=== PATIENT | female | born 1960 | race Caucasian/White ===

== ENCOUNTER → 2018-01-21 | Outpatient (CLI) | payer BC ==
--- NOTE | 2018-01-24 13:13 | MM ---
Reason for exam: screening (asymptomatic). Last mammogram was performed 2 years and 4 months ago. History: Family history of breast cancer in aunt. Benign stereotactic core biopsy, 2002. Physical Findings: A clinical breast exam by your physician is recommended on an annual basis and results should be correlated with mammographic findings. MG 3D Screening Mammo W/Cad Bilateral CC and MLO view(s) were taken. Prior study comparison: September 29, 2015, bilateral MG screening mammo w CAD. October 27, 2013, left breast MG diagnostic mammo LT w CAD. There are scattered fibroglandular densities. Previous mammotome biopsy in the left breast. No significant changes when compared with prior studies. ASSESSMENT: Benign, BI-RAD 2 RECOMMENDATION: Routine screening mammogram of both breasts in 1 year.
== END | disposition home or self-care (01) ==
LOC: RADMAMWWP 09:57
PROVIDERS: ATTEND Obstetrics & Gynecology
DX: Z12.31 Encounter for screening mammogram for malignant neoplasm of breast (principal)
CPT/HCPCS: 77063; 77067

== ENCOUNTER → 2019-09-12 | Outpatient (CLI) | payer BC ==
[2019-09-12 07:47] LABS: Basophils # (A) 0.1 k/uL (0-0.2); Basophils % (A) 1 %; Eosinophils # (A) 0.3 k/uL (0-0.7); Eosinophils % (A) 4 %; HCT 43.1 % (34.0-46.0); HGB 13.7 gm/dL (11.4-16.0); Lymphocytes # (A) 3.2 k/uL (1.0-4.8); Lymphocytes % (A) 39 %; MCH 30.9 pg (25.0-35.0); MCHC 31.7 g/dL (31.0-37.0); MCV 97.6 fL (80.0-100.0); Mean Platelet Volume 7.5; Monocytes # (A) 0.4 k/uL (0-1.0); Monocytes % (A) 5 %; Neutrophils % (A) 48 %; Platelet Count 311 k/uL (150-450); RBC 4.42 m/uL (3.80-5.40); RDW 12.2 % (11.5-15.5); WBC 8.3 k/uL (3.8-10.6)
[2019-09-12 11:54] LABS: T4, Free (Free Thyroxine) 0.9 ng/dL (0.80-1.80)
[2019-09-12 12:02] LABS: African American GFR (CKD) 57.7 (60.0-200.0); Albumin 3.9 g/dL (3.80-4.90); Albumin/Globulin Ratio 1.77 (1.60-3.17); Anion Gap 5.1 mmol/L (4.00-12.00); BUN/Creat Ratio 11.67 Ratio (12.00-20.00); Calcium 9.8 mg/dL (8.7-10.3); Carbon Dioxide 28.9 mmol/L (21.6-31.8); Chol/HDL Ratio 3.87; Globulin 2.2 g/dL (1.6-3.3); LDL Cholesterol,Calculated 88.4 mg/dL (0.0-131.0); Non-African American GFR(CKD) 49.8 (60.0-200.0); Potassium 4.5 mmol/L (3.5-5.5); Total Bilirubin 0.2 mg/dL (0.2-1.2); Total Protein 6.1 g/dL (6.2-8.2); VLDL Calculation 43.6 mg/dL (5.00-40.00)
[2019-09-12 13:13] LABS: Hemoglobin A1C 6.3 % (4.0-6.0)
== END | disposition home or self-care (01) ==
LOC: LABWHC1 07:05
PROVIDERS: ATTEND Internal Medicine Critical Care Medicine
DX: I25.10 Atherosclerotic heart disease of native coronary artery without angina pectoris (principal); E78.5 Hyperlipidemia, unspecified; I73.00 Raynaud's syndrome without gangrene; M35.00 Sjogren syndrome, unspecified
CPT/HCPCS: 36415; 80053; 80061; 82306; 83036; 84439; 84443; 85025

== ENCOUNTER → 2019-12-03 | Outpatient (CLI) | payer BC ==
--- NOTE | 2019-12-03 22:23 | BD ---
EXAMINATION TYPE: Axial Bone Density DATE OF EXAM: 12/03/2019 COMPARISON: 09/29/2015 CLINICAL HISTORY: Disorder of bone. Postmenopausal female. Height: 60.5 IN Weight: 118 LBS FRAX RISK QUESTIONS: Rheumatoid Arthritis: YES Current Tobacco Use: YES RISK FACTORS HISTORY OF: Active: YES Postmenopausal woman: PARTIAL HYST AGE 47 MEDICATIONS: Additional Medications: CALCIUM, ASPIRIN, BENADRYL, CARAFATE, EFFEXOR,JOEY, LASIX, LOVASTATIN, TOPA MAX, LOPAMAX, TRAZODONE, JARDIANCE, MAGNESIUM, FISH OIL, EXAM MEASUREMENTS: Bone mineral densitometry was performed using the Snagsta System. Bone mineral density as measured about the Lumbar spine is: ----- L1-L4(G/cm2): 0.857 T Score Values are as follows: ----- L2: -2.7 ----- L3: -2.4 ----- L4: -3.0 ----- L1-L4: -2.7 Bone mineral density has: Decreased -7.5% since study of: 09/29/2015 Bone mineral density about the R hip (g/cm2): 0.674 Bone mineral density about the L hip (g/cm2): 0.726 T Score values are as follows: -----R Neck: -2.6 -----L Neck: -2.2 -----R Total: -2.2 -----L Total: -2.0 Bone mineral density has: Decreased -9.7% since study of: 09/29/2015 IMPRESSION: Osteoporosis (T Score less than -2.5) is now present. Interval demineralization progression noted. There is increased fracture risk and therapy is usually indicated based on age. Re-Screen 1-2 years. NOTE: T-SCORE=SD OF THE YOUNG ADULT MEAN.
== END | disposition home or self-care (01) ==
LOC: RADBDWWP 10:44
PROVIDERS: ATTEND Obstetrics & Gynecology
DX: M81.0 Age-related osteoporosis without current pathological fracture (principal)
CPT/HCPCS: 77080

== ENCOUNTER → 2020-01-19 | Outpatient (CLI) | payer BC ==
--- NOTE | 2020-01-20 14:29 | MM ---
Reason for exam: screening (asymptomatic). Last mammogram was performed 2 years ago. History: Family history of breast cancer in aunt. Benign stereotactic core biopsy, 2002. Physical Findings: A clinical breast exam by your physician is recommended on an annual basis and results should be correlated with mammographic findings. MG 3D Screening Mammo W/Cad Bilateral CC and MLO view(s) were taken. Prior study comparison: January 21, 2018, bilateral MG 3d screening mammo w/cad. September 29, 2015, bilateral MG screening mammo w CAD. The breast tissue is heterogeneously dense. This may lower the sensitivity of mammography. Previous mammotome biopsy in the left breast. No significant changes when compared with prior studies. ASSESSMENT: Benign, BI-RAD 2 RECOMMENDATION: Routine screening mammogram of both breasts in 1 year.
== END | disposition home or self-care (01) ==
LOC: RADMAMWWP 14:48
PROVIDERS: ATTEND Obstetrics & Gynecology
DX: Z12.31 Encounter for screening mammogram for malignant neoplasm of breast (principal)
CPT/HCPCS: 77063; 77067

== ENCOUNTER 2020-09-30 10:21 | Day surgery (SDC) | payer BC ==
[2020-09-27 16:00] VITALS: BMI 22.4
[~2020-09-30 10:21] MED LIST: ALPRAZolam 0.25 MG TAB PO PRN; ALPRAZolam 0.5 MG TAB PO PRN; ASPIRIN 325 MG TAB PO PRN; HEPARIN SODIUM,PORCINE 10,000 UNIT in SODIUM CHLORIDE 0.9% 1,000 ML IRRIGATION PRN; HEPARIN SODIUM,PORCINE 2,500 UNIT in SODIUM CHLORIDE 0.9% 250 ML IRRIGATION PRN; SODIUM CHLORIDE 0.9% 1,000 ML in EMPTY BAG 1 BAG IV ONE; ZOLPIDEM 5 MG TAB PO PRN
[2020-09-30 10:55] VITALS: RESP 16; TEMP 98.9
[2020-09-30 12:03] LABS: Basophils % (A) 0 %; Eosinophils % (A) 0 %; HCT 40.9 % (34.0-46.0); HGB 13.6 gm/dL (11.4-16.0); Lymphocytes # (A) 0.7 k/uL (1.0-4.8); Lymphocytes % (A) 11 %; MCH 32.7 pg (25.0-35.0); MCHC 33.3 g/dL (31.0-37.0); MCV 98.3 fL (80.0-100.0); Mean Platelet Volume 8.3; Monocytes # (A) 0.1 k/uL (0-1.0); Monocytes % (A) 2 %; Neutrophils # (A) 5.6 k/uL (1.3-7.7); Neutrophils % (A) 87 %; Platelet Count 316 k/uL (150-450); RBC 4.16 m/uL (3.80-5.40); RDW 13.2 % (11.5-15.5); WBC 6.5 k/uL (3.8-10.6)
[2020-09-30 12:13] LABS: Calcium 9.6 mg/dL (8.4-10.2)
[2020-09-30] MEDS ORDERED: MIDAZOLAM 2 MG/2 ML VIAL IV ONE (12:33)
[2020-09-30] MEDS ORDERED: LIDOCAINE 1% INJ 10MG/ML (20 ML MDV) SQ ONE (12:36)
[2020-09-30] MEDS ORDERED: IOPAMIDOL-250 100ML BTL INTRAARTER ONE (12:46)
[2020-09-30] MEDS ORDERED: SODIUM CHLORIDE 0.9% 1,000 ML IV SCH (13:00)
--- NOTE | 2020-09-30 13:22 | IR ---
EXAMINATION TYPE: IR angio abdominal w runoff DATE OF EXAM: 09/30/2020 COMPARISON: NONE HISTORY: Fluoroscopy time. Fluoroscopy was provided to the referring clinician.
--- NOTE | 2020-09-30 14:32 | LTR ---
Re: Sophia Manzanares (62) Dear , Ms. Sophia Manzanares was seen in the office recently for cardiac followup and at that point she was experiencing right foot discomfort with exertion, but for the last few days it was even at rest. I did not feel any good pedal pulse on her on the right side and because of that, I scheduled the patient to undergo a duplex study and that revealed occluded right SFA, which was confirmed by angiogram today. The patient is going to undergo a FUNERAL ARRANGEMENT DIRECTOR of the right SFA to be performed in the next few days. I want to thank you for allowing me to participate in this patient's care. Please do not hesitate to call with any questions or concerns. Sincerely, Flip Martinez M.D. JANEY / PRITI: [id number] /
--- NOTE | 2020-09-30 14:44 | AN ---
ANGIOGRAPHY REPORT DATE OF SERVICE: 09/30/2020 PERFORMING PHYSICIAN: Flip Martinez M.D. PROCEDURE PERFORMED: 1. Abdominal aortogram. 2. Bilateral lower extremity runoff. INDICATION: Right foot resting pain without tissue loss consistent with critical limb ischemia. She underwent an arterial duplex study which revealed severe femoral-popliteal disease on the right side. APPROACH: Right common femoral artery. COMPLICATIONS: None. LEVEL OF SEDATION: Moderate, with sedation length of 10 minutes. PROCEDURE DESCRIPTION: After obtaining informed consent, the patient was brought to the cardiac label pinker. The right common femoral artery was cannulated using micropuncture technique. The micropuncture wire passed easily. Then I placed a 5-Georgian sheath at the right common femoral artery. Please note that access to the right common femoral artery was performed using ultrasound guidance. After that I did an abdominal aortogram and bilateral lower extremity runoff using a 5- Georgian pigtail catheter which was initially placed at the level of the renal arteries, then it was pulled into above the bifurcation of the aorta to right and left common iliac arteries. The procedure was completed without any complication. SELECTIVE PERIPHERAL ANGIOGRAM: 1. The aorta appeared to be angiographically normal. It bifurcates into right and left common iliac arteries. 2. Common iliac arteries. The right and left common iliac arteries appeared to be angiographically normal. 3. Internal iliac arteries. Both are patent. 4. External iliac arteries. The right external iliac artery appeared to be angiographically normal and the left external iliac artery appeared to have mild disease only. 5. Common femoral arteries. The right common femoral artery appeared to have mild to moderate disease and the left common femoral artery appeared to be angiographically normal. 6. Profundae. Both profundae are patent. 7. SFA. The right SFA is occluded in the mid portion and the left SFA has mild to moderate diffuse disease. 8. Popliteals. Both popliteals appeared to be angiographically normal. 9. Below the knee. There is 3-vessel runoff below the knee bilaterally with sluggish flow to the right. CONCLUSION: Occluded right SFA in the mid portion. POST-PROCEDURE MANAGEMENT: 1. MERCANTILE AGENT of the right SFA. 2. Follow up with the patient. MMODL / IJN: [id number] /
[2020-09-30 16:44] VITALS: BP 138/63; PULSE 64
== END 2020-09-30 17:52 | disposition home or self-care (01) ==
LOC: CATHCVL 10:21
PROVIDERS: ATTEND Internal Medicine Interventional Cardiology
DX: I70.92 Chronic total occlusion of artery of the extremities (principal)
CPT/HCPCS: 36200; 75625; 75716; 76937; 80048; 85025; C1769 ×4; C1894; J2250; J2001; Q9966

== ENCOUNTER 2020-10-13 11:01 | Day surgery (SDC) | payer BC ==
[~2020-10-13 11:01] MED LIST changes: -ALPRAZolam 0.5 MG TAB PO PRN; -HEPARIN SODIUM,PORCINE 10,000 UNIT in SODIUM CHLORIDE 0.9% 1,000 ML IRRIGATION PRN; -HEPARIN SODIUM,PORCINE 2,500 UNIT in SODIUM CHLORIDE 0.9% 250 ML IRRIGATION PRN; +SODIUM CHLORIDE 0.9% 500 ML 500 ML with niCARdipine 6.25 MG, NITROGLYCERIN-D5W PMX 0.05... IV ONE; -ZOLPIDEM 5 MG TAB PO PRN
[2020-10-13] MEDS ORDERED: SODIUM CHLORIDE 0.9% 1,000 ML IV ONE (11:14)
[2020-10-13 11:42] LABS: Basophils % (A) 0 %; Eosinophils % (A) 0 %; HCT 45.2 % (34.0-46.0); HGB 15.3 gm/dL (11.4-16.0); Lymphocytes # (A) 0.8 k/uL (1.0-4.8); Lymphocytes % (A) 10 %; MCH 32.9 pg (25.0-35.0); MCHC 33.8 g/dL (31.0-37.0); MCV 97.3 fL (80.0-100.0); Mean Platelet Volume 7.5; Monocytes # (A) 0.1 k/uL (0-1.0); Monocytes % (A) 1 %; Neutrophils # (A) 7.2 k/uL (1.3-7.7); Neutrophils % (A) 88 %; Platelet Count 391 k/uL (150-450); RBC 4.65 m/uL (3.80-5.40); RDW 12.6 % (11.5-15.5); WBC 8.1 k/uL (3.8-10.6)
[2020-10-13 11:51] LABS: Calcium 10.3 mg/dL (8.4-10.2); Potassium 3.9 mmol/L (3.5-5.1)
[2020-10-13] MEDS ORDERED: LIDOCAINE 1% INJ 10MG/ML (20 ML MDV) ONE (13:19)
[2020-10-13] MEDS ORDERED: MIDAZOLAM 2 MG/2 ML VIAL IV ONE (13:30)
[2020-10-13] MEDS ORDERED: LIDOCAINE 1% INJ 10MG/ML (20 ML MDV) SQ ONE (13:33)
[2020-10-13] MEDS ORDERED: HEPARIN SODIUM 1,000 UN/ML (10ML VL) IV ONE (13:40)
[2020-10-13] MEDS ORDERED: fentaNYL (PF) 50 MCG/ML 2 ML AMP ONE (13:42)
[2020-10-13] MEDS: fentaNYL (PF) 50 MCG/ML 2 ML AMP IV ONE ×2 (13:45→14:30)
[2020-10-13] MEDS: NITROGLYCERIN 1000MCG/10ML SYRINGE INTRAARTER ONE ×2 (14:35→14:40)
[2020-10-13] MEDS: niCARdipine Syringe (1,000 mcg/10 mL) INTRAARTER ONE ×3 (14:36→14:40)
[2020-10-13] MEDS ORDERED: IOPAMIDOL-370 100ML BTL INJ ONE (14:37)
[2020-10-13] MEDS ORDERED: CLOPIDOGREL 75 MG TAB PO ONE (14:47)
[2020-10-13] MEDS ORDERED: SODIUM CHLORIDE 0.9% 1,000 ML in EMPTY BAG 1 BAG IV SCH (15:00)
--- NOTE | 2020-10-13 15:55 | IR ---
Fluoroscopy HISTORY: Pain in right leg 14.9 minutes fluoroscopy time supplied to the referring clinician. 368 intraoperative C-arm images d ocument the procedure. See dictated report from cardiology.
[2020-10-13 16:46] VITALS: RESP 18
[2020-10-13] MEDS ORDERED: ATROPINE SULFATE 0.1 MG/ML 10ML SYRINGE ONE (17:54)
[2020-10-13] MEDS: VENLAFAXINE HCL 75 MG TAB PO SCH (20:36)
[2020-10-13] MEDS: TOPIRAMATE 25 MG TAB PO SCH (20:36)
[2020-10-13] MEDS: SUCRALFATE 1 GM TAB PO SCH (20:36)
[2020-10-13] MEDS ORDERED: diphenhydrAMINE 25 MG CAP PO SCH (21:00)
[2020-10-13] MEDS ORDERED: traZODone HCL 100 MG TAB PO SCH (21:00)
[2020-10-13] MEDS ORDERED: EZETIMIBE 10 MG TAB PO SCH (21:00)
[2020-10-13] MEDS ORDERED: ASPIRIN 325 MG TAB PO SCH (21:00)
[2020-10-13] MEDS ORDERED: MORPHINE SULFATE ER 15 MG TABLET PO SCH (21:00)
[2020-10-13] MEDS ORDERED: NON FORMULARY DRUG (Lovastatin 40 MG Tab) PO SCH (21:00)
--- NOTE | 2020-10-13 21:35 | LTR ---
October 13, 2020 To: Dr. Juanpablo Inman Re: Sophia FryeAwais (1960) Dear Dr. Inman, Ms. Sophia Manzanares underwent successful angioplasty of the right femoral artery with an excellent angiographic result and reduction of stenosis from 100% to 0%. I want to thank you for allowing me to participate in this patient's care. Please do not hesitate to call with any questions or concerns. Sincerely, Flip Martinez M.D. JANEY / PRITI: [id number] /
[2020-10-14 05:29] VITALS: TEMP 98.1
[2020-10-14] MEDS ORDERED: LEVOTHYROXINE 25 MCG TAB PO SCH (06:30)
[2020-10-14 07:58] LABS: Potassium 3.5 mmol/L (3.5-5.1)
[2020-10-14 08:09] LABS: Basophils % (A) 0 %; Eosinophils # (A) 0.1 k/uL (0-0.7); Eosinophils % (A) 1 %; HCT 34.9 % (34.0-46.0); Lymphocytes # (A) 2.6 k/uL (1.0-4.8); Lymphocytes % (A) 25 %; MCH 33.1 pg (25.0-35.0); MCV 97.5 fL (80.0-100.0); Mean Platelet Volume 7.7; Monocytes # (A) 0.4 k/uL (0-1.0); Monocytes % (A) 4 %; Neutrophils % (A) 68 %; Platelet Count 276 k/uL (150-450); RBC 3.58 m/uL (3.80-5.40); RDW 12.7 % (11.5-15.5); WBC 10.4 k/uL (3.8-10.6)
--- NOTE | 2020-10-14 08:18 | AN ---
ANGIOGRAPHY REPORT DATE OF SERVICE: October 13, 2020. PERFORMING PHYSICIAN: Flip Martinez MD. PROCEDURE PERFORMED: 1. Atherectomy of the right SFA using the HawkOne device with extraction of plaque. 2. Intravascular ultrasound (IVUS) of the right SFA. 3. Successful balloon angioplasty of the mid and distal right SFA. 4. Successful stenting of the proximal right SFA. 5. Right lower extremity angiogram. 6. Left common femoral artery angiogram. 7. Ultrasound-guided access of the left common femoral artery. INDICATION: Critical limb ischemia in this 60-year-old female patient with coronary artery disease as well as hypertension and dyslipidemia and borderline diabetes. APPROACH: Left common femoral artery. COMPLICATION: None. LEVEL OF SEDATION: Moderate with sedation length of 78 minutes. PROCEDURE DESCRIPTION: After obtaining informed consent, the patient was brought to the cardiac catholic priest. The left common femoral artery was cannulated using micropuncture technique and a micropuncture wire passed easily. Then I placed a 6-Mozambican sheath 70 cm at the left common femoral artery. At that point, anticoagulation was initiated using heparin. Continuous ACT monitoring was performed throughout the procedure. After that, I did select the right common femoral artery using 0.035 stiff Glidewire with the backup support of 5-Mozambican RIM catheter. After that I did advance the sheath over the wire and the catheter to the right common femoral artery. Right lower extremity angiogram was performed and revealed 3 vessel runoff below the knee on the right side with a sluggish flow as well as occluded right SFA in the mid to distal portion and severe diffuse disease involving the right SFA as well as intermediate lesion involving the right common femoral artery. After that I did cross the LUNCHEONETTE MANAGER of the right SFA using a 014 wire. I did intravascular ultrasound which showed that I was in the true lumen with a diameter of 5 mm. It did also revealed the plaque in the right common femoral artery appeared to be in the range of 50% to 60%. Only. After that I did atherectomy of the right SFA using the HawkOne device and then I did balloon angioplasty. There was dissection in the proximal right SFA which I stented using 6 x 60 mm Zilver drug-eluting stent which was dilated using 5 mm balloon. After that, for the mid and distal right SFA, I ballooned using 5 mm x 200 Impact drug coated balloon which was inflated under its nominal pressure for 3 minutes. The final angiogram showed great results and the procedure was completed without any complication. POSTPROCEDURE MANAGEMENT: 1. Dual anti-platelet therapy. 2. Aggressive cholesterol control. 3. Risk factor modifications. 4. Monitor the lesion at the right common femoral artery. MMODL / IJN: [id number] /
[2020-10-14 08:20] LABS: HGB 11.9 gm/dL (11.4-16.0)
[2020-10-14] MEDS ORDERED: NON FORMULARY DRUG (Biotin [Biotin] 5 MG Capsule) PO SCH (09:00)
[2020-10-14] MEDS ORDERED: MULTIVITAMINS, THERA 1 EACH TAB PO SCH (09:00)
[2020-10-14] MEDS ORDERED: CLOPIDOGREL 75 MG TAB PO SCH (09:00)
[2020-10-14] MEDS ORDERED: FUROSEMIDE 40 MG TAB PO SCH (09:00)
[2020-10-14] MEDS ORDERED: LORATADINE 10 MG TAB PO SCH (09:00)
[2020-10-14] MEDS ORDERED: MORPHINE SULFATE ER 30 MG TABLET PO SCH ×2 (09:00→21:00)
[2020-10-14] MEDS ORDERED: MAGNESIUM OXIDE 400 MG TAB PO SCH (09:00)
[2020-10-14] MEDS: TOPIRAMATE 25 MG TAB PO SCH (10:15)
[2020-10-14] MEDS: VENLAFAXINE HCL 75 MG TAB PO SCH (10:15)
[2020-10-14] MEDS: SUCRALFATE 1 GM TAB PO SCH (10:15)
[2020-10-14 10:26] VITALS: BP 125/68; PULSE 61
--- NOTE | 2020-10-14 10:56 | DS ---
DISCHARGE SUMMARY ADMISSION DATE: October 13, 2020. DISCHARGE DATE: October 14, 2020. BRIEF HISTORY: This is a 60-year-old female patient with coronary artery disease as well as hypertension and dyslipidemia who was experiencing symptoms consistent with resting pain related to critical limb ischemia. She underwent an arterial duplex study which revealed occluded right SFA. She underwent an angiogram which confirmed the above findings. She was admitted to the hospital yesterday and she underwent successful recanalizing, chronically occluded right SFA along with atherectomy and balloon angioplasty and stenting only on the proximal portion of the right SFA. The patient was seen this morning. The left groin which is the access site is soft and nontender and without any bruises. On examination, she does have a faint pulse in her dorsalis pedis as well as posterior tibial artery. Please note that the patient was found to have also intermediate nonobstructive lesion involving the right common femoral artery and the lesion appeared to be in the range of 60%. I did not feel it is tight enough to be revascularized at this point. The patient is going to be discharged home on dual anti-platelet therapy. Because she is intolerant to statin, she is currently on ezetimibe. I will follow up with the patient in a week in the office. MMODL / IJN: [id number] /
[2020-10-15] MEDS ORDERED: MORPHINE SULFATE ER 15 MG TABLET PO SCH (09:00)
== END 2020-10-14 10:41 | disposition home or self-care (01) ==
LOC: CATHCVL 11:01 → 3SCARD 14:45 → CATHCVL 10-14 10:41
PROVIDERS: ATTEND Internal Medicine Interventional Cardiology
DX: I70.221 Atherosclerosis of native arteries of extremities with rest pain, right leg (principal); I25.10 Atherosclerotic heart disease of native coronary artery without angina pectoris; I10 Essential (primary) hypertension; E78.5 Hyperlipidemia, unspecified; I70.92 Chronic total occlusion of artery of the extremities; R73.03 Prediabetes
CPT/HCPCS: 37227; 37252; 80048; 85025; J2250; J2001; J3010; J1644; Q9967

== ENCOUNTER → 2020-10-27 | Outpatient (CLI) | payer BC ==
--- NOTE | 2020-10-28 07:28 | CT ---
EXAMINATION TYPE: CT abdomen pelvis w con DATE OF EXAM: 10/27/2020 HISTORY: c/o bladder pressure and pelvic pain CT DLP: 406.5mGycm Automated Exposure Control for Dose Reduction was Utilized. CONTRAST: CT scan of the abdomen and pelvis is performed with oral and with IV Contrast, patient injected with 100 mL of Isovue 300. COMPARISON: CT December 13, 2009 FINDINGS: LUNG BASES: Overlying sternal wires and mediastinal clips are partially imaged. There is new tiny lef t pleural effusion. LIVER/GB: Gallbladder nodules surgically absent. Bile ducts measure upper limits of normal after chol ecystectomy. PANCREAS: No significant abnormality is seen. SPLEEN: No significant abnormality is seen. ADRENALS: No significant abnormality is seen. KIDNEYS: Symmetric cortical medullary uptake and excretion from both kidneys without hydronephrosis s een bilaterally. Suboptimal evaluation of bladder due to poor distention. BOWEL: Oral contrast reaches level of the proximal transverse colon. No suspicious small or large bow el dilatation. Lap band device redemonstrated, stable and satisfactory in position. Mild to moderate wall thickening in the sigmoid colon in the pelvis without surrounding fat stranding. UTERUS/ADNEXA: Uterus surgically absent or markedly atrophic. LYMPH NODES: No greater than 1cm abdominal or pelvic lymph nodes are appreciated. OSSEOUS STRUCTURES: Slight scoliotic curvature redemonstrated. OTHER: Mild to moderate calcified plaque of the aorta extends into branch vessels. Metallic stent rig ht superficial femoral artery is noted focal significant stenosis greater than 50% just proximal to t he coronal image 32 is noted. IMPRESSION: 1. [id number] sigmoid colonic wall thickening uncomplicated could reflect product of a uncompli cated mild colitis versus product of poor distention. Correlate clinically. 2. Significant stenosis greater than 50% proximal right superficial femoral artery just before metall ic stent. Correlate for right lower extremity radiculopathy type symptoms
== END | disposition home or self-care (01) ==
LOC: RADCTMAIN 16:12
PROVIDERS: ATTEND Internal Medicine Critical Care Medicine
DX: K63.89 Other specified diseases of intestine (principal)
CPT/HCPCS: 74177; Q9967

== ENCOUNTER → 2021-01-24 | Outpatient (CLI) | payer BC ==
--- NOTE | 2021-01-26 12:09 | MM ---
Reason for exam: screening (asymptomatic). Last mammogram was performed 1 year ago. History: Patient is postmenopausal. Family history of breast cancer in maternal aunt at age 50. Benign stereotactic core biopsy, 2002. Physical Findings: A clinical breast exam by your physician is recommended on an annual basis and results should be correlated with mammographic findings. MG 3D Screening Mammo W/Cad Bilateral CC and MLO view(s) were taken. Prior study comparison: January 19, 2020, bilateral MG 3d screening mammo w/cad. January 21, 2018, bilateral MG 3d screening mammo w/cad. There are scattered fibroglandular densities. Previous mammotome biopsy in the left breast. No significant changes when compared with prior studies. ASSESSMENT: Negative, BI-RAD 1 RECOMMENDATION: Routine screening mammogram of both breasts in 1 year.
== END | disposition home or self-care (01) ==
LOC: RADMAMWWP 10:56
PROVIDERS: ATTEND Obstetrics & Gynecology
DX: Z12.31 Encounter for screening mammogram for malignant neoplasm of breast (principal); Z80.3 Family history of malignant neoplasm of breast; Z78.0 Asymptomatic menopausal state
CPT/HCPCS: 77063; 77067

== ENCOUNTER → 2021-01-24 | Outpatient (CLI) | payer BC ==
[2021-01-24 11:56] LABS: Appearance,Urine Cloudy (Clear); Bacteria,Urine Moderate /hpf; Bilirubin,Urine Negative (Negative); Blood,Urine Trace (Negative); Color,Urine Yellow; Glucose,Urine (UA) 4+ (Negative); Hyaline Casts,Urine 4 /lpf (0-2); Ketones,Urine Negative (Negative); Leukocyte Esterase,Urine Large (Negative); Mucus,Urine Rare /hpf; Nitrite,Urine Negative (Negative); Protein,Urine 1+ (Negative); RBC,Urine 6 /hpf (0-5); Specific Gravity,Urine 1.022 (1.001-1.035); Squamous Epithelial Cell,Urine 3 /hpf (0-4); Urobilinogen,Urine <2.0 mg/dL (<2.0); WBC,Urine >182 /hpf (0-5)
== END | disposition home or self-care (01) ==
LOC: LABWHC1 11:10
PROVIDERS: ATTEND Internal Medicine Critical Care Medicine
DX: N39.0 Urinary tract infection, site not specified (principal)
CPT/HCPCS: 81001; 87086

== ENCOUNTER → 2021-07-21 | Outpatient (CLI) | payer BC | END | disposition home or self-care (01) | LOC: LABWHC1 15:53 | PROVIDERS: ATTEND Internal Medicine Critical Care Medicine | DX: Z53.9 Procedure and treatment not carried out, unspecified reason (principal) ==

== ENCOUNTER → 2022-06-07 | Outpatient (CLI) | payer BC ==
[2022-06-07 15:24] LABS: Basophils # (A) 0.11 X 10*3/uL (0.00-0.10); Basophils % (A) 1.2 %; Eosinophils # (A) 0.31 X 10*3/uL (0.04-0.35); Eosinophils % (A) 3.3 %; HCT 44.9 % (37.2-46.3); Immature Grans, Automated 0.5 %; Lymphocytes # (A) 2.67 X 10*3/uL (0.90-5.00); Lymphocytes % (A) 28.2 %; MCH 31.1 pg (27.0-32.0); MCHC 31.2 g/dL (32.0-37.0); MCV 99.8 fL (80.0-97.0); Mean Platelet Volume 10.7 fL (9.5-12.2); Monocytes # (A) 0.53 X 10*3/uL (0.20-1.00); Monocytes % (A) 5.6 %; NRBC Per 100 WBC 0 /100 WBCS (0.0-0.0); Neutrophils % (A) 61.2 %; Platelet Count 345 X 10*3/uL (140-440); RDW 12.4 % (11.5-14.5); WBC 9.47 X 10*3/uL (4.50-10.00)
[2022-06-07 16:37] LABS: Chol/HDL Ratio 3.37 Ratio; LDL Cholesterol,Calculated 93.6 mg/dL (0.0-131.0)
[2022-06-07 16:38] LABS: ALT 32 U/L (8-44); AST 44 U/L (13-35); African American GFR (CKD) 54.8 (60.0-200.0); Albumin 4.5 g/dL (3.8-4.9); Albumin/Globulin Ratio 1.84 (1.60-3.17); Alkaline Phosphatase 167 U/L (41-126); BUN/Creat Ratio 9.59 Ratio (12.00-20.00); Blood Urea Nitrogen 11.8 mg/dL (9.0-27.0); Calcium 10.4 mg/dL (8.7-10.3); Carbon Dioxide 27.7 mmol/L (20.0-27.5); Chloride 103 mmol/L (96-109); Globulin 2.4 g/dL (1.6-3.3); Glucose 133 mg/dL (70-110); Non-African American GFR(CKD) 47.3 (60.0-200.0); Potassium 4.5 mmol/L (3.5-5.5); Sodium 144 mmol/L (135-145); Total Bilirubin <0.15 mg/dL (0.30-1.20); Total Protein 6.9 g/dL (6.2-8.2)
== END | disposition home or self-care (01) ==
LOC: LABPAT 08:17
PROVIDERS: ATTEND Internal Medicine Interventional Cardiology
DX: Z01.812 Encounter for preprocedural laboratory examination (principal); I70.212 Atherosclerosis of native arteries of extremities with intermittent claudication, left leg
CPT/HCPCS: 80053; 80061; 82306; 83036; 84439; 84443; 85025

== ENCOUNTER → 2022-06-07 | Outpatient (CLI) | payer BC | END | disposition home or self-care (01) | LOC: LABWHC1 08:19 | PROVIDERS: ATTEND Internal Medicine Critical Care Medicine | DX: I25.10 Atherosclerotic heart disease of native coronary artery without angina pectoris (principal); E03.9 Hypothyroidism, unspecified; E78.5 Hyperlipidemia, unspecified; M79.7 Fibromyalgia; M35.00 Sjogren syndrome, unspecified ==

== ENCOUNTER 2022-09-14 07:18 | Inpatient (IN) | payer BC ==
--- NOTE | 2022-09-14 07:38 | ED ---
General Adult HPI - General Stated complaint: MUNIR Time Seen by Provider: 09/14/22 07:31 Source: patient, family () Limitations: no limitations - History of Present Illness Initial comments: Patient presents to the emergency room with complaints of being sick since Sunday with shortness of breath, congestion, body aches, hourly diarrhea, productive cough and also vomiting mucous. Did at home Covid test and negative. Patient seen PCP, Dr Inman on Sunday and started on steroids and abx. -: days(s) (5) Consistency: constant Improves with: none Associated Symptoms: cough, shortness of breath, other (diarrhea, body aches) Treatments Prior to Arrival: other (medrol dose pack, doxycycline) - Related Data Home Medications Medication Instructions Recorded Confirmed Aspirin 325 mg PO HS 07/01/13 09/14/22 Lovastatin [Mevacor] 40 mg PO HS 07/01/13 09/14/22 Sucralfate [Carafate] 1 tab PO BID 07/01/13 09/14/22 Topiramate [Topamax] 50 mg PO BID 07/01/13 09/14/22 traZODone HCL [Desyrel] 100 mg PO HS 07/01/13 09/14/22 Biotin 5 mg PO DAILY 09/27/20 09/14/22 Ezetimibe [Zetia] 10 mg PO HS 09/27/20 09/14/22 Furosemide [Lasix] 20 mg PO QAM 09/27/20 09/14/22 Magnesium 200 mg PO DAILY 09/27/20 09/14/22 Multivitamins, Thera [Multivitamin 1 tab PO DAILY 09/27/20 09/14/22 (formulary)] diphenhydrAMINE [Benadryl] 25 mg PO HS 09/27/20 09/14/22 Gabapentin [Neurontin] 200 mg PO TID 06/09/22 09/14/22 traMADol HCl [Ultram] 50 mg PO TID PRN 06/09/22 09/14/22 Cetirizine HCl [Zyrtec] 10 mg PO DAILY 09/14/22 09/14/22 Cholecalciferol [Vitamin D3 (25 50 mcg PO DAILY 09/14/22 09/14/22 Mcg = 1000 Iu)] Levothyroxine Sodium [Synthroid] 75 mcg PO DAILY 09/14/22 09/14/22 Venlafaxine HCl ER [Effexor Xr] 75 mg PO BID 09/14/22 09/14/22 Previous Rx's Medication Instructions Recorded Clopidogrel [Plavix] 75 mg PO DAILY #90 tab 10/14/20 Allergies Allergy/AdvReac Type Severity Reaction Status Date / Time iodine AdvReac very hot Verified 09/14/22 08:50 feeling with IV contrast Syrcyit-MFS-ZkH Reductase AdvReac muscle Verified 09/14/22 08:50 Inhibitor pain, [Qorodpr-Lvo-Nsz Reductase fatigue Inhibitor] Review of Systems ROS Statement: Those systems with pertinent positive or pertinent negative responses have been documented in the HPI. ROS Other: All systems not noted in ROS Statement are negative. Past Medical History Past Medical History: Chest Pain / Angina, Fibromyalgia, Hyperlipidemia, Hypertension, Myocardial Infarction ([place]), Rheumatoid Arthritis ([place]), Seizure Disorder, Thyroid Disorder Additional Past Medical History / Comment(s): Migraines, 1 seizure in 2012, sarcoidosis, raynauds, LLE edema Last Myocardial Infarction Date:: 04/2012 History of Any Multi-Drug Resistant Organisms: None Reported Past Surgical History: Appendectomy, Bariatric Surgery, Cholecystectomy, Coronary Bypass/CABG, Heart Catheterization With Stent, Hysterectomy Additional Past Surgical History / Comment(s): 09/30/20 BILATERAL ARTERIOGRAM AND RUNOFF, partial hysterectomy, right leg angioplasty with stenting October 2021, carpal tunnel surgery bilateral wrists, CABG 2012 1 vessel Past Anesthesia/Blood Transfusion Reactions: No Reported Reaction Additional Past Anesthesia/Blood Transfusion Reaction / Comment(s): woke up dur ing heart cath Date of Last Stent Placement:: 04/2011 Past Psychological History: Anxiety Smoking Status: Current some day smoker Past Alcohol Use History: None Reported, Rare Additional Past Alcohol Use History / Comment(s): Pt smokes about 1 PPD, has started and stopped smoking multiple times in her life. Past Drug Use History: Marijuana Additional Drug Use History / Comment(s): Marijuana use once a week - Past Family History Mother Family Medical History: Deep Vein Thrombosis (DVT) Additional Family Medical History / Comment(s): Lupus Father Family Medical History: Myocardial Infarction ([place]) Additional Family Medical History / Comment(s): from [place] General Exam Limitations: no limitations General appearance: alert, in no apparent distress, anxious Head exam: Present: atraumatic Eye exam: Present: normal appearance. Absent: scleral icterus, conjunctival i njection, periorbital swelling ENT exam: Present: mucous membranes moist Neck exam: Present: full ROM. Absent: tenderness, meningismus Respiratory exam: Present: wheezes. Absent: respiratory distress, rales, rhonchi, stridor, chest wall tenderness Cardiovascular Exam: Present: regular rate GI/Abdominal exam: Present: soft. Absent: distended, tenderness, guarding, rebound, rigid Extremities exam: Present: normal capillary refill. Absent: pedal edema Neurological exam: Present: alert, oriented X3, normal gait Psychiatric exam: Present: anxious Skin exam: Present: warm, dry, normal color. Absent: cyanosis, diaphoretic, petechiae, pallor Course Vital Signs 09/14/22 09/14/22 09/14/22 07:32 07:48 08:48 Temperature 97.9 F 97.9 F Pulse Rate 91 102 H Respiratory 20 20 22 Rate Blood Pressure 199/112 196/113 O2 Sat by Pulse 95 96 Oximetry Fraction of Inspired Oxygen (FIO2) 09/14/22 09/14/22 09/14/22 11:00 11:08 11:19 Temperature Pulse Rate 120 H 128 H 142 H Respiratory 28 H Rate Blood Pressure 154/110 O2 Sat by Pulse 100 Oximetry Fraction of Inspired Oxygen (FIO2) 09/14/22 09/14/22 09/14/22 11:51 12:00 12:03 Temperature 96.8 F L Pulse Rate 134 H 122 H 124 H Respiratory 20 28 H 28 H Rate Blood Pressure 204/116 157/104 157/104 O2 Sat by Pulse 99 99 99 Oximetry Fraction of Inspired Oxygen (FIO2) 09/14/22 09/14/22 09/14/22 12:11 12:12 12:24 Temperature Pulse Rate 129 H 133 H Respiratory 34 H Rate Blood Pressure O2 Sat by Pulse Oximetry Fraction of Inspired Oxygen (FIO2) 09/14/22 09/14/22 09/14/22 13:00 13:35 13:39 Temperature Pulse Rate 131 H 114 H Respiratory 34 H 26 H Rate Blood Pressure 188/133 141/85 O2 Sat by Pulse 99 100 Oximetry Fraction of 40 Inspired Oxygen (FIO2) 09/14/22 15:06 Temperature Pulse Rate 111 H Respiratory 20 Rate Blood Pressure 119/90 O2 Sat by Pulse 99 Oximetry Fraction of Inspired Oxygen (FIO2) [facility] Re[facility]uation #1: 09/14/22 09:15 Patient continues to have shortness of breath speaking in 2-3 word sentences. Repeat albuterol treatment was ordered along with Solu-Medrol. D-dimer is positive CT ordered. States ALLERGY to iodine is "inside" with pressure in her head. Denies any difficulty in breathing, rashes or nausea vomiting with iodine. Has been pretreated for CT's with Benadryl in the past Time: 09:15 Reevaluation #2: 09/14/22 09:40 Patient with history of anxiety, becoming very anxious after told elevated D- dimer and need for CT. Anxiety worsening since nurses having difficulty obtaining IV. Ativan was given. Time: 09:40 EKG Findings - EKG Results: EKG: interpreted by MIKE, sinus rhythm (EKG interpreted by me shows sinus rhythm with a ventricular rate of 82, AK interval 0.125, QRS 0.114, QTC 0.389, normal axis) Medical Decision Making - Medical Decision Making Was pt. sent in by a medical professional or institution (, PA, SOLDERER, urgent care, hospital, or jail...) When possible be specific @ -[No] Did you speak to anyone other than the patient for history (EMS, parent, family, police, friend...)? What history was obtained from this source @ - gave history of presenting illness and medication along with the dosing. States did not take her medications today. Denies any drug use. Did you review nursing and triage notes (agree or disagree)? Why? @ -[I reviewed and agree with nursing and triage notes] Were old charts reviewed (outside hosp., previous admission, EMS record, old EKG, old radiological studies, urgent care reports/EKG's, jail records)? Report findings @ -[No old charts were reviewed] Differential Diagnosis (chest pain, altered mental status, abdominal pain women, abdominal pain men, vaginal bleeding, weakness, fever, dyspnea, syncope, headache, dizziness, GI bleed, back pain, seizure, CVA, palpatations, mental health, musculoskeletal)? @ -Differential Dyspnea: Coronary syndrome, arrhythmia, tamponade, asthma, COPD, pulmonary embolism, pneumonia, pneumothorax, pulmonary effusion, anaphylaxis, diabetic ketoacidosis, flailed chest, pulmonary contusion, diaphragmatic rupture, anemia, neuromuscular , this is not meant to be an all-inclusive list. EKG interpreted by me (3pts min.). @ -yes EKG interpreted by me shows sinus rhythm with a ventricular rate of 82, AK interval 0.125, QRS 0.114, QTC 0.389, normal axis X-rays interpreted by me (1pt min.). @ -yes Chest x-ray interpreted by me shows trachea midline. Sternal wires intact. Cardiac silhouette within normal size. CT interpreted by me (1pt min.). @ -no U/S interpreted by me (1pt. min.). @ -no What testing was considered but not performed or refused? (CT, X-rays, U/S, labs)? Why? @ -none What meds were considered but not given or refused? Why? @ -[None] Did you discuss the management of the patient with other professionals (professionals i.e. , PA, SOLDERER, lab, RT, psych nurse, social sciences chair, cdc associate, teacher, environmental officer, pillowcase cleaner)? Give summary @ -Dr Bryant ANDRADE, recommended additional IVF, bipap and ICU admission Was smoking cessation discussed for >3mins.? @ -[No] Was critical care preformed (if so, how long)? @ -34 minutes Were there social determinants of health that impacted care today? How? (Homelessness, low income, unemployed, alcoholism, drug addiction, transportation, low edu. Level, literacy, decrease access to med. care, care home, rehab)? @ -[No] Was there de-escalation of care discussed even if they declined (Discuss DNR or withdrawal of care, Hospice)? DNR status @ -[No] What co-morbidities impacted this encounter? (DM, HTN, Smoking, COPD, CAD, Cancer, CVA, ARF, Chemo, Hep., AIDS, mental health diagnosis, sleep apnea, morbid obesity)? @ -Patient has history of angina, fibromyalgia, hyperlipidemia, hypertension, [place], rheumatoid arthritis, seizure disorder, thyroid disorder, migraines, sarcoidosis. Surgical history of appendectomy, bariatric surgery, cholecystectomy, coronary artery bypass graft, hysterectomy Was patient admitted / discharged? Hospital course, mention meds given and route, prescriptions, significant lab abnormalities, going to OR and other pertinent info. @ -Admitted. Patient presents to the emergency room with complaints of being sick since Sunday with shortness of breath, congestion, body aches, hourly diarrhea, productive cough and also vomiting mucous. Did at home Covid test and negative. Patient seen her PCP, Dr Inman on Sunday and started on steroids and abx. Patient is currently on prednisone and doxycycline prescribed by Dr. Inman. States she did not take any of her medications this morning. Chest x-ray interpreted by me shows trachea midline. Sternal wires intact. Cardiac silhouette within normal size. Radiologist interpretation jovanny bronchial cuffing suggesting bronchitis or asthma. Some patchy right basilar atelectasis versus developing infiltrate pneumonia. EKG interpreted by me shows sinus rhythm with a ventricular rate of 82, AK interval 0.125, QRS 0.114, QTC 0.389, normal axis Patient continues to have inspiratory expiratory wheezing after albuterol inhaler. Pulse ox 98%. Coronavirus swabs negative. She was given a dose of Solu-Medrol and a DuoNeb treatment. Labs show D-dimer elevated at 0.66. Lactic acid at 2.5. No evidence of leukocytosis. Hemoglobin and hematocrit are stable. Troponin 0.015. Patient became very anxious after notified of elevated d-dimer and need for CT scan. States in the past she developed a headache with iodine but denies any anaphylactic, rashes or respiratory reaction to iodine. at bedside states she does have anxiety therefore Ativan IM was given related to no IV access at that time. CT negative for pulmonary embolism. Radiologist impression no evidence of pulmonary embolism, no evidence of acute process. Hepatic steatosis. Patient was given a liter of IV fluids. Patient remains tachycardic and dyspneic. Hypertensive despite IV hydralazine x2. Dr Olivo at bedside to evaluate for worsening dyspnea. 1gm of Magnesium IVPB given. She will be admitted for dyspnea, lactic acidosis. Spoke with Dr. Hurtado agreeable to admission to ICU with pulmonary on consult. Requested to give 1 more liter of IV fluids, and will monitor respiratory status and consider intubation. Patient was started on BiPAP in the emergency room. Dr Olivo again at bedside to evaluate for possible intubation if no improvement on Bipap. Case discussed with Dr. Olivo Undiagnosed new problem with uncertain prognosis? @ -[No] Drug Therapy requiring intensive monitoring for toxicity (Heparin, Nitro, Insulin, Cardizem)? @ -[No] Were any procedures done? @ -[No] Diagnosis/symptom? @ -Dyspnea, hypertensive emergency, lactic acidosis, elevated d-dimer Acute, or Chronic, or Acute on Chronic? @ -Acute Uncomplicated (without systemic symptoms) or Complicated (systemic symptoms)? @ -Complicated Side effects of treatment? @ -[No] Exacerbation, Progression, or Severe Exacerbation? @ -[No] Poses a threat to life or bodily function? How? (Chest pain, [place], [place], pneumonia, PE, COPD, DKA, ARF, appy, cholecystitis, CVA, Diverticulitis, Homicidal, Suicidal, threat to staff... and all critical care pts) @ -Yes dyspnea could result in respiratory arrest and - Lab Data Result diagrams: 09/14/22 08:13 09/14/22 08:13 Lab Results 09/14/22 09/14/22 09/14/22 Range/Units 07:45 08:13 08:13 WBC 8.2 (3.8-10.6) k/uL RBC 5.09 (3.80-5.40) m/uL Hgb 15.8 (11.4-16.0) gm/dL Hct 47.7 H (34.0-46.0) % MCV 93.8 (80.0-100.0) fL MCH 31.0 (25.0-35.0) pg MCHC 33.1 (31.0-37.0) g/dL RDW 12.6 (11.5-15.5) % Plt Count 282 (150-450) k/uL MPV 8.6 Neutrophils % 82 % Lymphocytes % 10 % Monocytes % 4 % Eosinophils % 1 % Basophils % 0 % Neutrophils # 6.8 (1.3-7.7) k/uL Lymphocytes # 0.8 L (1.0-4.8) k/uL Monocytes # 0.3 (0-1.0) k/uL Eosinophils # 0.0 (0-0.7) k/uL Basophils # 0.0 (0-0.2) k/uL PT 9.9 (9.0-12.0) sec INR 0.9 (<1.2) APTT 24.3 (22.0-30.0) sec D-Dimer 0.66 H (<0.60) mg/L FEU VBG pH (7.31-7.41) VBG pCO2 (37-51) mmHg VBG HCO3 (24-28) mmol/L Sodium (137-145) mmol/L Potassium (3.5-5.1) mmol/L Chloride (98-107) mmol/L Carbon Dioxide (22-30) mmol/L Anion Gap mmol/L BUN (7-17) mg/dL Creatinine (0.52-1.04) mg/dL Est GFR (CKD-EPI)AfAm (>60 ml/min/1.73 sqM) Est GFR (CKD-EPI)NonAf (>60 ml/min/1.73 sqM) Glucose (74-99) mg/dL Lactic Ac Sepsis Rflx Plasma Lactic Acid Jose E (0.7-2.0) mmol/L Calcium (8.4-10.2) mg/dL Magnesium (1.6-2.3) mg/dL Total Bilirubin (0.2-1.3) mg/dL AST (14-36) U/L ALT (4-34) U/L Alkaline Phosphatase (38-126) U/L Troponin I (0.000-0.034) ng/mL Total Protein (6.3-8.2) g/dL Albumin (3.5-5.0) g/dL Influenza Type A (PCR) Not Detected (Not Detectd) Influenza Type B (PCR) Not Detected (Not Detectd) RSV (PCR) Not Detected (Not Detectd) SARS-CoV-2 (PCR) Not Detected (Not Detectd) 09/14/22 09/14/22 09/14/22 Range/Units 08:13 08:13 08:13 WBC (3.8-10.6) k/uL RBC (3.80-5.40) m/uL Hgb (11.4-16.0) gm/dL Hct (34.0-46.0) % MCV (80.0-100.0) fL MCH (25.0-35.0) pg MCHC (31.0-37.0) g/dL RDW (11.5-15.5) % Plt Count (150-450) k/uL MPV Neutrophils % % Lymphocytes % % Monocytes % % Eosinophils % % Basophils % % Neutrophils # (1.3-7.7) k/uL Lymphocytes # (1.0-4.8) k/uL Monocytes # (0-1.0) k/uL Eosinophils # (0-0.7) k/uL Basophils # (0-0.2) k/uL PT (9.0-12.0) sec INR (<1.2) APTT (22.0-30.0) sec D-Dimer (<0.60) mg/L FEU VBG pH (7.31-7.41) VBG pCO2 (37-51) mmHg VBG HCO3 (24-28) mmol/L Sodium 138 (137-145) mmol/L Potassium 3.5 (3.5-5.1) mmol/L Chloride 102 (98-107) mmol/L Carbon Dioxide 23 (22-30) mmol/L Anion Gap 13 mmol/L BUN 13 (7-17) mg/dL Creatinine 0.89 (0.52-1.04) mg/dL Est GFR (CKD-EPI)AfAm 81 (>60 ml/min/1.73 sqM) Est GFR (CKD-EPI)NonAf 70 (>60 ml/min/1.73 sqM) Glucose 250 H (74-99) mg/dL Lactic Ac Sepsis Rflx Plasma Lactic Acid Jose E 2.5 H* (0.7-2.0) mmol/L Calcium 9.4 (8.4-10.2) mg/dL Magnesium 1.7 (1.6-2.3) mg/dL Total Bilirubin 0.5 (0.2-1.3) mg/dL AST 85 H (14-36) U/L ALT 53 H (4-34) U/L Alkaline Phosphatase 202 H (38-126) U/L Troponin I 0.015 (0.000-0.034) ng/mL Total Protein 7.6 (6.3-8.2) g/dL Albumin 4.3 (3.5-5.0) g/dL Influenza Type A (PCR) (Not Detectd) Influenza Type B (PCR) (Not Detectd) RSV (PCR) (Not Detectd) SARS-CoV-2 (PCR) (Not Detectd) 09/14/22 09/14/22 09/14/22 Range/Units 09:11 12:30 12:30 WBC (3.8-10.6) k/uL RBC (3.80-5.40) m/uL Hgb (11.4-16.0) gm/dL Hct (34.0-46.0) % MCV (80.0-100.0) fL MCH (25.0-35.0) pg MCHC (31.0-37.0) g/dL RDW (11.5-15.5) % Plt Count (150-450) k/uL MPV Neutrophils % % Lymphocytes % % Monocytes % % Eosinophils % % Basophils % % Neutrophils # (1.3-7.7) k/uL Lymphocytes # (1.0-4.8) k/uL Monocytes # (0-1.0) k/uL Eosinophils # (0-0.7) k/uL Basophils # (0-0.2) k/uL PT (9.0-12.0) sec INR (<1.2) APTT (22.0-30.0) sec D-Dimer (<0.60) mg/L FEU VBG pH 7.22 L (7.31-7.41) VBG pCO2 49 (37-51) mmHg VBG HCO3 19 L (24-28) mmol/L Sodium (137-145) mmol/L Potassium (3.5-5.1) mmol/L Chloride (98-107) mmol/L Carbon Dioxide (22-30) mmol/L Anion Gap mmol/L BUN (7-17) mg/dL Creatinine (0.52-1.04) mg/dL Est GFR (CKD-EPI)AfAm (>60 ml/min/1.73 sqM) Est GFR (CKD-EPI)NonAf (>60 ml/min/1.73 sqM) Glucose (74-99) mg/dL Lactic Ac Sepsis Rflx Y Plasma Lactic Acid Jose E 3.4 H* (0.7-2.0) mmol/L Calcium (8.4-10.2) mg/dL Magnesium (1.6-2.3) mg/dL Total Bilirubin (0.2-1.3) mg/dL AST (14-36) U/L ALT (4-34) U/L Alkaline Phosphatase (38-126) U/L Troponin I (0.000-0.034) ng/mL Total Protein (6.3-8.2) g/dL Albumin (3.5-5.0) g/dL Influenza Type A (PCR) (Not Detectd) Influenza Type B (PCR) (Not Detectd) RSV (PCR) (Not Detectd) SARS-CoV-2 (PCR) (Not Detectd) 09/14/22 Range/Units 13:06 WBC (3.8-10.6) k/uL RBC (3.80-5.40) m/uL Hgb (11.4-16.0) gm/dL Hct (34.0-46.0) % MCV (80.0-100.0) fL MCH (25.0-35.0) pg MCHC (31.0-37.0) g/dL RDW (11.5-15.5) % Plt Count (150-450) k/uL MPV Neutrophils % % Lymphocytes % % Monocytes % % Eosinophils % % Basophils % % Neutrophils # (1.3-7.7) k/uL Lymphocytes # (1.0-4.8) k/uL Monocytes # (0-1.0) k/uL Eosinophils # (0-0.7) k/uL Basophils # (0-0.2) k/uL PT (9.0-12.0) sec INR (<1.2) APTT (22.0-30.0) sec D-Dimer (<0.60) mg/L FEU VBG pH (7.31-7.41) VBG pCO2 (37-51) mmHg VBG HCO3 (24-28) mmol/L Sodium (137-145) mmol/L Potassium (3.5-5.1) mmol/L Chloride (98-107) mmol/L Carbon Dioxide (22-30) mmol/L Anion Gap mmol/L BUN (7-17) mg/dL Creatinine (0.52-1.04) mg/dL Est GFR (CKD-EPI)AfAm (>60 ml/min/1.73 sqM) Est GFR (CKD-EPI)NonAf (>60 ml/min/1.73 sqM) Glucose (74-99) mg/dL Lactic Ac Sepsis Rflx Y Plasma Lactic Acid Jose E (0.7-2.0) mmol/L Calcium (8.4-10.2) mg/dL Magnesium (1.6-2.3) mg/dL Total Bilirubin (0.2-1.3) mg/dL AST (14-36) U/L ALT (4-34) U/L Alkaline Phosphatase (38-126) U/L Troponin I (0.000-0.034) ng/mL Total Protein (6.3-8.2) g/dL Albumin (3.5-5.0) g/dL Influenza Type A (PCR) (Not Detectd) Influenza Type B (PCR) (Not Detectd) RSV (PCR) (Not Detectd) SARS-CoV-2 (PCR) (Not Detectd) Critical Care Time Critical Care Time: Yes Total Critical Care Time: 34 Disposition Clinical Impression: Dyspnea, Elevated d-dimer, Lactic acidosis, Hypertensive emergency Disposition: ADMITTED IP TO THIS [facility] Decision Date: 09/14/22 Decision Time: 11:34
[2022-09-14] MEDS ORDERED: traMADol 50 MG TAB PO STA (07:47)
[2022-09-14] MEDS ORDERED: ALBUTEROL HFA INHALER INHALATION STA (07:48)
[2022-09-14] MEDS ORDERED: SODIUM CHLORIDE 0.9% 500 ML 500 ML IV STA (08:03)
--- NOTE | 2022-09-14 08:20 | XR ---
EXAMINATION TYPE: XR chest 2V DATE OF EXAM: 09/14/2022 COMPARISON: None HISTORY: 62-year-old female with cough, fever, bronchitis TECHNIQUE: PA and lateral views FINDINGS: Heart normal size. Median sternotomy wires and postoperative clips in the mediastinum. Interstitial p rominence in peribronchial cuffing is present. There is some mild patchy density at the right base. L ap band device. IMPRESSION: 1. Peribronchial cuffing suggesting bronchitis or asthma. 2. Some patchy right basilar atelectasis versus developing infiltrate/pneumonia.
[2022-09-14 08:52] LABS: Basophils % (A) 0 %; Eosinophils % (A) 1 %; HCT 47.7 % (34.0-46.0); HGB 15.8 gm/dL (11.4-16.0); Lymphocytes # (A) 0.8 k/uL (1.0-4.8); Lymphocytes % (A) 10 %; MCHC 33.1 g/dL (31.0-37.0); MCV 93.8 fL (80.0-100.0); Mean Platelet Volume 8.6; Monocytes # (A) 0.3 k/uL (0-1.0); Monocytes % (A) 4 %; Neutrophils # (A) 6.8 k/uL (1.3-7.7); Neutrophils % (A) 82 %; Platelet Count 282 k/uL (150-450); RBC 5.09 m/uL (3.80-5.40); RDW 12.6 % (11.5-15.5); WBC 8.2 k/uL (3.8-10.6)
[2022-09-14] MEDS ORDERED: hydrALAZINE HCL 20 MG/ML 1 ML VIAL IVP STA ×2 (08:52→11:26)
[2022-09-14 09:05] LABS: INR 0.9 (<1.2); Partial Thromboplastin Time 24.3 sec (22.0-30.0); Prothrombin Time 9.9 sec (9.0-12.0)
[2022-09-14] MEDS ORDERED: IPRATROPIUM-ALBUTEROL 3 ML NEB INHALATION STA ×2 (09:07→12:09)
[2022-09-14] MEDS ORDERED: methylPREDNISolone SOD SUCCI 125 MG/2 ML VIAL IV STA (09:07)
[2022-09-14 09:09] LABS: ALT 53 U/L (4-34); AST 85 U/L (14-36); African American GFR (CKD) 81 (>60 ml/min/1.73 sqM); Albumin 4.3 g/dL (3.5-5.0); Alkaline Phosphatase 202 U/L (38-126); Anion Gap 13 mmol/L; Blood Urea Nitrogen 13 mg/dL (7-17); Calcium 9.4 mg/dL (8.4-10.2); Carbon Dioxide 23 mmol/L (22-30); Chloride 102 mmol/L (98-107); Glucose 250 mg/dL (74-99); Magnesium 1.7 mg/dL (1.6-2.3); Non-African American GFR(CKD) 70 (>60 ml/min/1.73 sqM); Potassium 3.5 mmol/L (3.5-5.1); Sodium 138 mmol/L (137-145); Total Bilirubin 0.5 mg/dL (0.2-1.3); Total Protein 7.6 g/dL (6.3-8.2)
[2022-09-14] MEDS ORDERED: FAMOTIDINE 20 MG/2 ML VIAL IV STA (09:14)
[2022-09-14] MEDS ORDERED: diphenhydrAMINE 50 MG/ML 1 ML VIAL IVP STA (09:14)
[2022-09-14] MEDS ORDERED: LORazepam 2 MG/ML INJ IM STA (09:39)
[2022-09-14] MEDS ORDERED: SODIUM CHLORIDE 0.9% 500 ML 500 ML IV ONE (09:57)
[2022-09-14] MEDS ORDERED: SODIUM CHLORIDE 0.9% 1,000 ML IV SCH (10:00)
--- NOTE | 2022-09-14 11:07 | CT ---
EXAMINATION TYPE: CT angio chest CT DLP: 255.4 mGycm, Automated exposure control for dose reduction was used. DATE OF EXAM: 09/14/2022 10:51 AM COMPARISON: Chest radiograph from same day. CLINICAL INDICATION:Female, 62 years old with history of dyspnea with elevated d dimer; Dyspnea with elevated dimer TECHNIQUE/CONTRAST: CTA scan of the thorax is performed with IV Contrast, patient injected with 100 mL of Isovue 370, MIP images are created and reviewed these are created on a separate workstation.. FINDINGS: Pulmonary Artery: There is no evidence for a filling defect within the pulmonary vasculature to sugge st acute pulmonary embolism. The pulmonary artery is of normal size. Lungs/Pleura: Centrilobular emphysema changes. Streaky atelectasis/scarring in the right middle lobe. /Right upper lobe. No evidence of focal consolidation, pleural effusion or pneumothorax. Airway: Large airways are patent. Heart: Heart is within normal limits for size. Arthrosis course of the arterial vasculature. Post CAB G changes. Vasculature: No evidence of aortic aneurysm. Mediastinum: No gross evidence of adenopathy. Musculoskeletal: No acute osseous abnormalities Soft Tissues: Unremarkable. Lower neck: No significant findings. Upper Abdomen: Gastric lap band changes. Hardware appears intact. The band has an appropriate angle. Diffuse low attenuation to the liver. The gallbladder surgically absent. IMPRESSION: 1. No evidence of pulmonary embolism. 2. No evidence for acute process. 3. Hepatic steatosis.
[2022-09-14] MEDS ORDERED: NALOXONE 0.4 MG/ML 1 ML VIAL IV PRN (11:34)
[2022-09-14] MEDS ORDERED: SODIUM CHLORIDE 0.9% 1,000 ML IV ONE (11:34)
[2022-09-14] MEDS ORDERED: ACETAMINOPHEN TAB 325 MG TAB PO PRN (11:34)
[2022-09-14] MEDS ORDERED: BENZONATATE 100 MG CAP PO PRN (11:38)
[2022-09-14] MEDS ORDERED: guaiFENesin-Coden 100-10MG/5ML 10 ML CUP PO PRN (11:38)
[2022-09-14] MEDS: methylPREDNISolone SOD SUCCI 125 MG/2 ML VIAL IV SCH ×3 (12:13→18:43)
[2022-09-14] MEDS: DOXYCYCLINE 100 MG CAP PO SCH ×2 (12:14→12:19)
[2022-09-14] MEDS ORDERED: MAGNESIUM SULFATE-D5W PMX 1 GM in DEXTROSE/WATER 1 100ML.BAG IVPB ONE (12:14)
[2022-09-14] MEDS: SODIUM CHLORIDE 0.9% 1,000 ML IV SCH ×2 (12:14→20:37)
[2022-09-14] MEDS ORDERED: LORazepam 2 MG/ML INJ IV STA (12:46)
[2022-09-14 12:52] LABS: VBG PH 7.22 (7.31-7.41)
[2022-09-14] MEDS ORDERED: NITROGLYCERIN-D5W PMX 50 MG in DEXTROSE/WATER 1 250ML.BAG IV ONE (13:11)
[2022-09-14 14:06] LABS: ABG Base Excess -7.8 mmol/L; ABG HCO3 20 mmol/L (21-25); ABG Oxygen Saturation 75.8 % (94-97); ABG PCO2 46 mmHg (35-45); ABG PH 7.24 (7.35-7.45); ABG TCO2 21 mmol/L (19-24); Allen Test Performed? Yes
[2022-09-14 14:08] LABS: ABG PO2 45 mmHg (83-108)
[2022-09-14] MEDS: AZITHROMYCIN 500 MG in SODIUM CHLORIDE 0.9% 250 ML IVPB SCH (14:22)
[2022-09-14] MEDS: IPRATROPIUM-ALBUTEROL 3 ML NEB INHALATION SCH ×2 (15:48→20:17)
[2022-09-14] MEDS: CLOPIDOGREL 75 MG TAB PO SCH (16:01)
[2022-09-14] MEDS: GABAPENTIN 100 MG CAP PO SCH ×2 (16:01→21:17)
[2022-09-14] MEDS: LEVOTHYROXINE 75 MCG TAB PO SCH (16:01)
--- NOTE | 2022-09-14 16:10 | P.CNPUL ---
History of Present Illness Consult date: 09/14/22 Reason for consult: dyspnea, COPD History of present illness: 62-year-old female patient, presented to the emergency department because of progressive dyspnea for approximately a week. She has been seen in our office will worsening shortness of breath and she was diagnosed having an acute COPD exacerbation/tracheal bronchitis and the patient was given a course of doxycycline and a prednisone burst taper. Nevertheless, her condition decompe nsated and the patient ended up coming into the emergency department with increase shortness of breath. The patient was in significant respiratory distress. She was immediately placed on a BiPAP at a pressure of 12/5 cm of water. Initial blood gases were poor and the patient a pH of 7.24 with a pCO2 of 46. This could have been potentially intravenous sample also. Nevertheless, her condition progressively improved and the patient became less labored while on the BiPAP. At this point in time, she is communicating. She is alert. She feels that her breathing is improved. She is still actively bronchospastic and wheezy. Lactic acid is being monitored and the level was high at 3.4 and the patient was given a total of 2 L of IV fluids. As of the blood work is within normal limits. CBC within normal limits. The d-dimer was 0.66. CT angiogram showed no acute abnormalities. No evidence of any pulmonary embolism. No evidence of any pneumonias. The patient has a negative Covid 19 influenza and RSV screening test. She is known to have multiple medical problems. She is known to have coronary artery disease and she has undergone single-vessel bypass surgery, she has fibromyalgia, hyperlipidemia, Sjogren's disease, hyperlipidemia, hypothyroidism, and she has a previous history of smoking and she is not actively smoking at this point in time. She also has previous history of seizure disorder. She has undergone previous vascular intervention angioplasty and stenting to the SFA as the patient is also known to have peripheral vascular disease and claudication. Review of Systems Constitutional: Reports fatigue, Reports weakness Eyes: denies as per HPI, denies blurred vision, denies bulging eye, denies decre ased vision, denies diplopia, denies discharge, denies dry eye, denies irritation, denies itching, denies pain, denies photophobia, denies loss of peripheral vision, denies loss of vision, denies tunnel vision/blind spots Ears: deny: decreased hearing, ear discharge, earache, tinnitus Ears, nose, mouth and throat: Reports as per HPI Breasts: absent: as per HPI, change in shape, gynecomastia, masses, nipple discharge, pain, skin changes, swelling Cardiovascular: Reports as per HPI, Reports decreased exercise tolerance, Reports dyspnea on exertion, Reports shortness of breath Respiratory: Reports cough, Reports dyspnea, Reports wheezing Gastrointestinal: Reports as per HPI Genitourinary: Reports as per HPI Menstruation: Reports as per HPI Musculoskeletal: Reports as per HPI Musculoskeletal: absent: ankle pain, ankle stiffness, ankle swelling, as per HPI, elbow pain, elbow stiffness, elbow swelling, foot pain, foot stiffness, foot swelling, hand pain, hand stiffness, hand swelling, hip pain, hip stiffness, hip swelling, knee pain, knee stiffness, knee swelling, shoulder pain, shoulder stiffness, shoulder swelling, wrist pain, wrist stiffness, wrist swelling Integumentary: Reports as per HPI Neurological: Reports as per HPI Psychiatric: Reports as per HPI Endocrine: Reports as per HPI Hematologic/Lymphatic: Reports as per HPI Allergic/Immunologic: Reports as per HPI Past Medical History Past Medical History: Coronary Artery Disease (CAD), COPD, Fibromyalgia, Hyperlipidemia, Hypertension, Myocardial Infarction ([place]), Rheumatoid Arthritis (RA), Seizure Disorder, Thyroid Disorder, Vascular Disorder Additional Past Medical History / Comment(s): Migraines, 1 seizure in 2012, sarcoidosis, raynauds, LLE edema, PAD Last Myocardial Infarction Date:: 04/2012 History of Any Multi-Drug Resistant Organisms: None Reported Past Surgical History: Appendectomy, Bariatric Surgery, Cholecystectomy, Coronary Bypass/CABG, Heart Catheterization With Stent, Hysterectomy Additional Past Surgical History / Comment(s): 09/30/20 BILATERAL ARTERIOGRAM AND RUNOFF, partial hysterectomy, right leg angioplasty with stenting October 14, carpal tunnel surgery bilateral wrists, CABG 2012 1 vessel Past Anesthesia/Blood Transfusion Reactions: No Reported Reaction Additional Past Anesthesia/Blood Transfusion Reaction / Comment(s): woke up during heart cath Date of Last Stent Placement:: 04/2011 Past Psychological History: Anxiety Smoking Status: Current some day smoker Past Alcohol Use History: None Reported, Rare Additional Past Alcohol Use History / Comment(s): Pt smokes about 1 PPD, has started and stopped smoking multiple times in her life. Past Drug Use History: Marijuana Additional Drug Use History / Comment(s): Marijuana use once a week - Past Family History Mother Family Medical History: Deep Vein Thrombosis (DVT) Additional Family Medical History / Comment(s): Lupus Father Family Medical History: Myocardial Infarction ([place]) Additional Family Medical History / Comment(s): from [place] Medications and Allergies Home Medications Medication Instructions Recorded Confirmed Type Aspirin 325 mg PO HS 07/01/13 09/14/22 History Lovastatin [Mevacor] 40 mg PO HS 07/01/13 09/14/22 History Sucralfate [Carafate] 1 tab PO BID 07/01/13 09/14/22 History Topiramate [Topamax] 50 mg PO BID 07/01/13 09/14/22 History traZODone HCL [Desyrel] 100 mg PO HS 07/01/13 09/14/22 History Biotin 5 mg PO DAILY 09/27/20 09/14/22 History Ezetimibe [Zetia] 10 mg PO HS 09/27/20 09/14/22 History Furosemide [Lasix] 20 mg PO QAM 09/27/20 09/14/22 History Magnesium 200 mg PO DAILY 09/27/20 09/14/22 History Multivitamins, Thera [Multivitamin 1 tab PO DAILY 09/27/20 09/14/22 History (formulary)] diphenhydrAMINE [Benadryl] 25 mg PO HS 09/27/20 09/14/22 History Clopidogrel [Plavix] 75 mg PO DAILY #90 tab 10/14/20 09/14/22 Rx Gabapentin [Neurontin] 200 mg PO TID 06/09/22 09/14/22 History traMADol HCl [Ultram] 50 mg PO TID PRN 06/09/22 09/14/22 History Cetirizine HCl [Zyrtec] 10 mg PO DAILY 09/14/22 09/14/22 History Cholecalciferol [Vitamin D3 (25 50 mcg PO DAILY 09/14/22 09/14/22 History Mcg = 1000 Iu)] Levothyroxine Sodium [Synthroid] 75 mcg PO DAILY 09/14/22 09/14/22 History Venlafaxine HCl ER [Effexor Xr] 75 mg PO BID 09/14/22 09/14/22 History Allergies Allergy/AdvReac Type Severity Reaction Status Date / Time iodine AdvReac very hot Verified 09/14/22 08:50 feeling with IV contrast Epotvrr-VOU-LsL Reductase AdvReac muscle Verified 09/14/22 08:50 Inhibitor pain, [Zqdwdew-Mnk-Sgx Reductase fatigue Inhibitor] Physical Exam Vitals: Vital Signs Temp Pulse Resp BP Pulse Ox FiO2 09/14/22 15:06 111 H 20 119/90 99 09/14/22 13:39 114 H 26 H 141/85 100 09/14/22 13:35 40 09/14/22 13:00 131 H 34 H 188/133 99 09/14/22 12:24 133 H 09/14/22 12:12 129 H 09/14/22 12:11 34 H 09/14/22 12:03 96.8 F L 124 H 28 H 157/104 99 09/14/22 12:00 122 H 28 H 157/104 99 09/14/22 11:51 134 H 20 204/116 99 09/14/22 11:19 142 H 09/14/22 11:08 128 H 09/14/22 11:00 120 H 28 H 154/110 100 09/14/22 08:48 97.9 F 102 H 22 196/113 96 09/14/22 07:48 20 09/14/22 07:32 97.9 F 91 20 199/112 95 Intake and Output 09/14/22 09/14/22 09/14/22 06:59 14:59 22:59 Other: Weight 54.885 kg The patient is still having some labored breathing on a BiPAP at pressure of 12/5 cm of water and FiO2 is being titrated to maintain saturation above 90%. She is not using any form of the bleeding at this point in time. Head exam was generally normal. There was no scleral icterus or corneal arcus. Mucous membranes were moist. Neck was supple and without jugular venous distension, thyromegaly, or carotid bruits. Carotids were easily palpable bilaterally. There was no adenopathy. Lungs although the medicine the patient has diffuse and scattered expiratory wheezes throughout the lungs bilaterally. The patient has also prolongation of the exhalation phase of breathing. Cardiac exam revealed the PMI to be normally situated and sized. The rhythm was regular and no extrasystoles were noted during several minutes of auscultation. The first and second heart sounds were normal and physiologic splitting of the second heart sound was noted. There were no murmurs, rubs, clicks, or gallops. The patient has a thoracotomy scar over the anterior chest Abdominal exam revealed normal bowel sounds. The abdomen was soft, non-tender, and without masses, organomegaly, or appreciable enlargement of the abdominal aorta. Examination of the extremities revealed easily palpable radial, femoral and pedal pulses. There was no cyanosis, clubbing or edema. Examination of the skin revealed no evidence of significant rashes, suspicious appearing nevi or other concerning lesions. Neurologically, the patient is awake and alert and the patient does not have any focal neurological deficit. Cranial nerves are essentially intact. Results - Laboratory Findings CBC and BMP: 09/14/22 08:13 09/14/22 08:13 ABG ABG pH 7.24 (7.35-7.45) L 09/14/22 14:05 ABG pCO2 46 mmHg (35-45) H 09/14/22 14:05 ABG pO2 45 mmHg (83-108) L* 09/14/22 14:05 ABG O2 Saturation 75.8 % (94-97) L 09/14/22 14:05 PT/INR, D-dimer PT 9.9 sec (9.0-12.0) 09/14/22 08:13 INR 0.9 (<1.2) 09/14/22 08:13 D-Dimer 0.66 mg/L FEU (<0.60) H 09/14/22 08:13 Abnormal lab findings: Abnormal Labs 09/14/22 09/14/22 09/14/22 08:13 08:13 08:13 Hct 47.7 H Lymphocytes # 0.8 L D-Dimer 0.66 H ABG pH ABG pCO2 ABG pO2 ABG HCO3 ABG O2 Saturation VBG pH VBG HCO3 Glucose 250 H Plasma Lactic Acid Jose E AST 85 H ALT 53 H Alkaline Phosphatase 202 H 09/14/22 09/14/22 09/14/22 08:13 12:30 12:30 Hct Lymphocytes # D-Dimer ABG pH ABG pCO2 ABG pO2 ABG HCO3 ABG O2 Saturation VBG pH 7.22 L VBG HCO3 19 L Glucose Plasma Lactic Acid Jose E 2.5 H* 3.4 H* AST ALT Alkaline Phosphatase 09/14/22 14:05 Hct Lymphocytes # D-Dimer ABG pH 7.24 L ABG pCO2 46 H ABG pO2 45 L* ABG HCO3 20 L ABG O2 Saturation 75.8 L VBG pH VBG HCO3 Glucose Plasma Lactic Acid Jose E AST ALT Alkaline Phosphatase - Diagnostic Findings Chest x-ray: image reviewed CT scan - chest: image reviewed Assessment and Plan Plan: Acute exacerbation of COPD, failed outpatient treatment as the patient was given doxycycline and prednisone burst taper on outpatient basis. The patient has symptoms of acute bronchitis she noticed of pneumonia based on the CT antigram of the chest. No evidence of any pulmonary embolism. Covid 19 testing and the rest of the viral screening was negative. Acute hypoxic/hypercapnic respiratory failure secondary to above Acute lactic acidosis secondary to above and the patient has increase work of breathing, given IV fluids and the lactic acid being monitored Shortness of breath secondary to above Coronary artery disease with previous bypass surgery and the patient has undergone a single vessel bypass surgery 2012 with subsequent chronic catheterization stenting Peripheral vascular disease with previous intervention enteroplasty and stenting of the SFA Hypertension Hyperlipidemia Previous history of smoking Fibromyalgia Seizure disorder Hypothyroidism History of migraines History of Sjogren's disease Plan Presentation is typical for an acute COPD exacerbation the patient is going to be treated with a combination of bronchodilators. The patient placed on DuoNeb nebs, Perforomist and Pulmicort neb blotchiness twice a day Continue IV Solu-Medrol to 60 mg every 6 hours Continue empiric antibiotic coverage with Rocephin and Zithromax Continue BiPAP therapy Monitor blood gases Monitor lactic acid level IV fluids Resume all medications Lovenox for prophylaxis No need for intubation and this point in time Close monitoring in the intensive care unit.
--- NOTE | 2022-09-14 16:21 | P.HPIM ---
History of Present Illness H&P Date: 09/14/22 History of presenting illness * 62-year-old lady with past medical history of peripheral arterial disease, COPD, hypertension, hyperlipidemia, recent intervention for critical limb ischemia of left lower extremity with balloon angioplasty of SFA in June 2022 present to the emergency department with complaints of not feeling well for 1 week. Patient had followed up with pulmonary medicine outpatient and was prescribed steroids and antibiotic. Patient says she has been having shortness of breath and generalized fatigue and malaise chest congestion and perfuse diarrhea. Patient also had episode of vomiting. * Time of presentation in ER patient was noted to be in acute distress with significant elevation of blood pressure. Patient was noted to be tachycardic and hypoxic. * Blood was obtained in ER included elevated d-dimer, CT chest was obtained which was negative for pulmonary embolism. Basic metabolic panel showed normal sodium, potassium, normal creatinine, lactic acid of 2.5 follow-up lactate of 3.4 patient was resuscitated with fluid. Patient tested negative for Covid and influenza * Secondary to respiratory distress and significant anxiety patient was given 1 dose of Ativan 1 mg IV push. After which patient was comfortable. Secondary to worsening respiratory status was decided patient will be admitted to ICU * Status was confirmed patient full code REVIEW OF SYSTEMS: Limited review of systems secondary to patient being critically ill does complain of cough, shortness of breath, respiratory distress. Denies chest pain, denies lower extremity pain denies abdominal pain nausea vomiting or diarrhea PHYSICAL EXAMINATION: GENERAL: The patient is alert and oriented x3, at the time of admission patient was in acute distress on high flow oxygen through nonrebreather, HEENT: Pupils are round and equally reacting to light. EOMI. CARDIOVASCULAR: S1 and S2 present. No murmurs, rubs, or gallops. PULMONARY: Decreased breath sounds bilaterally, use of accessory muscle ABDOMEN: Soft, nontender, nondistended, normoactive bowel sounds. No palpable organomegaly. MUSCULOSKELETAL: No joint swelling or deformity. EXTREMITIES: No cyanosis, clubbing, or pedal edema. NEUROLOGICAL: Gross neurological examination did not reveal any focal deficits. Past Medical History Past Medical History: Chest Pain / Angina, Fibromyalgia, Hyperlipidemia, Hypertension, Myocardial Infarction ([place]), Rheumatoid Arthritis ([place]), Seizure Disorder, Thyroid Disorder Additional Past Medical History / Comment(s): Migraines, 1 seizure in 2012, sarcoidosis, raynauds, LLE edema Last Myocardial Infarction Date:: 04/2012 History of Any Multi-Drug Resistant Organisms: None Reported Past Surgical History: Appendectomy, Bariatric Surgery, Cholecystectomy, Coronary Bypass/CABG, Heart Catheterization With Stent, Hysterectomy Additional Past Surgical History / Comment(s): 09/30/20 BILATERAL ARTERIOGRAM AND RUNOFF, partial hysterectomy, right leg angioplasty with stenting October 2021, carpal tunnel surgery bilateral wrists, CABG 2012 1 vessel Past Anesthesia/Blood Transfusion Reactions: No Reported Reaction Additional Past Anesthesia/Blood Transfusion Reaction / Comment(s): woke up during heart cath Date of Last Stent Placement:: 04/2011 Past Psychological History: Anxiety Smoking Status: Current some day smoker Past Alcohol Use History: None Reported, Rare Additional Past Alcohol Use History / Comment(s): Pt smokes about 1 PPD, has started and stopped smoking multiple times in her life. Past Drug Use History: Marijuana Additional Drug Use History / Comment(s): Marijuana use once a week - Past Family History Mother Family Medical History: Deep Vein Thrombosis (DVT) Additional Family Medical History / Comment(s): Lupus Father Family Medical History: Myocardial Infarction ([place]) Additional Family Medical History / Comment(s): from [place] Medications and Allergies Home Medications Medication Instructions Recorded Confirmed Type Aspirin 325 mg PO HS 07/01/13 09/14/22 History Lovastatin [Mevacor] 40 mg PO HS 07/01/13 09/14/22 History Sucralfate [Carafate] 1 tab PO BID 07/01/13 09/14/22 History Topiramate [Topamax] 50 mg PO BID 07/01/13 09/14/22 History traZODone HCL [Desyrel] 100 mg PO HS 07/01/13 09/14/22 History Biotin 5 mg PO DAILY 09/27/20 09/14/22 History Ezetimibe [Zetia] 10 mg PO HS 09/27/20 09/14/22 History Furosemide [Lasix] 20 mg PO QA 09/27/20 09/14/22 History Magnesium 200 mg PO DAILY 09/27/20 09/14/22 History Multivitamins, Thera [Multivitamin 1 tab PO DAILY 09/27/20 09/14/22 History (formulary)] diphenhydrAMINE [Benadryl] 25 mg PO HS 09/27/20 09/14/22 History Clopidogrel [Plavix] 75 mg PO DAILY #90 tab 10/14/20 09/14/22 Rx Gabapentin [Neurontin] 200 mg PO TID 06/09/22 09/14/22 History traMADol HCl [Ultram] 50 mg PO TID PRN 06/09/22 09/14/22 History Cetirizine HCl [Zyrtec] 10 mg PO DAILY 09/14/22 09/14/22 History Cholecalciferol [Vitamin D3 (25 50 mcg PO DAILY 09/14/22 09/14/22 History Mcg = 1000 Iu)] Levothyroxine Sodium [Synthroid] 75 mcg PO DAILY 09/14/22 09/14/22 History Venlafaxine HCl ER [Effexor Xr] 75 mg PO BID 09/14/22 09/14/22 History Allergies Allergy/AdvReac Type Severity Reaction Status Date / Time iodine AdvReac very hot Verified 09/14/22 08:50 feeling with IV contrast Ptjtcah-PET-OaQ Reductase AdvReac muscle Verified 09/14/22 08:50 Inhibitor pain, [Kowzinb-Qdx-Wyq Reductase fatigue Inhibitor] Physical Exam Vitals: Vital Signs Temp Pulse Resp BP Pulse Ox FiO2 09/14/22 15:46 97.0 F L 125 H 18 128/104 98 09/14/22 15:43 40 09/14/22 15:06 111 H 20 119/90 99 09/14/22 13:39 114 H 26 H 141/85 100 09/14/22 13:35 40 09/14/22 13:00 131 H 34 H 188/133 99 09/14/22 12:24 133 H 09/14/22 12:12 129 H 09/14/22 12:11 34 H 09/14/22 12:03 96.8 F L 124 H 28 H 157/104 99 09/14/22 12:00 122 H 28 H 157/104 99 09/14/22 11:51 134 H 20 204/116 99 09/14/22 11:19 142 H 09/14/22 11:08 128 H 09/14/22 11:00 120 H 28 H 154/110 100 09/14/22 08:48 97.9 F 102 H 22 196/113 96 09/14/22 07:48 20 09/14/22 07:32 97.9 F 91 20 199/112 95 Intake and Output 09/14/22 09/14/22 09/14/22 06:59 14:59 22:59 Other: Weight 54.885 kg Results CBC & Chem 7: 09/14/22 08:13 09/14/22 08:13 Labs: Abnormal Lab Results - Last 24 Hours (Table) 09/14/22 09/14/22 09/14/22 Range/Units 08:13 08:13 08:13 Hct 47.7 H (34.0-46.0) % Lymphocytes # 0.8 L (1.0-4.8) k/uL D-Dimer 0.66 H (<0.60) mg/L FEU ABG pH (7.35-7.45) ABG pCO2 (35-45) mmHg ABG pO2 (83-108) mmHg ABG HCO3 (21-25) mmol/L ABG O2 Saturation (94-97) % VBG pH (7.31-7.41) VBG HCO3 (24-28) mmol/L Glucose 250 H (74-99) mg/dL Plasma Lactic Acid Jose E (0.7-2.0) mmol/L AST 85 H (14-36) U/L ALT 53 H (4-34) U/L Alkaline Phosphatase 202 H (38-126) U/L 09/14/22 09/14/22 09/14/22 Range/Units 08:13 12:30 12:30 Hct (34.0-46.0) % Lymphocytes # (1.0-4.8) k/uL D-Dimer (<0.60) mg/L FEU ABG pH (7.35-7.45) ABG pCO2 (35-45) mmHg ABG pO2 (83-108) mmHg ABG HCO3 (21-25) mmol/L ABG O2 Saturation (94-97) % VBG pH 7.22 L (7.31-7.41) VBG HCO3 19 L (24-28) mmol/L Glucose (74-99) mg/dL Plasma Lactic Acid Jose E 2.5 H* 3.4 H* (0.7-2.0) mmol/L AST (14-36) U/L ALT (4-34) U/L Alkaline Phosphatase (38-126) U/L 09/14/22 Range/Units 14:05 Hct (34.0-46.0) % Lymphocytes # (1.0-4.8) k/uL D-Dimer (<0.60) mg/L FEU ABG pH 7.24 L (7.35-7.45) ABG pCO2 46 H (35-45) mmHg ABG pO2 45 L* (83-108) mmHg ABG HCO3 20 L (21-25) mmol/L ABG O2 Saturation 75.8 L (94-97) % VBG pH (7.31-7.41) VBG HCO3 (24-28) mmol/L Glucose (74-99) mg/dL Plasma Lactic Acid Jose E (0.7-2.0) mmol/L AST (14-36) U/L ALT (4-34) U/L Alkaline Phosphatase (38-126) U/L Assessment and Plan Assessment: Assessment and plan * Acute hypoxic hypercapnic respiratory failure acute tracheobronchitis * Acute metabolic encephalopathy * Peripheral arterial disease recent angioplasty of left SFA * Sepsis * Coronary artery disease * Hypertensive urgency * Elevated troponin secondary to type MD * In regards to acute hypoxic hypercapnic respiratory failure, pulmonary medicine consulted. Continue patient on Rocephin and azithromycin * Continue patient on IV Solu-Medrol, breathing treatments ordered, continue patient on Mucinex, started on noninvasive ventilation * In regards to peripheral arterial disease continue aspirin, statin, Plavix * In regards to sepsis, follow-up lactate levels ordered continue patient on IV antibiotics blood cultures ordered * Regards to elevated troponin, cardiology consulted will follow-up on echocardiogram * CODE STATUS is full code
[2022-09-14 20:17] LABS: Glucose,Whole Blood 209 mg/dL (70-110)
[2022-09-14] MEDS: BUDESONIDE 0.5 MG/2 ML NEBU INHALATION SCH (20:17)
[2022-09-14] MEDS: FORMOTEROL FUMARATE 20 MCG/2 ML NEBU INHALATION SCH (20:17)
[2022-09-14] MEDS ORDERED: cloNIDine HCL 0.2 MG TAB PO STA (20:32)
[2022-09-14] MEDS: DEXMEDETOMIDINE/0.9% NACL(PMX) 400 MCG in EMPTY BAG 1 BAG IV SCH (21:10)
[2022-09-14] MEDS: TOPIRAMATE 25 MG TAB PO SCH (21:16)
[2022-09-14] MEDS: guaiFENesin 600 MG TABLET.ER PO SCH (21:17)
[2022-09-14] MEDS: VENLAFAXINE HCL ER 75 MG CAP PO SCH (21:17)
[2022-09-14] MEDS: ASPIRIN 325 MG TAB PO SCH (21:17)
[2022-09-14] MEDS: traZODone HCL 100 MG TAB PO SCH (21:17)
[2022-09-14] MEDS: EZETIMIBE 10 MG TAB PO SCH (21:17)
[2022-09-14] MEDS: SUCRALFATE 1 GM TAB PO SCH (21:19)
[2022-09-15] MEDS: methylPREDNISolone SOD SUCCI 125 MG/2 ML VIAL IV SCH ×5 (00:15→23:56)
[2022-09-15] MEDS ORDERED: Potassium Replacement Protocol 1 EACH MISC MISCELLANE PRN (02:37)
[2022-09-15] MEDS: POTASSIUM CHLORIDE ER 20 MEQ TAB.ER PO SCH ×2 (02:57→06:24)
[2022-09-15 04:17] LABS: HCT 32.9 % (34.0-46.0); MCH 32.5 pg (25.0-35.0); MCHC 34.7 g/dL (31.0-37.0); MCV 93.9 fL (80.0-100.0); Mean Platelet Volume 8.1; Platelet Count 228 k/uL (150-450); RBC 3.51 m/uL (3.80-5.40); RDW 12.6 % (11.5-15.5); WBC 6.6 k/uL (3.8-10.6)
[2022-09-15 04:18] LABS: HGB 11.4 gm/dL (11.4-16.0)
[2022-09-15 04:25] LABS: African American GFR (CKD) 83 (>60 ml/min/1.73 sqM); Anion Gap 7 mmol/L; Blood Urea Nitrogen 16 mg/dL (7-17); C Reactive Protein 4.2 mg/dL (<1.0); Calcium 7.8 mg/dL (8.4-10.2); Carbon Dioxide 22 mmol/L (22-30); Chloride 106 mmol/L (98-107); Glucose 154 mg/dL (74-99); Non-African American GFR(CKD) 72 (>60 ml/min/1.73 sqM); Potassium 3.2 mmol/L (3.5-5.1); Sodium 135 mmol/L (137-145)
[2022-09-15] MEDS: LEVOTHYROXINE 75 MCG TAB PO SCH (06:24)
[2022-09-15] MEDS ORDERED: POTASSIUM CHLORIDE 20 MEQ in WATER FOR INJECTION 1 100ML.BAG IVPB STA (08:50)
[2022-09-15] MEDS: FORMOTEROL FUMARATE 20 MCG/2 ML NEBU INHALATION SCH ×2 (09:07→21:15)
[2022-09-15] MEDS: BUDESONIDE 0.5 MG/2 ML NEBU INHALATION SCH ×2 (09:07→21:15)
[2022-09-15] MEDS: IPRATROPIUM-ALBUTEROL 3 ML NEB INHALATION SCH ×4 (09:07→21:15)
--- NOTE | 2022-09-15 09:34 | P.PN ---
Subjective Progress Note Date: 09/15/22 62-year-old female patient, presented to the emergency department because of progressive dyspnea for approximately a week. She has been seen in our office will worsening shortness of breath and she was diagnosed having an acute COPD exacerbation/tracheal bronchitis and the patient was given a course of doxycycline and a prednisone burst taper. Nevertheless, her condition decompensated and the patient ended up coming into the emergency department with increase shortness of breath. The patient was in significant respiratory distress. She was immediately placed on a BiPAP at a pressure of 12/5 cm of water. Initial blood gases were poor and the patient a pH of 7.24 with a pCO2 of 46. This could have been potentially intravenous sample also. Nevertheless, her condition progressively improved and the patient became less labored while on the BiPAP. At this point in time, she is communicating. She is alert. She feels that her breathing is improved. She is still actively bronchospastic and wheezy. Lactic acid is being monitored and the level was high at 3.4 and the patient was given a total of 2 L of IV fluids. As of the blood work is within normal limits. CBC within normal limits. The d-dimer was 0.66. CT angiogram showed no acute abnormalities. No evidence of any pulmonary embolism. No evidence of any pneumonias. The patient has a negative Covid 19 influenza and RSV screening test. She is known to have multiple medical problems. She is known to have coronary artery disease and she has undergone single-vessel bypass surgery, she has fibromyalgia, hyperlipidemia, Sjogren's disease, hyperlipidemia, hypothyroidism, and she has a previous history of smoking and she is not actively smoking at this point in time. She also has previous history of seizure disorder. She has undergone previous vascular intervention angioplasty and stenting to the SFA as the patient is also known to have peripheral vascular disease and claudication. 09/15/2022, I'm seeing the patient for a follow-up. The patient was seen in the emergency department the patient got moved to the intensive care unit. Overnight, the patient was kept on a BiPAP. She was given brief episodes of the BiPAP yet she still very much BiPAP dependent as the patient is still bronchospastic and wheezy and she continues to have limited air entry bilaterally. She is on a BiPAP at a pressure of 12/5. She generating a tidal volume of 400 with a rate of 25 and a minute ventilation of 10. She is on FiO2 of 40%. Overnight, she became anxious and hypotensive. I started on Precedex which is currently running at 0.3 mcg/kg/h. This has calmed her significantly and made her more synchronous with the BiPAP machine. She was able to get a IV line in the left upper extremity. WBC count today's at 6.6 with a hemoglobin of 11.4. BUN is at 16 with a creatinine of 0.8 and a sodium level is at 135. Lactic acid level dropped down to 1.6. Troponin was 0.01, 0.08 and 0.09 respectively. The patient is awake and alert and communicating. She is on DuoNeb updrafts. She is on Pulmicort and Perforomist and blood treatments. She remains on IV Solu-Medrol. Outpatient medications have been resumed. Objective - Vital Signs Vital signs: Vital Signs Temp 97.6 F 09/15/22 08:15 Pulse 100 09/15/22 09:07 Resp 24 09/15/22 09:07 BP 129/77 09/15/22 08:15 Pulse Ox 99 09/15/22 08:15 FiO2 40 09/15/22 09:07 Intake & Output 09/14/22 09/15/22 09/15/22 18:59 06:59 18:59 Intake Total 220 70.870 Output Total 225 Balance -5 70.870 Weight 54.885 kg 56.4 kg Intake: IV 220 40 IV Fluid 220 40 Intake, IV Titration 30.870 Amount Dexmedetomidine/0.9% NaCl 30.870 (Pmx) 400 mcg In Empty Bag 1 bag @ 0.2 MCG/KG/HR 2.744 mls/hr IV .Q24H [facility] Rx#:[id number] Output: Urine 225 Other: Voiding Method External Catheter # Voids 1 - Exam The patient is still having some labored breathing on a BiPAP at pressure of 12/5 cm of water and FiO2 is being titrated to maintain saturation above 90%. She is not using any form of the bleeding at this point in time. Head exam was generally normal. There was no scleral icterus or corneal arcus. Mucous membranes were moist. Neck was supple and without jugular venous distension, thyromegaly, or carotid bruits. Carotids were easily palpable bilaterally. There was no adenopathy. Lungs although the medicine the patient has diffuse and scattered expiratory wheezes throughout the lungs bilaterally. The patient has also prolongation of the exhalation phase of breathing. Cardiac exam revealed the PMI to be normally situated and sized. The rhythm was regular and no extrasystoles were noted during several minutes of auscultation. The first and second heart sounds were normal and physiologic splitting of the second heart sound was noted. There were no murmurs, rubs, clicks, or gallops. The patient has a thoracotomy scar over the anterior chest Abdominal exam revealed normal bowel sounds. The abdomen was soft, non-tender, and without masses, organomegaly, or appreciable enlargement of the abdominal aorta. Examination of the extremities revealed easily palpable radial, femoral and pedal pulses. There was no cyanosis, clubbing or edema. Examination of the skin revealed no evidence of significant rashes, suspicious appearing nevi or other concerning lesions. Neurologically, the patient is awake and alert and the patient does not have any focal neurological deficit. Cranial nerves are essentially intact. - Labs CBC & Chem 7: 09/15/22 03:51 09/15/22 03:51 Labs: Abnormal Lab Results - Last 24 Hours (Table) 09/14/22 09/14/22 09/14/22 Range/Units 12:30 12:30 14:05 RBC (3.80-5.40) m/uL Hct (34.0-46.0) % ABG pH 7.24 L (7.35-7.45) ABG pCO2 46 H (35-45) mmHg ABG pO2 45 L* (83-108) mmHg ABG HCO3 20 L (21-25) mmol/L ABG O2 Saturation 75.8 L (94-97) % VBG pH 7.22 L (7.31-7.41) VBG HCO3 19 L (24-28) mmol/L Sodium (137-145) mmol/L Potassium (3.5-5.1) mmol/L Glucose (74-99) mg/dL POC Glucose (mg/dL) (70-110) mg/dL Plasma Lactic Acid Jose E 3.4 H* (0.7-2.0) mmol/L Calcium (8.4-10.2) mg/dL Troponin I (0.000-0.034) ng/mL C-Reactive Protein (<1.0) mg/dL 09/14/22 09/14/22 09/14/22 Range/Units 14:29 17:29 17:29 RBC (3.80-5.40) m/uL Hct (34.0-46.0) % ABG pH (7.35-7.45) ABG pCO2 (35-45) mmHg ABG pO2 (83-108) mmHg ABG HCO3 (21-25) mmol/L ABG O2 Saturation (94-97) % VBG pH (7.31-7.41) VBG HCO3 (24-28) mmol/L Sodium (137-145) mmol/L Potassium (3.5-5.1) mmol/L Glucose (74-99) mg/dL POC Glucose (mg/dL) (70-110) mg/dL Plasma Lactic Acid Jose E 3.1 H* (0.7-2.0) mmol/L Calcium (8.4-10.2) mg/dL Troponin I 0.088 H* 0.092 H* (0.000-0.034) ng/mL C-Reactive Protein (<1.0) mg/dL 09/14/22 09/14/22 09/15/22 Range/Units 20:15 20:53 03:51 RBC 3.51 L (3.80-5.40) m/uL Hct 32.9 L (34.0-46.0) % ABG pH (7.35-7.45) ABG pCO2 (35-45) mmHg ABG pO2 (83-108) mmHg ABG HCO3 (21-25) mmol/L ABG O2 Saturation (94-97) % VBG pH (7.31-7.41) VBG HCO3 (24-28) mmol/L Sodium (137-145) mmol/L Potassium (3.5-5.1) mmol/L Glucose (74-99) mg/dL POC Glucose (mg/dL) 209 H (70-110) mg/dL Plasma Lactic Acid Jose E 2.8 H* (0.7-2.0) mmol/L Calcium (8.4-10.2) mg/dL Troponin I (0.000-0.034) ng/mL C-Reactive Protein (<1.0) mg/dL 09/15/22 Range/Units 03:51 RBC (3.80-5.40) m/uL Hct (34.0-46.0) % ABG pH (7.35-7.45) ABG pCO2 (35-45) mmHg ABG pO2 (83-108) mmHg ABG HCO3 (21-25) mmol/L ABG O2 Saturation (94-97) % VBG pH (7.31-7.41) VBG HCO3 (24-28) mmol/L Sodium 135 L (137-145) mmol/L Potassium 3.2 L (3.5-5.1) mmol/L Glucose 154 H (74-99) mg/dL POC Glucose (mg/dL) (70-110) mg/dL Plasma Lactic Acid Jose E (0.7-2.0) mmol/L Calcium 7.8 L (8.4-10.2) mg/dL Troponin I (0.000-0.034) ng/mL C-Reactive Protein 4.2 H (<1.0) mg/dL Assessment and Plan Plan: Acute exacerbation of COPD, failed outpatient treatment as the patient was given doxycycline and prednisone burst taper on outpatient basis. The patient has symptoms of acute bronchitis she noticed of pneumonia based on the CT angiogram of the chest. No evidence of any pulmonary embolism. Covid 19 testing and the rest of the viral screening was negative. The patient is currently in the intensive care unit on a BiPAP and she continues to bronchospastic and wheezy at she continues to tolerate the BiPAP therapy for now. Acute hypoxic/hypercapnic respiratory failure secondary to above Acute lactic acidosis secondary to above and the patient has increase work of breathing, given IV fluids and the lactic acid being monitored, the levels improved Shortness of breath secondary to above Increased anxiety and hypertensive reaction and the patient is currently on Precedex drip Coronary artery disease with previous bypass surgery and the patient has undergone a single vessel bypass surgery 2012 with subsequent chronic cath eterization stenting Peripheral vascular disease with previous intervention enteroplasty and stenting of the SFA Hypertension Hyperlipidemia Previous history of smoking Fibromyalgia Seizure disorder Hypothyroidism History of migraines History of Sjogren's disease Plan Continue Precedex and titrate the dose Continue bronchodilators Continue Perforomist and Pulmicort updrafts Continue IV Solu-Medrol to 60 mg every 6 hours Continue empiric antibiotic coverage with Rocephin and Zithromax Continue BiPAP therapy Obtain a follow-up blood gas today while on the BiPAP Monitor lactic acid level, levels improved IV fluids at 50 mL an hour Resume all medications Lovenox for prophylaxis No need for intubation and this point in time Close monitoring in the intensive care unit. Condition remains quite critical. She'll be monitored very closely during the intensive care unit. The is at the bedside. I wore the spoken to him and inform them of his changes. Time with Patient: Greater than 30
[2022-09-15] MEDS: SODIUM CHLORIDE 0.9% 1,000 ML IV SCH (09:58)
[2022-09-15] MEDS: ENOXAPARIN 40 MG/0.4 ML SYRINGE SQ SCH (10:06)
[2022-09-15] MEDS: GABAPENTIN 100 MG CAP PO SCH ×3 (10:12→21:25)
[2022-09-15] MEDS: TOPIRAMATE 25 MG TAB PO SCH ×2 (10:12→21:25)
[2022-09-15] MEDS: CLOPIDOGREL 75 MG TAB PO SCH (10:12)
[2022-09-15] MEDS: guaiFENesin 600 MG TABLET.ER PO SCH ×2 (10:12→21:25)
[2022-09-15] MEDS: VENLAFAXINE HCL ER 75 MG CAP PO SCH ×2 (10:13→21:25)
[2022-09-15] MEDS: LOSARTAN 25 MG TAB PO SCH (10:13)
[2022-09-15] MEDS: PANTOPRAZOLE 40 MG/10 ML VIAL IV SCH (10:13)
[2022-09-15] MEDS: SUCRALFATE 1 GM TAB PO SCH ×2 (10:14→21:25)
[2022-09-15] MEDS: MULTIVITAMINS, THERA 1 EACH TAB PO SCH (10:15)
--- NOTE | 2022-09-15 10:38 | CONS ---
CONSULTATION HISTORY OF PRESENT ILLNESS: Sophia is a 62-year-old lady with history of coronary artery disease, status post CABG, status post prior angioplasty; COPD; hypothyroidism; dyslipidemia, who presented to hospital primarily with symptoms of not feeling well, back pain, abdominal discomfort, cough, and shortness of breath. We have been consulted because of mild elevation in troponin. At the time of my evaluation, the patient appears comfortable at rest, not in distress and is stable hemodynamically. The patient initially developed symptoms of upper respiratory tract infection, was seen by Dr. Inman in the office and subsequently with worsening systemic symptoms, got admitted to hospital. Her troponin on her initial presentation was 0.01, subsequently they became elevated at 0.08 and 0.09. An EKG shows sinus rhythm with nonspecific ST-T wave changes. A CT scan of the chest was negative for pulmonary embolism. PAST MEDICAL HISTORY: Significant for coronary artery disease, status post bypass surgery, status post prior angioplasty; COPD; hypertension; dyslipidemia; peripheral arterial disease, status post balloon angioplasty of the superficial femoral artery in June of 2022; fibromyalgia; and rheumatoid arthritis. MEDICATIONS: As charted. FAMILY HISTORY: Negative for premature coronary artery disease. SOCIAL HISTORY: Significant for smoking. REVIEW OF SYSTEMS: 14 out of 14 review of systems has been performed. Pertinents are as documented. PHYSICAL EXAMINATION: VITAL SIGNS: On exam, the patient is afebrile, heart rate is 110 beats per minute, blood pressure is 182/102, respiratory rate is 18. CHEST: Reveals good air entry bilaterally. HEART: Reveals first and second heart sounds. An S4 is heard. There is a systolic murmur at the apex ABDOMEN: Soft. EXTREMITIES: Exam of extremities did not reveal any edema. Peripheral pulses are palpable. LABORATORY DATA: Labs show potassium of 3.2, creatinine is 0.8, hemoglobin is 11.4, platelet count is 228. ASSESSMENT: 1. Acute exacerbation of chronic obstructive pulmonary disease. 2. Elevated troponin, probably related to type 2 myocardial infarction. 3. History of coronary artery disease, status post coronary artery bypass grafting, status post angioplasty; peripheral arterial disease, status post stent placement of right superficial femoral artery. 4. Hypertension. 5. Dyslipidemia. PLAN: I will continue the patient on aspirin, Plavix, Lipitor, and Zetia. Started on Cozaar and Lopressor. Increase the dose of Cozaar as needed to better control her blood pressure. MMODL / IJN: [id number] /
--- NOTE | 2022-09-15 12:17 | CA ---
Transthoracic Echo Report Name: Sophia Goodwin Age: 62 Gender: F : 1960 Exam Date: 09/15/2022 08:16 Exam Location: [facility] Ht (in): 60 Wt (lb): 121 Ordering Physician: Paul Hurtado MD Attending/Referring Phys: Medical Librarian Nathalia Aaron RDCS Procedure CPT: Indications: nstemi Cardiac Hx: Technical Quality: Poor Contrast 1: Lumason Total Dose (mL): 3 Contrast 2: Total Dose (mL): MEASUREMENTS (Male / Female) Normal Values 2D ECHO LV Diastolic Diameter PLAX 3.9 cm 4.2 - 5.9 / 3.9 - 5.3 cm LV Systolic Diameter PLAX 2.7 cm IVS Diastolic Thickness 1.3 cm 0.6 - 1.0 / 0.6 - 0.9 cm LVPW Diastolic Thickness 1.3 cm 0.6 - 1.0 / 0.6 - 0.9 cm LV Relative Wall Thickness 0.7 RV Internal Dim ED PLAX 2.8 cm LA Systolic Diameter LX 3.3 cm 3.0 - 4.0 / 2.7 - 3.8 cm LV Diastolic Volume MOD BP 68.4 cm??? 67 - 155 / 56 - 104 cm??? LV Systolic Volume MOD BP 23.7 cm??? 22 - 58 / 19 - 49 cm??? LV Ejection Fraction MOD BP 65.4 % >= 55 % LV Cardiac Index MOD BP 2131.6 cm???/min???m??? LV Diastolic Volume MOD 4C 71.2 cm??? LV Systolic Volume MOD 4C 25.3 cm??? LV Ejection Fraction MOD 4C 64.5 % LV Cardiac Index MOD 4C 2184.6 cm???/min???m??? LV Diastolic Length 4C 6.9 cm LV Systolic Length 4C 5.8 cm LV Diastolic Volume MOD 2C 61.9 cm??? LV Systolic Volume MOD 2C 10.0 cm??? LV Ejection Fraction MOD 2C 83.9 % LV Cardiac Index MOD 2C 2469.7 cm???/min???m??? LV Diastolic Length 2C 6.4 cm LV Systolic Length 2C 2.5 cm LA Volume 49.4 cm??? 18 - 58 / 22 - 52 cm??? M-MODE Aortic Root Diameter MM 3.3 cm MV E Point Septal Separation 1.5 cm AV Cusp Separation MM 1.9 cm DOPPLER AV Peak Velocity 106.8 cm/s AV Peak Gradient 4.6 mmHg MV Area PHT 3.2 cm??? Mitral E Point Velocity 124.3 cm/s Mitral A Point Velocity 74.1 cm/s Mitral E to A Ratio 1.7 MV Deceleration Time 237.1 ms MV E' Velocity 11.2 cm/s Mitral E to MV E' Ratio 11.1 TR Peak Velocity 200.9 cm/s TR Peak Gradient 16.1 mmHg Right Ventricular Systolic Press 20.4 mmHg FINDINGS Left Ventricle Left ventricular ejection fraction is estimated at 35-40 %. Anteroapical and anterolateral hypokinesis Left ventricular cavity size normal. Mildly increased left ventricular wall thickness. Right Ventricle Normal right ventricular size. Right ventricular systolic pressure within normal limits. Right Atrium Normal right atrial size. Left Atrium Normal left atrial size. Mitral Valve Structurally normal mitral valve. No mitral stenosis, or prolapse.mild mitral regurgitation. Aortic Valve Trileaflet aortic valve. Aortic valve sclerosis. Tricuspid Valve Structurally normal tricuspid valve. Mild tricuspid regurgitation. Pulmonic Valve Structurally normal pulmonic valve. No pulmonic regurgitation. Pericardium Normal pericardium. No pericardial effusion. Aorta Normal size aortic root and proximal ascending aorta. CONCLUSIONS 1. Moderately impaired left ventricle systolic function with segmental wall motion abnormality 2. Mild mitral and tricuspid regurgitation and no evidence of pulmonary hypertension Previewed by: Dr. Brittany Gasca MD (Electronically Signed) Final Date: 15 September 2022 12:16
[2022-09-15] MEDS: AZITHROMYCIN 500 MG in SODIUM CHLORIDE 0.9% 250 ML IVPB SCH (12:33)
--- NOTE | 2022-09-15 12:37 | P.PN ---
Subjective Progress Note Date: 09/15/22 * 62-year-old lady with past medical history of peripheral arterial disease, COPD, hypertension, hyperlipidemia, recent intervention for critical limb ischemia of left lower extremity with balloon angioplasty of SFA in June 2022 present to the emergency department with complaints of not feeling well for 1 week. Patient had followed up with pulmonary medicine outpatient and was prescribed steroids and antibiotic. Patient says she has been having shortness of breath and generalized fatigue and malaise chest congestion and perfuse diarrhea. Patient also had episode of vomiting. * Time of presentation in ER patient was noted to be in acute distress with significant elevation of blood pressure. Patient was noted to be tachycardic and hypoxic. * Blood was obtained in ER included elevated d-dimer, CT chest was obtained which was negative for pulmonary embolism. Basic metabolic panel showed normal sodium, potassium, normal creatinine, lactic acid of 2.5 follow-up lactate of 3.4 patient was resuscitated with fluid. Patient tested negative for Covid and influenza * Patient was noted to have respiratory distress and was transferred to ICU for further management for COPD exacerbation and sepsis * 09/15: Hospital day 2, patient significant improvement noted. Patient able to have a full conversation and weaned off to room air. Troponins were elevated overnight likely secondary to type II [place]. Cardiology consulted as well at bedside QUESTIONS answered. Patient does complain of shortness of breath and cough. Poor IV access with IV noted in lower extremity Objective - Vital Signs Vital signs: Vital Signs Temp 97.6 F 09/15/22 08:15 Pulse 71 09/15/22 12:19 Resp 15 09/15/22 12:11 BP 106/53 09/15/22 12:00 Pulse Ox 90 L 09/15/22 12:00 FiO2 40 09/15/22 10:00 Intake & Output 09/14/22 09/15/22 09/15/22 18:59 06:59 18:59 Intake Total 220 243.385 Output Total 225 380 Balance -5 -136.615 Weight 54.885 kg 56.4 kg Intake: IV 220 210 IV Fluid 220 210 Intake, IV Titration 33.385 Amount Dexmedetomidine/0.9% NaCl 33.385 (Pmx) 400 mcg In Empty Bag 1 bag @ 0.2 MCG/KG/HR 2.744 mls/hr IV .Q24H [facility] Rx#:[id number] Output: Urine 225 380 Other: Voiding Method External Catheter # Voids 1 - Exam PHYSICAL EXAMINATION: GENERAL: The patient is alert and oriented x3, ill appearance, HEENT: Pupils are round and equally reacting to light. EOMI. No scleral icterus. No conjunctival pallor. Normocephalic, atraumatic. No pharyngeal erythema. No thyromegaly. CARDIOVASCULAR: S1 and S2 present. No murmurs, rubs, or gallops. PULMONARY: Agrees breath sounds bilaterally ABDOMEN: Soft, nontender, nondistended, normoactive bowel sounds. No palpable organomegaly. MUSCULOSKELETAL: No joint swelling or deformity. EXTREMITIES: No cyanosis, clubbing, or pedal edema. NEUROLOGICAL: Gross neurological examination did not reveal any focal deficits. SKIN: No rashes. - Labs CBC & Chem 7: 09/15/22 03:51 09/15/22 03:51 Labs: Abnormal Lab Results - Last 24 Hours (Table) 09/14/22 09/14/22 09/14/22 Range/Units 12:30 12:30 14:05 RBC (3.80-5.40) m/uL Hct (34.0-46.0) % ABG pH 7.24 L (7.35-7.45) ABG pCO2 46 H (35-45) mmHg ABG pO2 45 L* (83-108) mmHg ABG HCO3 20 L (21-25) mmol/L ABG O2 Saturation 75.8 L (94-97) % VBG pH 7.22 L (7.31-7.41) VBG HCO3 19 L (24-28) mmol/L Sodium (137-145) mmol/L Potassium (3.5-5.1) mmol/L Glucose (74-99) mg/dL POC Glucose (mg/dL) (70-110) mg/dL Plasma Lactic Acid Jose E 3.4 H* (0.7-2.0) mmol/L Calcium (8.4-10.2) mg/dL Troponin I (0.000-0.034) ng/mL C-Reactive Protein (<1.0) mg/dL 09/14/22 09/14/22 09/14/22 Range/Units 14:29 17:29 17:29 RBC (3.80-5.40) m/uL Hct (34.0-46.0) % ABG pH (7.35-7.45) ABG pCO2 (35-45) mmHg ABG pO2 (83-108) mmHg ABG HCO3 (21-25) mmol/L ABG O2 Saturation (94-97) % VBG pH (7.31-7.41) VBG HCO3 (24-28) mmol/L Sodium (137-145) mmol/L Potassium (3.5-5.1) mmol/L Glucose (74-99) mg/dL POC Glucose (mg/dL) (70-110) mg/dL Plasma Lactic Acid Jose E 3.1 H* (0.7-2.0) mmol/L Calcium (8.4-10.2) mg/dL Troponin I 0.088 H* 0.092 H* (0.000-0.034) ng/mL C-Reactive Protein (<1.0) mg/dL 09/14/22 09/14/22 09/15/22 Range/Units 20:15 20:53 03:51 RBC 3.51 L (3.80-5.40) m/uL Hct 32.9 L (34.0-46.0) % ABG pH (7.35-7.45) ABG pCO2 (35-45) mmHg ABG pO2 (83-108) mmHg ABG HCO3 (21-25) mmol/L ABG O2 Saturation (94-97) % VBG pH (7.31-7.41) VBG HCO3 (24-28) mmol/L Sodium (137-145) mmol/L Potassium (3.5-5.1) mmol/L Glucose (74-99) mg/dL POC Glucose (mg/dL) 209 H (70-110) mg/dL Plasma Lactic Acid Jose E 2.8 H* (0.7-2.0) mmol/L Calcium (8.4-10.2) mg/dL Troponin I (0.000-0.034) ng/mL C-Reactive Protein (<1.0) mg/dL 09/15/22 Range/Units 03:51 RBC (3.80-5.40) m/uL Hct (34.0-46.0) % ABG pH (7.35-7.45) ABG pCO2 (35-45) mmHg ABG pO2 (83-108) mmHg ABG HCO3 (21-25) mmol/L ABG O2 Saturation (94-97) % VBG pH (7.31-7.41) VBG HCO3 (24-28) mmol/L Sodium 135 L (137-145) mmol/L Potassium 3.2 L (3.5-5.1) mmol/L Glucose 154 H (74-99) mg/dL POC Glucose (mg/dL) (70-110) mg/dL Plasma Lactic Acid Jose E (0.7-2.0) mmol/L Calcium 7.8 L (8.4-10.2) mg/dL Troponin I (0.000-0.034) ng/mL C-Reactive Protein 4.2 H (<1.0) mg/dL Assessment and Plan Assessment: Assessment and plan * Acute hypoxic hypercapnic respiratory failure acute tracheobronchitis * Acute metabolic encephalopathy * Peripheral arterial disease recent angioplasty of left SFA * Sepsis * Coronary artery disease * Hypertensive urgency * Elevated troponin secondary to type [place] * In regards to acute hypoxic hypercapnic respiratory failure, pulmonary medicine consulted. Continue patient on Rocephin and azithromycin day 2 * Continue patient on IV Solu-Medrol, breathing treatments ordered, continue patient on Mucinex, , patient required BiPAP which has been weaned down to nasal cannula now room air * In regards to peripheral arterial disease continue aspirin, statin, Plavix * In regards to sepsis, patient had elevated lactate levels which improved after hydration continue patient on IV antibiotics blood cultures ordered * Regards to elevated troponin, cardiology consulted will follow-up on echocardiogram. Etiology for elevated troponin type II [place] * CODE STATUS is full code Time with Patient: Greater than 30
[2022-09-15] MEDS: METOPROLOL TARTRATE 25 MG TAB PO SCH ×2 (14:54→19:24)
[2022-09-15] MEDS: DEXMEDETOMIDINE/0.9% NACL(PMX) 400 MCG in EMPTY BAG 1 BAG IV SCH (17:24)
[2022-09-15] MEDS ORDERED: ACETAMINOPHEN IV (For NPO) 1,000 MG in EMPTY BAG 1 BAG IVPB PRN (17:49)
[2022-09-15] MEDS: traZODone HCL 100 MG TAB PO SCH (21:25)
[2022-09-15] MEDS: ASPIRIN 325 MG TAB PO SCH (21:25)
[2022-09-15] MEDS: EZETIMIBE 10 MG TAB PO SCH (21:25)
[2022-09-15] MEDS: traMADol 50 MG TAB PO PRN (21:30)
[2022-09-16] MEDS: IPRATROPIUM-ALBUTEROL 3 ML NEB INHALATION PRN ×2 (00:38→04:18)
[2022-09-16] MEDS ORDERED: POTASSIUM CHLORIDE ER 20 MEQ TAB.ER PO SCH (02:00)
[2022-09-16 04:41] LABS: HCT 32.8 % (34.0-46.0); MCH 32.4 pg (25.0-35.0); MCHC 33.5 g/dL (31.0-37.0); MCV 96.5 fL (80.0-100.0); Mean Platelet Volume 8.4; Platelet Count 225 k/uL (150-450); RDW 12.7 % (11.5-15.5); WBC 7.6 k/uL (3.8-10.6)
[2022-09-16 04:50] LABS: African American GFR (CKD) 79 (>60 ml/min/1.73 sqM); Anion Gap 6 mmol/L; Blood Urea Nitrogen 20 mg/dL (7-17); Calcium 8.4 mg/dL (8.4-10.2); Carbon Dioxide 25 mmol/L (22-30); Chloride 108 mmol/L (98-107); Glucose 202 mg/dL (74-99); Non-African American GFR(CKD) 68 (>60 ml/min/1.73 sqM); Potassium 4.1 mmol/L (3.5-5.1); Sodium 139 mmol/L (137-145)
[2022-09-16 05:20] LABS: C Reactive Protein 2.4 mg/dL (<1.0)
[2022-09-16] MEDS: LEVOTHYROXINE 75 MCG TAB PO SCH (06:30)
[2022-09-16] MEDS: methylPREDNISolone SOD SUCCI 125 MG/2 ML VIAL IV SCH ×3 (06:30→17:27)
[2022-09-16] MEDS: traMADol 50 MG TAB PO PRN ×3 (06:47→20:03)
--- NOTE | 2022-09-16 08:09 | XR ---
EXAMINATION TYPE: XR chest 1V portable DATE OF EXAM: 09/16/2022 COMPARISON: 09/14/2022 INDICATION: Short of breath TECHNIQUE: Single frontal view of the chest is obtained. FINDINGS: The heart size is normal. The pulmonary vasculature is normal. There is persistent tenting of the right diaphragm may be related to some atelectasis. Sternotomy wir es are present from prior CABG. IMPRESSION: 1. Atelectasis right lung base appears stable. Continued follow-up is recommended
[2022-09-16] MEDS: GABAPENTIN 100 MG CAP PO SCH ×3 (08:21→21:05)
[2022-09-16] MEDS: CLOPIDOGREL 75 MG TAB PO SCH (08:21)
[2022-09-16] MEDS: ENOXAPARIN 40 MG/0.4 ML SYRINGE SQ SCH (08:21)
[2022-09-16] MEDS: PANTOPRAZOLE 40 MG/10 ML VIAL IV SCH (08:22)
[2022-09-16] MEDS: guaiFENesin 600 MG TABLET.ER PO SCH ×2 (08:22→21:04)
[2022-09-16] MEDS: LOSARTAN 25 MG TAB PO SCH (08:22)
[2022-09-16] MEDS: MULTIVITAMINS, THERA 1 EACH TAB PO SCH (08:22)
[2022-09-16] MEDS: TOPIRAMATE 25 MG TAB PO SCH ×2 (08:23→21:05)
[2022-09-16] MEDS: VENLAFAXINE HCL ER 75 MG CAP PO SCH ×2 (08:23→21:05)
[2022-09-16] MEDS: IPRATROPIUM-ALBUTEROL 3 ML NEB INHALATION SCH ×4 (08:39→20:32)
[2022-09-16] MEDS: FORMOTEROL FUMARATE 20 MCG/2 ML NEBU INHALATION SCH ×2 (08:39→20:32)
[2022-09-16] MEDS: BUDESONIDE 0.5 MG/2 ML NEBU INHALATION SCH ×2 (08:39→20:32)
[2022-09-16] MEDS ORDERED: LORazepam 0.5 MG TAB PO PRN (09:30)
--- NOTE | 2022-09-16 09:33 | P.PN ---
Subjective Progress Note Date: 09/16/22 62-year-old female patient, presented to the emergency department because of progressive dyspnea for approximately a week. She has been seen in our office will worsening shortness of breath and she was diagnosed having an acute COPD exacerbation/tracheal bronchitis and the patient was given a course of doxycycline and a prednisone burst taper. Nevertheless, her condition decompensated and the patient ended up coming into the emergency department with increase shortness of breath. The patient was in significant respiratory distress. She was immediately placed on a BiPAP at a pressure of 12/5 cm of water. Initial blood gases were poor and the patient a pH of 7.24 with a pCO2 of 46. This could have been potentially intravenous sample also. Nevertheless, her condition progressively improved and the patient became less labored while on the BiPAP. At this point in time, she is communicating. She is alert. She feels that her breathing is improved. She is still actively bronchospastic and wheezy. Lactic acid is being monitored and the level was high at 3.4 and the patient was given a total of 2 L of IV fluids. As of the blood work is within normal limits. CBC within normal limits. The d-dimer was 0.66. CT angiogram showed no acute abnormalities. No evidence of any pulmonary embolism. No evidence of any pneumonias. The patient has a negative Covid 19 influenza and RSV screening test. She is known to have multiple medical problems. She is known to have coronary artery disease and she has undergone single-vessel bypass surgery, she has fibromyalgia, hyperlipidemia, Sjogren's disease, hyperlipidemia, hypothyroidism, and she has a previous history of smoking and she is not actively smoking at this point in time. She also has previous history of seizure disorder. She has undergone previous vascular intervention angioplasty and stenting to the SFA as the patient is also known to have peripheral vascular disease and claudication. 09/15/2022, I'm seeing the patient for a follow-up. The patient was seen in the emergency department the patient got moved to the intensive care unit. Overnight, the patient was kept on a BiPAP. She was given brief episodes of the BiPAP yet she still very much BiPAP dependent as the patient is still bronchospastic and wheezy and she continues to have limited air entry bilaterally. She is on a BiPAP at a pressure of 12/5. She generating a tidal volume of 400 with a rate of 25 and a minute ventilation of 10. She is on FiO2 of 40%. Overnight, she became anxious and hypotensive. I started on Precedex which is currently running at 0.3 mcg/kg/h. This has calmed her significantly and made her more synchronous with the BiPAP machine. She was able to get a IV line in the left upper extremity. WBC count today's at 6.6 with a hemoglobin of 11.4. BUN is at 16 with a creatinine of 0.8 and a sodium level is at 135. Lactic acid level dropped down to 1.6. Troponin was 0.01, 0.08 and 0.09 respectively. The patient is awake and alert and communicating. She is on DuoNeb updrafts. She is on Pulmicort and Perforomist and blood treatments. She remains on IV Solu-Medrol. Outpatient medications have been resumed. 09/16/2022, the patient remains on BiPAP. She was given episodes off the BiPAP yesterday where she was able to tolerate and she was placed back on a BiPAP. Earlier this morning, she was looking great and she was taken off the Precedex also. Subsequently, she became very anxious off the Precedex and the patient showed up her blood pressure and her heart rate. The medication was restarted and the patient is currently on Precedex at 0.2 mcg/kg/h. Chest x-ray findings are unchanged. She was placed back on a BiPAP at a pressure of 12.5 cm of water with an FiO2 of 40%. She remains bronchodilators and steroids. There is improvement in air entry on today's lung examination. She'll be offered some soft diet. The white cell count of 7.6 with a hemoglobin of 11, BUN is at 20 with a creatinine of 0.9. Sodium level is at 139. Awake and alert and communicating. is at the bedside. Objective - Vital Signs Vital signs: Vital Signs Temp 96.1 F L 09/16/22 08:00 Pulse 90 09/16/22 09:04 Resp 31 H 09/16/22 09:00 BP 206/19 09/16/22 09:00 Pulse Ox 98 09/16/22 09:00 FiO2 40 09/16/22 09:00 Intake & Output 09/15/22 09/16/22 09/16/22 18:59 06:59 18:59 Intake Total 817.959 626.137 171.495 Output Total 380 775 300 Balance 437.959 -148.863 -128.505 Weight 55.7 kg Intake: IV 510 600 150 IV Fluid 510 600 150 Intake, IV Titration 67.959 26.137 21.495 Amount Dexmedetomidine/0.9% NaCl 67.959 26.137 21.495 (Pmx) 400 mcg In Empty Bag 1 bag @ 0.2 MCG/KG/HR 2.744 mls/hr IV .Q24H [facility] Rx#:[id number] Oral 240 Output: Urine 380 775 300 Other: Voiding Method Bedside Commode Bedside Commode Bedside Commode - Exam The patient is still having some labored breathing on a BiPAP at pressure of 12/5 cm of water and FiO2 is being titrated to maintain saturation above 90%. Head exam was generally normal. There was no scleral icterus or corneal arcus. Mucous membranes were moist. Neck was supple and without jugular venous distension, thyromegaly, or carotid bruits. Carotids were easily palpable bilaterally. There was no adenopathy. Lungs although the medicine the patient has diffuse and scattered expiratory wheezes throughout the lungs bilaterally. The patient has also prolongation of the exhalation phase of breathing. Cardiac exam revealed the PMI to be normally situated and sized. The rhythm was regular and no extrasystoles were noted during several minutes of auscultation. The first and second heart sounds were normal and physiologic splitting of the second heart sound was noted. There were no murmurs, rubs, clicks, or gallops. The patient has a thoracotomy scar over the anterior chest Abdominal exam revealed normal bowel sounds. The abdomen was soft, non-tender, and without masses, organomegaly, or appreciable enlargement of the abdominal aorta. Examination of the extremities revealed easily palpable radial, femoral and pedal pulses. There was no cyanosis, clubbing or edema. Examination of the skin revealed no evidence of significant rashes, suspicious appearing nevi or other concerning lesions. Neurologically, the patient is awake and alert and the patient does not have any focal neurological deficit. Cranial nerves are essentially intact. - Labs CBC & Chem 7: 09/16/22 04:21 09/16/22 04:21 Labs: Abnormal Lab Results - Last 24 Hours (Table) 09/16/22 09/16/22 Range/Units 04:21 04:21 RBC 3.40 L (3.80-5.40) m/uL Hgb 11.0 L (11.4-16.0) gm/dL Hct 32.8 L (34.0-46.0) % Chloride 108 H (98-107) mmol/L BUN 20 H (7-17) mg/dL Glucose 202 H (74-99) mg/dL C-Reactive Protein 2.4 H (<1.0) mg/dL Microbiology - Last 24 Hours (Table) 09/14/22 14:29 Blood Culture - Preliminary Blood 09/14/22 12:30 Blood Culture - Preliminary Blood Assessment and Plan Plan: Acute exacerbation of COPD, failed outpatient treatment as the patient was given doxycycline and prednisone burst taper on outpatient basis. The patient has symptoms of acute bronchitis she noticed of pneumonia based on the CT angiogram of the chest. No evidence of any pulmonary embolism. Covid 19 testing and the rest of the viral screening was negative. The patient is currently in the intensive care unit on a BiPAP and she continues to bronchospastic and wheezy at she continues to tolerate the BiPAP therapy for now. Still BiPAP dependent. Still benefiting from Precedex due to increased anxiety level. Chest x-ray remains clear and unchanged. Acute hypoxic/hypercapnic respiratory failure secondary to above Acute lactic acidosis secondary to above and the patient has increase work of breathing, given IV fluids and the lactic acid being monitored, the levels improved Shortness of breath secondary to above Increased anxiety and hypertensive reaction and the patient is currently on Precedex drip Coronary artery disease with previous bypass surgery and the patient has undergone a single vessel bypass surgery 2012 with subsequent chronic catheterization stenting Peripheral vascular disease with previous intervention enteroplasty and stenting of the SFA Hypertension Hyperlipidemia Previous history of smoking Fibromyalgia Seizure disorder Hypothyroidism History of migraines History of Sjogren's disease Plan Continue Precedex and titrate the dose Start the patient on was put on 20 mg by mouth twice a day Use Ativan 0.5 mg every 4-6 hours as needed Continue bronchodilators Continue Perforomist and Pulmicort updrafts Continue IV Solu-Medrol to 60 mg every 6 hours Continue empiric antibiotic coverage with Rocephin and Zithromax Continue BiPAP therapy, give the patient breaks off the BiPAP Monitor lactic acid level, levels improved IV fluids at 50 mL an hour Resume all medications Lovenox for prophylaxis No need for intubation and this point in time Close monitoring in the intensive care unit. Condition remains quite critical. She'll be monitored very closely during the intensive care unit. The is at the bedside.
[2022-09-16] MEDS ORDERED: busPIRone HCl 10 MG TAB PO STA (10:06)
[2022-09-16] MEDS: METOPROLOL TARTRATE 25 MG TAB PO SCH ×2 (10:54→21:04)
[2022-09-16] MEDS ORDERED: LOSARTAN 25 MG TAB PO STA (10:56)
--- NOTE | 2022-09-16 11:50 | PN ---
PROGRESS NOTE SUBJECTIVE: A 62-year-old lady who was admitted to hospital with dyspnea and abdominal discomfort. Cardiology had been consulted because of mildly elevated troponin. An echocardiogram on this admission revealed moderate LV systolic dysfunction with an ejection fraction of 35% to 40% with apical hypokinesis. The patient's predominant symptom is in the form of shortness of breath and uncontrolled hypertension this morning. The patient also has peripheral arterial disease and had angioplasty of the left superficial femoral artery and has prior history of coronary artery disease. OBJECTIVE: VITAL SIGNS: On exam, heart rate is 106 beats per minute. Blood pressure is 169/86, respiratory rate is 18, O2 saturation is 97%. CHEST: Reveals occasional rhonchi with diminished air entry. HEART: Reveals first and second heart sounds. No gallop. No murmur. ABDOMEN: Soft. EXTREMITIES: Exam of extremities did not reveal any edema. Peripheral pulses are felt. MEDICATIONS: She is currently on Lopressor 25 b.i.d., Cozaar 50 mg daily, Zetia, Plavix. ASSESSMENT: 1. Ischemic cardiomyopathy. 2. Peripheral arterial disease. 3. Acute exacerbation of chronic obstructive pulmonary disease. 4. Coronary artery disease, status post coronary artery bypass grafting. PLAN: I will increase the dose of metoprolol if necessary. MMODL / IJN: [id number] /
[2022-09-16] MEDS: DEXMEDETOMIDINE/0.9% NACL(PMX) 400 MCG in EMPTY BAG 1 BAG IV SCH ×2 (12:03→22:56)
[2022-09-16] MEDS: SUCRALFATE 1 GM TAB PO SCH ×2 (12:03→21:54)
[2022-09-16] MEDS: AZITHROMYCIN 500 MG in SODIUM CHLORIDE 0.9% 250 ML IVPB SCH (12:07)
[2022-09-16] MEDS ORDERED: MORPHINE SULFATE 2 MG/ML SYRINGE IVP STA (12:33)
--- NOTE | 2022-09-16 13:12 | XR ---
EXAMINATION TYPE: XR abdomen 1V DATE OF EXAM: 09/16/2022 COMPARISON: 05/11/2011 INDICATION: Abdomen pain TECHNIQUE: Single view abdomen frontal projection FINDINGS: There are mildly prominent small bowel loops containing air within the left mid abdomen. Air and feca l debris are within the ascending colon. Some descending colon air is present. No mass effect is evid ent. Cholecystectomy clips are present. Organomegaly is not evident. Psoas margins faintly visualized are normal. No organomegaly is present. IMPRESSION: 1. Nonspecific abdomen. Correlate for mild small bowel ileus. Follow-up can be performed.
--- NOTE | 2022-09-16 13:19 | P.PN ---
Subjective Progress Note Date: 09/16/22 * 62-year-old lady with past medical history of peripheral arterial disease, COPD, hypertension, hyperlipidemia, recent intervention for critical limb ischemia of left lower extremity with balloon angioplasty of SFA in June 2022 present to the emergency department with complaints of not feeling well for 1 week. Patient had followed up with pulmonary medicine outpatient and was prescribed steroids and antibiotic. Patient says she has been having shortness of breath and generalized fatigue and malaise chest congestion and perfuse diarrhea. Patient also had episode of vomiting. * Time of presentation in ER patient was noted to be in acute distress with significant elevation of blood pressure. Patient was noted to be tachycardic and hypoxic. * Blood was obtained in ER included elevated d-dimer, CT chest was obtained which was negative for pulmonary embolism. Basic metabolic panel showed normal sodium, potassium, normal creatinine, lactic acid of 2.5 follow-up lactate of 3.4 patient was resuscitated with fluid. Patient tested negative for Covid and influenza * Patient was noted to have respiratory distress and was transferred to ICU for further management for COPD exacerbation and sepsis * 09/15: Hospital day 2, patient significant improvement noted. Patient able to have a full conversation and weaned off to room air. Troponins were elevated overnight likely secondary to type II IA. Cardiology consulted as well at bedside QUESTIONS answered. Patient does complain of shortness of breath and cough. Poor IV access with IV noted in lower extremity * 09/16: Patient is improving from respiratory standpoint. Hospital day 3. Did complain of epigastric pain. Lipase ordered x-ray KUB ordered IV pain medications ordered one time we'll follow-up denies of associated nausea. Denies fever. Continue to remain on room air continue to be managed in ICU Objective - Vital Signs Vital signs: Vital Signs Temp 96.1 F L 09/16/22 08:00 Pulse 99 09/16/22 11:00 Resp 12 09/16/22 11:00 BP 172/98 09/16/22 11:00 Pulse Ox 95 09/16/22 11:00 FiO2 40 09/16/22 10:30 Intake & Output 09/15/22 09/16/22 09/16/22 18:59 06:59 18:59 Intake Total 817.959 626.137 449.498 Output Total 380 775 300 Balance 437.959 -148.863 149.498 Weight 55.7 kg Intake: IV 510 600 300 IV Fluid 510 600 300 Intake, IV Titration 67.959 26.137 29.498 Amount Dexmedetomidine/0.9% NaCl 67.959 26.137 29.498 (Pmx) 400 mcg In Empty Bag 1 bag @ 0.2 MCG/KG/HR 2.744 mls/hr IV .Q24H [facility] Rx#:[id number] Oral 240 120 Output: Urine 380 775 300 Other: Voiding Method Bedside Commode Bedside Commode Bedside Commode # Voids 1 # Bowel Movements 1 - Exam PHYSICAL EXAMINATION: GENERAL: The patient is alert and oriented x3, ill appearance, HEENT: Pupils are round and equally reacting to light. EOMI. No scleral icterus. No conjunctival pallor. Normocephalic, atraumatic. No pharyngeal erythema. No thyromegaly. CARDIOVASCULAR: S1 and S2 present. No murmurs, rubs, or gallops. PULMONARY: Decreased breath sounds bilaterally ABDOMEN: Soft, mild epigastric tenderness MUSCULOSKELETAL: No joint swelling or deformity. EXTREMITIES: No cyanosis, clubbing, or pedal edema. NEUROLOGICAL: Gross neurological examination did not reveal any focal deficits. SKIN: No rashes. - Labs CBC & Chem 7: 09/16/22 04:21 09/16/22 04:21 Labs: Abnormal Lab Results - Last 24 Hours (Table) 09/16/22 09/16/22 Range/Units 04:21 04:21 RBC 3.40 L (3.80-5.40) m/uL Hgb 11.0 L (11.4-16.0) gm/dL Hct 32.8 L (34.0-46.0) % Chloride 108 H (98-107) mmol/L BUN 20 H (7-17) mg/dL Glucose 202 H (74-99) mg/dL C-Reactive Protein 2.4 H (<1.0) mg/dL Microbiology - Last 24 Hours (Table) 09/14/22 14:29 Blood Culture - Preliminary Blood 09/14/22 12:30 Blood Culture - Preliminary Blood Assessment and Plan Assessment: Assessment and plan * Acute hypoxic hypercapnic respiratory failure acute tracheobronchitis * Acute metabolic encephalopathy * Peripheral arterial disease recent angioplasty of left SFA * Sepsis * Coronary artery disease * Hypertensive urgency * Elevated troponin secondary to type IA * In regards to acute hypoxic hypercapnic respiratory failure, pulmonary medicine consulted. Continue patient on Rocephin and azithromycin day 3/5 * Continue patient on IV Solu-Medrol, breathing treatments ordered, continue patient on Mucinex, , patient required BiPAP which has been weaned down to nasal cannula now room air * In regards to peripheral arterial disease continue aspirin, statin, Plavix * In regards to sepsis, patient had elevated lactate levels which improved after hydration continue patient on IV antibiotics blood cultures no growth to date * Regards to elevated troponin, cardiology consulted will follow-up on echocardiogram shows moderately impaired left ventricle systolic function with wall motion abnormality, mild mitral and tricuspid regurgitation noted to ejection fraction 65%. Etiology for elevated troponin type II IA * CODE STATUS is full code Time with Patient: Greater than 30
[2022-09-16 13:28] LABS: ABG Base Excess -10.4 mmol/L; ABG HCO3 19 mmol/L (21-25); ABG Oxygen Saturation 97.5 % (94-97); ABG PCO2 54 mmHg (35-45); ABG PO2 139 mmHg (83-108); ABG TCO2 20 mmol/L (19-24); Allen Test Performed? Yes
[2022-09-16 13:31] LABS: ABG PH 7.14 (7.35-7.45)
[2022-09-16] MEDS ORDERED: SODIUM BICARB 8.4% 50 ML SYR (1 MEQ/ML) IV STA (13:40)
[2022-09-16] MEDS ORDERED: FUROSEMIDE 10 MG/ML 4 ML VIAL IV STA (13:41)
[2022-09-16] MEDS: SODIUM CHLORIDE 0.9% 1,000 ML IV SCH ×2 (14:00→17:25)
[2022-09-16] MEDS ORDERED: DEXTROSE 50% SYRINGE 50 ML IVP PRN ×2 (17:43)
[2022-09-16 17:47] LABS: Glucose,Whole Blood 217 mg/dL (70-110)
[2022-09-16] MEDS ORDERED: FUROSEMIDE 10 MG/ML 4 ML VIAL IV ONE (18:00)
[2022-09-16 18:10] LABS: Potassium 3.7 mmol/L (3.5-5.1); Total Bilirubin 0.3 mg/dL (0.2-1.3)
[2022-09-16] MEDS: INSULIN ASPART (NovoLOG) 100 UNIT/ML VIAL SQ SCH ×2 (18:14→21:54)
[2022-09-16] MEDS ORDERED: HYDROmorphone 1 MG/ML 1 ML SYRINGE IVP PRN (18:17)
[2022-09-16] MEDS: HYDROmorphone 1 MG/ML 1 ML SYRINGE IVP PRN ×2 (18:30→21:08)
[2022-09-16] MEDS ORDERED: Potassium Replacement Protocol 1 EACH MISC MISCELLANE PRN (18:58)
--- NOTE | 2022-09-16 20:00 | US ---
EXAMINATION TYPE: US abdomen complete DATE OF EXAM: 09/16/2022 COMPARISON: NONE CLINICAL INDICATION: Female, 62 years old with history of abdominal pain, elevated lipase; Abnormal l abs, pain, GB removed in 2006 TECHNIQUE: Multiple sonographic images of the abdomen are obtained. FINDINGS: EXAM MEASUREMENTS: Liver Length: 16.0 cm CBD: 0.7 cm Spleen: 8.1 cm Right Kidney: 10.5 x 4.2 x 4.5 cm Left Kidney: 9.3 x 4.5 x 4.2 cm CRUSHED STONE GRADER NOTES: Pancreas: Obscured by bowel gas Liver: Heterogeneous Gallbladder: Surgically absent Evidence for sonographic Rojas's sign: Yes CBD: wnl Spleen: wnl Right Kidney: No evidence of hydro Left Kidney: No evidence of hydro, lower pole gassed out Upper IVC: wnl Abd Aorta: Obscured by overlying bowel gas IMPRESSION: Unremarkable abdomen ultrasound
[2022-09-16] MEDS: POTASSIUM CHLORIDE 10 MEQ in WATER FOR INJECTION 1 100ML.BAG IVPB SCH ×2 (21:04→22:56)
[2022-09-16] MEDS: EZETIMIBE 10 MG TAB PO SCH (21:04)
[2022-09-16] MEDS: ASPIRIN 325 MG TAB PO SCH (21:05)
[2022-09-16] MEDS: busPIRone HCl 10 MG TAB PO SCH (21:05)
[2022-09-16 21:54] LABS: Glucose,Whole Blood 121 mg/dL (70-110)
[2022-09-16] MEDS: traZODone HCL 100 MG TAB PO SCH (21:54)
[2022-09-17] MEDS: methylPREDNISolone SOD SUCCI 125 MG/2 ML VIAL IV SCH ×4 (00:08→17:53)
[2022-09-17] MEDS: HYDROmorphone 1 MG/ML 1 ML SYRINGE IVP PRN ×7 (00:14→21:42)
[2022-09-17] MEDS: SODIUM CHLORIDE 0.9% 1,000 ML IV SCH ×2 (00:24→16:39)
[2022-09-17 03:43] LABS: HCT 36.1 % (34.0-46.0); HGB 11.6 gm/dL (11.4-16.0); MCH 31.2 pg (25.0-35.0); MCHC 32.2 g/dL (31.0-37.0); MCV 96.7 fL (80.0-100.0); Mean Platelet Volume 8.6; Platelet Count 249 k/uL (150-450); RBC 3.73 m/uL (3.80-5.40)
[2022-09-17 03:52] LABS: ALT 99 U/L (4-34); AST 149 U/L (14-36); African American GFR (CKD) 63 (>60 ml/min/1.73 sqM); Albumin 3.2 g/dL (3.5-5.0); Alkaline Phosphatase 123 U/L (38-126); Anion Gap 7 mmol/L; Blood Urea Nitrogen 26 mg/dL (7-17); Calcium 8.5 mg/dL (8.4-10.2); Carbon Dioxide 27 mmol/L (22-30); Chloride 102 mmol/L (98-107); Glucose 135 mg/dL (74-99); Non-African American GFR(CKD) 54 (>60 ml/min/1.73 sqM); Potassium 4.2 mmol/L (3.5-5.1); Sodium 136 mmol/L (137-145); Total Bilirubin 0.4 mg/dL (0.2-1.3)
[2022-09-17 04:21] LABS: Lipase 3788 U/L (23-300)
[2022-09-17 06:34] LABS: Glucose,Whole Blood 136 mg/dL (70-110)
[2022-09-17] MEDS: LEVOTHYROXINE 75 MCG TAB PO SCH (06:42)
[2022-09-17] MEDS: INSULIN ASPART (NovoLOG) 100 UNIT/ML VIAL SQ SCH ×4 (06:45→21:00)
[2022-09-17] MEDS: FORMOTEROL FUMARATE 20 MCG/2 ML NEBU INHALATION SCH ×2 (08:06→20:05)
[2022-09-17] MEDS: BUDESONIDE 0.5 MG/2 ML NEBU INHALATION SCH ×2 (08:06→20:05)
[2022-09-17] MEDS: IPRATROPIUM-ALBUTEROL 3 ML NEB INHALATION SCH ×4 (08:06→20:05)
[2022-09-17] MEDS: PANTOPRAZOLE 40 MG/10 ML VIAL IV SCH (08:30)
[2022-09-17] MEDS: ENOXAPARIN 40 MG/0.4 ML SYRINGE SQ SCH (08:30)
[2022-09-17] MEDS: MULTIVITAMINS, THERA 1 EACH TAB PO SCH (08:30)
[2022-09-17] MEDS: guaiFENesin 600 MG TABLET.ER PO SCH ×2 (08:30→20:50)
[2022-09-17] MEDS: GABAPENTIN 100 MG CAP PO SCH ×3 (08:30→20:50)
[2022-09-17] MEDS: LOSARTAN 50 MG TAB PO SCH (08:30)
[2022-09-17] MEDS: VENLAFAXINE HCL ER 75 MG CAP PO SCH ×2 (08:30→20:51)
[2022-09-17] MEDS: CLOPIDOGREL 75 MG TAB PO SCH (08:30)
[2022-09-17] MEDS: TOPIRAMATE 25 MG TAB PO SCH (08:31)
[2022-09-17] MEDS: METOPROLOL TARTRATE 25 MG TAB PO SCH ×2 (08:31→20:49)
[2022-09-17] MEDS: SUCRALFATE 1 GM TAB PO SCH ×2 (08:33→21:43)
[2022-09-17] MEDS: traMADol 50 MG TAB PO PRN (08:39)
--- NOTE | 2022-09-17 08:48 | XR ---
EXAMINATION TYPE: XR chest 1V portable DATE OF EXAM: 09/17/2022 COMPARISON: 09/16/2022 INDICATION: COPD TECHNIQUE: Single frontal view of the chest is obtained. FINDINGS: The heart size is normal. The pulmonary vasculature is normal. The lungs are clear. Previous right lower lobe atelectasis has resolved IMPRESSION: 1. No acute pulmonary process.
[2022-09-17] MEDS ORDERED: LOSARTAN 50 MG TAB PO SCH (09:00)
[2022-09-17 09:13] LABS: Chol/HDL Ratio 3.57 Ratio; LDL Cholesterol,Calculated 82.2 mg/dL (0.0-131.0)
[2022-09-17] MEDS ORDERED: IOPAMIDOL CONTRAST (ORAL USE) VIAL PO PRN (09:15)
--- NOTE | 2022-09-17 09:17 | P.PN ---
Subjective Progress Note Date: 09/17/22 62-year-old female patient, presented to the emergency department because of progressive dyspnea for approximately a week. She has been seen in our office will worsening shortness of breath and she was diagnosed having an acute COPD exacerbation/tracheal bronchitis and the patient was given a course of doxycycline and a prednisone burst taper. Nevertheless, her condition decompensated and the patient ended up coming into the emergency department with increase shortness of breath. The patient was in significant respiratory distress. She was immediately placed on a BiPAP at a pressure of 12/5 cm of water. Initial blood gases were poor and the patient a pH of 7.24 with a pCO2 of 46. This could have been potentially intravenous sample also. Nevertheless, her condition progressively improved and the patient became less labored while on the BiPAP. At this point in time, she is communicating. She is alert. She feels that her breathing is improved. She is still actively bronchospastic and wheezy. Lactic acid is being monitored and the level was high at 3.4 and the patient was given a total of 2 L of IV fluids. As of the blood work is within normal limits. CBC within normal limits. The d-dimer was 0.66. CT angiogram showed no acute abnormalities. No evidence of any pulmonary embolism. No evidence of any pneumonias. The patient has a negative Covid 19 influenza and RSV screening test. She is known to have multiple medical problems. She is known to have coronary artery disease and she has undergone single-vessel bypass surgery, she has fibromyalgia, hyperlipidemia, Sjogren's disease, hyperlipidemia, hypothyroidism, and she has a previous history of smoking and she is not actively smoking at this point in time. She also has previous history of seizure disorder. She has undergone previous vascular intervention angioplasty and stenting to the SFA as the patient is also known to have peripheral vascular disease and claudication. 09/15/2022, I'm seeing the patient for a follow-up. The patient was seen in the emergency department the patient got moved to the intensive care unit. Overnight, the patient was kept on a BiPAP. She was given brief episodes of the BiPAP yet she still very much BiPAP dependent as the patient is still bronchospastic and wheezy and she continues to have limited air entry bilaterally. She is on a BiPAP at a pressure of 12/5. She generating a tidal volume of 400 with a rate of 25 and a minute ventilation of 10. She is on FiO2 of 40%. Overnight, she became anxious and hypotensive. I started on Precedex which is currently running at 0.3 mcg/kg/h. This has calmed her significantly and made her more synchronous with the BiPAP machine. She was able to get a IV line in the left upper extremity. WBC count today's at 6.6 with a hemoglobin of 11.4. BUN is at 16 with a creatinine of 0.8 and a sodium level is at 135. Lactic acid level dropped down to 1.6. Troponin was 0.01, 0.08 and 0.09 respectively. The patient is awake and alert and communicating. She is on DuoNeb updrafts. She is on Pulmicort and Perforomist and blood treatments. She remains on IV Solu-Medrol. Outpatient medications have been resumed. 09/16/2022, the patient remains on BiPAP. She was given episodes off the BiPAP yesterday where she was able to tolerate and she was placed back on a BiPAP. Earlier this morning, she was looking great and she was taken off the Precedex also. Subsequently, she became very anxious off the Precedex and the patient showed up her blood pressure and her heart rate. The medication was restarted and the patient is currently on Precedex at 0.2 mcg/kg/h. Chest x-ray findings are unchanged. She was placed back on a BiPAP at a pressure of 12.5 cm of water with an FiO2 of 40%. She remains bronchodilators and steroids. There is improvement in air entry on today's lung examination. She'll be offered some soft diet. The white cell count of 7.6 with a hemoglobin of 11, BUN is at 20 with a creatinine of 0.9. Sodium level is at 139. Awake and alert and communicating. is at the bedside. Patient of 09/17/2022, the patient is still complaining of abdominal pain. This abdominal pain started yesterday and further investigation the other than the patient is having an acute pancreatitis. Unfortunately, the lipase still is on the rise. Based on the most recent labs, the lipase came from 2661 up to 3788. As far as the rest of LFTs, the patient has an AST of 149, ALP of 99 and an alkaline phosphatase of 123. She is post cholecystectomy. Ultrasound of the liver and the right upper quadrant was done yesterday and it showed that the patient has surgically absent gallbladder. There was evidence of sonographic Rojas sign. Common bile duct was within normal limits and there was no e vidence of choledocholithiasis. The ultrasound the abdomen was essentially unremarkable. The patient is currently on Dilaudid at a dose of 1 mg every 3 hours for pain control. Fortunately, her anxiety levels improved. She remains on Precedex at 0.2 mcg/kg/h. At same time the patient was started on BuSpar yesterday in combination with Effexor and she takes trazodone at nighttime. That overall respiratory status is also improved. She is obviously less bronchospastic and wheezy on a combination of bronchodilators and steroids. She was taken off the BiPAP. In fact, the patient is currently on room air oxygen with a pulse ox of 91%. IV fluids are running at 50 mL an hour. She was having some signs of fluid overload yesterday. Her ejection fraction is around 35% and she was given a dose of Lasix yesterday with excellent urine output. She produces at least 1 L of urine output yesterday. Subsequently, she was placed back on 75 mL an hour of normal saline. On today's blood work, the patient's CBC shows a hemoglobin of 11.6 and a white cell count of 15. Platelet count is at 249. Blood gas from yesterday was noted. The patient was taken off the BiPAP. BUN is at 26 with a creatinine of 1.1 and his sodium levels of 138. Objective - Vital Signs Vital signs: Vital Signs Temp 97.5 F L 09/17/22 04:00 Pulse 70 09/17/22 08:29 Resp 15 09/17/22 07:00 BP 158/87 09/17/22 07:00 Pulse Ox 90 L 09/17/22 07:00 FiO2 4 09/16/22 14:00 Intake & Output 09/16/22 09/17/22 09/17/22 18:59 06:59 18:59 Intake Total 684.247 616.967 50 Output Total 1250 550 Balance -565.753 66.967 50 Weight 58.6 kg Intake: IV 520 600 50 IV Fluid 520 600 50 Intake, IV Titration 44.247 16.967 Amount Dexmedetomidine/0.9% NaCl 44.247 16.967 (Pmx) 400 mcg In Empty Bag 1 bag @ 0.2 MCG/KG/HR 2.744 mls/hr IV .Q24H [facility] Rx#:[id number] Oral 120 Output: Urine 1250 550 Other: Voiding Method Bedside Commode Bedside Commode # Voids 1 # Bowel Movements 1 - Exam The patient is still having is comfortable in terms of her breathing and currently she is on room air oxygen pH is complaining of abdominal pain. Head exam was generally normal. There was no scleral icterus or corneal arcus. Mucous membranes were moist. Neck was supple and without jugular venous distension, thyromegaly, or carotid bruits. Carotids were easily palpable bilaterally. There was no adenopathy. Lungs although the medicine the patient has diffuse and scattered expiratory wheezes throughout the lungs bilaterally. The patient has also prolongation of the exhalation phase of breathing. Cardiac exam revealed the PMI to be normally situated and sized. The rhythm was regular and no extrasystoles were noted during several minutes of auscultation. The first and second heart sounds were normal and physiologic splitting of the second heart sound was noted. There were no murmurs, rubs, clicks, or gallops. The patient has a thoracotomy scar over the anterior chest Abdominal exam revealed normal bowel sounds. The abdomen was soft, non-tender, and without masses, organomegaly, or appreciable enlargement of the abdominal aorta. The patient has diffuse abdominal tenderness. Examination of the extremities revealed easily palpable radial, femoral and pedal pulses. There was no cyanosis, clubbing or edema. Examination of the skin revealed no evidence of significant rashes, suspicious appearing nevi or other concerning lesions. Neurologically, the patient is awake and alert and the patient does not have any focal neurological deficit. Cranial nerves are essentially intact. - Labs CBC & Chem 7: 09/17/22 03:19 09/17/22 03:19 Labs: Abnormal Lab Results - Last 24 Hours (Table) 09/16/22 09/16/22 09/16/22 Range/Units 04:21 13:27 14:45 WBC (3.8-10.6) k/uL RBC (3.80-5.40) m/uL ABG pH 7.14 L* (7.35-7.45) ABG pCO2 54 H (35-45) mmHg ABG pO2 139 H (83-108) mmHg ABG HCO3 19 L (21-25) mmol/L ABG O2 Saturation 97.5 H (94-97) % Sodium (137-145) mmol/L BUN (7-17) mg/dL Creatinine (0.52-1.04) mg/dL Glucose (74-99) mg/dL POC Glucose (mg/dL) (70-110) mg/dL AST (14-36) U/L ALT (4-34) U/L Total Protein (6.3-8.2) g/dL Albumin (3.5-5.0) g/dL Lipase 1223 H 2661 H (23-300) U/L 09/16/22 09/16/22 09/17/22 Range/Units 17:45 21:53 03:19 WBC 13.0 H (3.8-10.6) k/uL RBC 3.73 L (3.80-5.40) m/uL ABG pH (7.35-7.45) ABG pCO2 (35-45) mmHg ABG pO2 (83-108) mmHg ABG HCO3 (21-25) mmol/L ABG O2 Saturation (94-97) % Sodium (137-145) mmol/L BUN (7-17) mg/dL Creatinine (0.52-1.04) mg/dL Glucose (74-99) mg/dL POC Glucose (mg/dL) 217 H 121 H (70-110) mg/dL AST (14-36) U/L ALT (4-34) U/L Total Protein (6.3-8.2) g/dL Albumin (3.5-5.0) g/dL Lipase (23-300) U/L 09/17/22 09/17/22 Range/Units 03:19 06:32 WBC (3.8-10.6) k/uL RBC (3.80-5.40) m/uL ABG pH (7.35-7.45) ABG pCO2 (35-45) mmHg ABG pO2 (83-108) mmHg ABG HCO3 (21-25) mmol/L ABG O2 Saturation (94-97) % Sodium 136 L (137-145) mmol/L BUN 26 H (7-17) mg/dL Creatinine 1.10 H (0.52-1.04) mg/dL Glucose 135 H (74-99) mg/dL POC Glucose (mg/dL) 136 H (70-110) mg/dL AST 149 H (14-36) U/L ALT 99 H (4-34) U/L Total Protein 6.0 L (6.3-8.2) g/dL Albumin 3.2 L (3.5-5.0) g/dL Lipase 3788 H (23-300) U/L Microbiology - Last 24 Hours (Table) 09/14/22 14:29 Blood Culture - Preliminary Blood 09/14/22 12:30 Blood Culture - Preliminary Blood Assessment and Plan Plan: Acute exacerbation of COPD, failed outpatient treatment as the patient was given doxycycline and prednisone burst taper on outpatient basis. The patient has symptoms of acute bronchitis she noticed of pneumonia based on the CT angiogram of the chest. No evidence of any pulmonary embolism. Covid 19 testing and the rest of the viral screening was negative. The patient is currently in the intensive care unit , off the BiPAP and she's feeling better and less shortness of breath compared to yesterday. She is on room air oxygen. Acute COPD exacerbation is obviously improving. Acute hypoxic/hypercapnic respiratory failure secondary to above, improved currently on room air oxygen Acute pancreatitis. Noted the patient is post cholecystectomy and the patient's ultrasound of the right upper quadrant that showed a normal common bile ducts. No history of alcoholism. No rule out viral pancreatitis. Rule out hypertriglyceridemia. Lipase level is above 3700. Patient is receiving Dilaudid for pain control. The patient is also on IV fluids normal saline at rate of 75 mL an hour. Acute lactic acidosis secondary to above and the patient has increase work of breathing, given IV fluids and the lactic acid being monitored, the levels improved Shortness of breath secondary to above Increased anxiety and hypertensive reaction and the patient is currently on Precedex drip and this is running at 0.2 microvascular kilogram per hour Coronary artery disease with previous bypass surgery and the patient has undergone a single vessel bypass surgery 2012 with subsequent chronic catheterization stenting Peripheral vascular disease with previous intervention enteroplasty and stenting of the SFA Hypertension Hyperlipidemia Previous history of smoking Fibromyalgia Seizure disorder Hypothyroidism History of migraines History of Sjogren's disease Plan Continue Precedex and titrate the dose Dilaudid for pain control Use Ativan 0.5 mg every 4-6 hours as needed Continue bronchodilators Continue Perforomist and Pulmicort updrafts Continue IV Solu-Medrol to 60 mg every 6 hours and this will continue for another 24 hours Stop the Zithromax and continue the Rocephin for now Continue BiPAP as needed and the patient is currently off BiPAP Monitor lactic acid level, levels improved IV fluids at 75 mL an hour Monitor lipase levels Obtain a general surgery consultation regarding the acute pancreatitis. Obtain a CAT scan of the abdomen/pelvis with oral contrast. Resume all medications Lovenox for prophylaxis Close monitoring in the intensive care unit. Condition remains quite critical. She'll be monitored very closely during the intensive care unit. The is at the bedside. Time with Patient: Greater than 30
[2022-09-17] MEDS: busPIRone HCl 10 MG TAB PO SCH ×2 (11:57→20:50)
--- NOTE | 2022-09-17 12:01 | CT ---
EXAMINATION TYPE: CT abdomen pelvis w con DATE OF EXAM: 09/17/2022 COMPARISON: 10/27/2020, ultrasound 09/16/2022 INDICATION: pancreatitis DLP: 874.3 mGycm, Automated exposure control for dose reduction was used. CONTRAST: 80 mL of Isovue 300. Study performed without Oral Contrast TECHNIQUE: Axial images were obtained from above the diaphragm to the pubic rami in the axial plane a t 5 mm thick sections. Reconstructed images are reviewed on the computer in the coronal plane. FINDINGS: Limited CT sections are obtained the lung bases. The lung bases are clear. CT ABDOMEN: LAP-BAND is evident. Liver: There is moderate fatty infiltration to the liver. Spleen: Normal Pancreas: Some minimal fluid appears to be adjacent to the tail of the pancreas. Inflammatory changes are not identified. No pseudocyst formation or abscess formation identified. Adrenal glands: The adrenal glands are normal. Gallbladder: Normal Kidneys: No masses are evident. No hydronephrosis is present. No cysts are present. Aorta: Vascular calcification is within the aorta. Inferior vena cava: Normal. CT PELVIS: Loops of bowel within the abdomen and pelvis are normal. Studies lateral contrast limiting bowel evaluation. Appendix: Not identified. No dilated tubular structure or inflammatory changes evident. Urinary bladder: Normal. Genitourinary structures: Uterus and ovaries not identified. Osseous structures: No suspicious lytic or sclerotic lesions. IMPRESSIONS: 1. Moderate fatty infiltration liver. 2. Small amount of fluid adjacent to the body and tail of the pancreas. Correlate for acute pancreati tis.
--- NOTE | 2022-09-17 12:25 | P.PN ---
Subjective Progress Note Date: 09/17/22 * 62-year-old lady with past medical history of peripheral arterial disease, COPD, hypertension, hyperlipidemia, recent intervention for critical limb ischemia of left lower extremity with balloon angioplasty of SFA in June 2022 present to the emergency department with complaints of not feeling well for 1 week. Patient had followed up with pulmonary medicine outpatient and was prescribed steroids and antibiotic. Patient says she has been having shortness of breath and generalized fatigue and malaise chest congestion and perfuse diarrhea. Patient also had episode of vomiting. * Time of presentation in ER patient was noted to be in acute distress with significant elevation of blood pressure. Patient was noted to be tachycardic and hypoxic. * Blood was obtained in ER included elevated d-dimer, CT chest was obtained which was negative for pulmonary embolism. Basic metabolic panel showed normal sodium, potassium, normal creatinine, lactic acid of 2.5 follow-up lactate of 3.4 patient was resuscitated with fluid. Patient tested negative for Covid and influenza * Patient was noted to have respiratory distress and was transferred to ICU for further management for COPD exacerbation and sepsis * 09/15: Hospital day 2, patient significant improvement noted. Patient able to have a full conversation and weaned off to room air. Troponins were elevated overnight likely secondary to type II PR. Cardiology consulted as well at bedside QUESTIONS answered. Patient does complain of shortness of breath and cough. Poor IV access with IV noted in lower extremity * 09/16: Patient is improving from respiratory standpoint. Hospital day 3. Did complain of epigastric pain. Lipase ordered x-ray KUB ordered IV pain medications ordered one time we'll follow-up denies of associated nausea. Denies fever. Continue to remain on room air continue to be managed in ICU * 09/17: Patient complained of abdominal pain, noted to have acute pancreatitis, ultrasound abdomen negative, CT abdomen pelvis ordered pending at this time. Continue patient on IV hydration. Patient was seen by critical care team and started on Precedex with significant anxiety as well. We will consult psychiatry Objective - Vital Signs Vital signs: Vital Signs Temp 97.9 F 09/17/22 08:00 Pulse 63 09/17/22 11:35 Resp 10 L 09/17/22 10:00 BP 157/83 09/17/22 10:00 Pulse Ox 92 L 09/17/22 10:00 FiO2 4 09/16/22 14:00 Intake & Output 09/16/22 09/17/22 09/17/22 18:59 06:59 18:59 Intake Total 684.247 616.967 225 Output Total 1250 550 Balance -565.753 66.967 225 Weight 58.6 kg Intake: IV 520 600 225 IV Fluid 520 600 175 cefTRIAXone 1 gm In 50 Sodium Chloride 0.9% 50 ml @ 100 mls/hr IVPB DAILY [facility] Rx#:[id number] Intake, IV Titration 44.247 16.967 Amount Dexmedetomidine/0.9% NaCl 44.247 16.967 (Pmx) 400 mcg In Empty Bag 1 bag @ 0.2 MCG/KG/HR 2.744 mls/hr IV .Q24H [facility] Rx#:[id number] Oral 120 Output: Urine 1250 550 Other: Voiding Method Bedside Commode Bedside Commode Bedside Commode # Voids 1 # Bowel Movements 1 - Exam PHYSICAL EXAMINATION: GENERAL: The patient is alert and oriented x3, ill appearance, HEENT: Pupils are round and equally reacting to light. EOMI. No scleral icterus. No conjunctival pallor. Normocephalic, atraumatic. No pharyngeal erythema. No thyromegaly. CARDIOVASCULAR: S1 and S2 present. No murmurs, rubs, or gallops. PULMONARY: Decreased breath sounds bilaterally ABDOMEN: Soft, mild epigastric tenderness MUSCULOSKELETAL: No joint swelling or deformity. EXTREMITIES: No cyanosis, clubbing, or pedal edema. NEUROLOGICAL: Gross neurological examination did not reveal any focal deficits. SKIN: No rashes. - Labs CBC & Chem 7: 09/17/22 03:19 09/17/22 03:19 Labs: Abnormal Lab Results - Last 24 Hours (Table) 09/16/22 09/16/22 09/16/22 Range/Units 04:21 13:27 14:45 WBC (3.8-10.6) k/uL RBC (3.80-5.40) m/uL ABG pH 7.14 L* (7.35-7.45) ABG pCO2 54 H (35-45) mmHg ABG pO2 139 H (83-108) mmHg ABG HCO3 19 L (21-25) mmol/L ABG O2 Saturation 97.5 H (94-97) % Sodium (137-145) mmol/L BUN (7-17) mg/dL Creatinine (0.52-1.04) mg/dL Glucose (74-99) mg/dL POC Glucose (mg/dL) (70-110) mg/dL Hemoglobin A1c (<=6.0) % AST (14-36) U/L ALT (4-34) U/L Total Protein (6.3-8.2) g/dL Albumin (3.5-5.0) g/dL Triglycerides (0.00-149.00) mg/dL Lipase 1223 H 2661 H (23-300) U/L 09/16/22 09/16/22 09/17/22 Range/Units 17:45 21:53 03:19 WBC (3.8-10.6) k/uL RBC (3.80-5.40) m/uL ABG pH (7.35-7.45) ABG pCO2 (35-45) mmHg ABG pO2 (83-108) mmHg ABG HCO3 (21-25) mmol/L ABG O2 Saturation (94-97) % Sodium (137-145) mmol/L BUN (7-17) mg/dL Creatinine (0.52-1.04) mg/dL Glucose (74-99) mg/dL POC Glucose (mg/dL) 217 H 121 H (70-110) mg/dL Hemoglobin A1c 8.5 H (<=6.0) % AST (14-36) U/L ALT (4-34) U/L Total Protein (6.3-8.2) g/dL Albumin (3.5-5.0) g/dL Triglycerides (0.00-149.00) mg/dL Lipase (23-300) U/L 09/17/22 09/17/22 09/17/22 Range/Units 03:19 03:19 06:32 WBC 13.0 H (3.8-10.6) k/uL RBC 3.73 L (3.80-5.40) m/uL ABG pH (7.35-7.45) ABG pCO2 (35-45) mmHg ABG pO2 (83-108) mmHg ABG HCO3 (21-25) mmol/L ABG O2 Saturation (94-97) % Sodium 136 L (137-145) mmol/L BUN 26 H (7-17) mg/dL Creatinine 1.10 H (0.52-1.04) mg/dL Glucose 135 H (74-99) mg/dL POC Glucose (mg/dL) 136 H (70-110) mg/dL Hemoglobin A1c (<=6.0) % AST 149 H (14-36) U/L ALT 99 H (4-34) U/L Total Protein 6.0 L (6.3-8.2) g/dL Albumin 3.2 L (3.5-5.0) g/dL Triglycerides 165.00 H (0.00-149.00) mg/dL Lipase 3788 H (23-300) U/L Microbiology - Last 24 Hours (Table) 09/14/22 14:29 Blood Culture - Preliminary Blood 09/14/22 12:30 Blood Culture - Preliminary Blood Assessment and Plan Assessment: Assessment and plan * Acute hypoxic hypercapnic respiratory failure acute tracheobronchitis * Acute metabolic encephalopathy * Acute pancreatitis * Peripheral arterial disease recent angioplasty of left SFA * Sepsis * Coronary artery disease * Hypertensive urgency * Elevated troponin secondary to type PR * In regards to acute hypoxic hypercapnic respiratory failure, pulmonary medicine consulted. Continue patient on Rocephin 4/5 , received azithromycin in ED * Continue patient on IV Solu-Medrol, breathing treatments ordered, continue patient on Mucinex, , patient required BiPAP which has been weaned down to nasal cannula now room air * In regards to acute pancreatitis, continue fluid resuscitation, patient made nothing by mouth Will advance diet as tolerated * In regards to peripheral arterial disease continue aspirin, statin, Plavix * In regards to sepsis, patient had elevated lactate levels which improved after hydration continue patient on IV antibiotics blood cultures no growth to date * Regards to elevated troponin, cardiology consulted will follow-up on echocardiogram shows moderately impaired left ventricle systolic function with wall motion abnormality, mild mitral and tricuspid regurgitation noted to ejection fraction 65%. Etiology for elevated troponin type II PR * In regards to generalize anxiety we will consult psychiatry * CODE STATUS is full code
--- NOTE | 2022-09-17 12:38 | PN ---
PROGRESS NOTE SUBJECTIVE: A 62-year-old lady, who is admitted to ICU primarily with abdominal discomfort and respiratory symptoms, also had chest pain for which we have been consulted. I am following her secondary to poorly controlled hypertension. This morning, she is feeling better, respiratory status has improved, however, she has more abdominal discomfort. PHYSICAL EXAMINATION: VITAL SIGNS: Heart rate is 66 beats per minute, blood pressure is 158/87, respiratory rate is 18. CHEST: Reveals diminished air entry at the bases. HEART: Reveals first and second heart sounds. No gallop. ABDOMEN: Soft. EXTREMITIES: Do not reveal any edema. Peripheral pulses are felt. LABORATORY DATA: Labs show that the hemoglobin is 11.6, potassium is 4.2, creatinine is 1.1, AST and ALT are elevated, lipase is elevated at 3788. ASSESSMENT: 1. Ischemic cardiomyopathy. 2. Peripheral arterial disease. 3. Pancreatitis. 4. Coronary artery disease, status post coronary artery bypass grafting. 5. Uncontrolled hypertension. PLAN: She is currently on aspirin and Plavix, which she is going to continue. She is on Zetia, that will be continued. She is on Cozaar 50 mg daily, which I will increase to 100 mg daily, and metoprolol will be continued. MMODL / IJN: [id number] /
[2022-09-17 13:26] LABS: Glucose,Whole Blood 178 mg/dL (70-110)
--- NOTE | 2022-09-17 13:49 | P.GSCN ---
History of Present Illness Consult date: 09/17/22 History of present illness: CHIEF COMPLAINT: Pancreatitis HISTORY OF PRESENT ILLNESS: The patient is a 62 year old female who was admitted for generalized fatigue and weakness. During her hospitalization, patient developed nausea and vomiting with chemistries demonstrating acute pancreatitis. History also obtained from family/friend at bedside. She denies drinking or having her gallbladder. She denies prior event. She denies any new medications; however, she is on active medications that may cause pancreatitis. She reports symptoms for over 1 week. She reports, "I feel hungry." She is enjoying a popsicle. She has mild gasbloat and complains of epigastric pain. She is on dilaudid and taking it scheduled. Chemistries show lipase over 3000. General surgery is consulted for new consultation for acute pancreatitis of unknown etiology. PAST MEDICAL HISTORY: See list and reviewed PAST SURGICAL HISTORY: See list and reviewed MEDICATIONS: See list and reviewed ALLERGIES: See list and reviewed SOCIAL HISTORY: See list and reviewed FAMILY HISTORY: See list and reviewed REVIEW OF ORGAN SYSTEMS: CONSTITUTIONAL: No fevers or chills. No recent weight loss. EYES: Denies any trouble with vision. No glasses. HEENT: No difficulties with hearing. No nosebleeds. No difficulty swallowing. RESPIRATORY: Denies pneumonia. Denies any troubles with breathing or dyspnea on exertion. Has tobacco abuse disorder. CARDIOVASCULAR: Has chest pain and angina. Has hyperlipidemia. Has hypertensive heart disease. History of myocardial infarction. History of CABG. Has heart catheterization and stent placement. Has peripheral vascular disease GASTROINTESTINAL: Denies fatty food intolerance. Denies change in bowel habits and gas bloat. GENITOURINARY: Denies any blood in urine or increased urinary frequency. Has hysterectomy. NEUROLOGICAL: Has fibromyalgia. Has seizure disorder. Has neuropathy. MUSCULOSKELETAL: Has back pain, stiffness or joint arthritis. Has rheumatoid arthritis. Has sarcoidosis SKIN: No current skin cancer. No rash. PSYCHIATRIC: Denies suicidal thoughts. Has depressive disorder. ENDOCRINE: Has hypothyroidism. Denies any blood sugar glucose intolerance. HEME/LYMPHATIC: Denies any lumps and bumps around the neck. No recent deep venous thrombosis. ALLERGY/IMMUNOLOGY: No immunoglobulin therapy. No immune deficiencies. BREAST: Denies current breast lumps, pain or nipple discharge. PHYSICAL EXAM: VITALS: Reviewed CONSTITUTIONAL: Well developed and in no acute distress. EYES: Conjuctivae without sclera icterus. Extraocular movements grossly intact. HEAD, EARS, NOSE, THROAT: Moist buccal mucosa. Head is atraumatic, normocephalic. Hears conversational speech. No nasal drainage. NECK: Supple. No JV distention. No thyroidomegaly. RESPIRATORY: Non-labored respirations and equal bilateral excursions. No gross wheezes. CARDIOVASCULAR: Palpable 2+ radial pulses. ABDOMEN: Epigastric pain no peritonitis. LYMPH: No neck lymphadenopathy. MUSCULOSKELETAL: No clubbing cyanosis or edema SKIN: Warm and well perfused with good skin turgor. NEUROLOGIC: Cranial nerves II through XII grossly intact. No focal or lateralizing signs. PSYCH: Appropriate affect. Alert and oriented to person, place and time. Displays appropriate insight. CLINCAL LABS: Reviewed. WBC elevated from 7.6 to 13.0, leukocytosis. Lipase elevated [id number] IMAGING: Independently reviewed. CT of the abdomen and pelvis independently reviewed demonstrates presence of adjustable gastric band. No ventral hernia. No presence of bowel obstruction. This is my independent interpretation. RADIOLOGY: Report reviewed. CT of the abdomen and pelvis demonstrates fatty liver disease. Fluid near the pancreas with pancreatitis. ASSESSMENT: 1. Acute pancreatitis with epigastric abdominal pain 2. Hypertensive heart disease 3. Leukocytosis 4. Hyperlipidemia 5. Hypothyroidism 6. History of heart catheterization 7. Peripheral vascular occlusive disease 8. Coronary artery disease 9. Fibromyalgia 10. Neuropathy 11. Seizure disorder PLAN: 1. IV fluid hydration. 2. Recommend bowel rest 3. May benefit from TPN for persistent pancreatitis and abdominal pain 4. Will continue to follow 5. Recommend NPO strict status advised for acute pancreatitis ADVANCE DIRECTIVE: Thank you for this kind consultation. Past Medical History Past Medical History: Chest Pain / Angina, Fibromyalgia, Hyperlipidemia, Hypertension, Myocardial Infarction ([place]), Rheumatoid Arthritis ([place]), Seizure Disorder, Thyroid Disorder Additional Past Medical History / Comment(s): Migraines, 1 seizure in 2012, sarcoidosis, raynauds, LLE edema Last Myocardial Infarction Date:: 04/2012 History of Any Multi-Drug Resistant Organisms: None Reported Past Surgical History: Appendectomy, Bariatric Surgery, Cholecystectomy, Coronary Bypass/CABG, Heart Catheterization With Stent, Hysterectomy Additional Past Surgical History / Comment(s): 09/30/20 BILATERAL ARTERIOGRAM AND RUNOFF, partial hysterectomy, right leg angioplasty with stenting October 2021, carpal tunnel surgery bilateral wrists, CABG 2013 1 vessel Past Anesthesia/Blood Transfusion Reactions: No Reported Reaction Additional Past Anesthesia/Blood Transfusion Reaction / Comm: woke up during heart cath Date of Last Stent Placement:: 04/2011 Past Psychological History: Anxiety Smoking Status: Current some day smoker Past Alcohol Use History: None Reported, Rare Additional Past Alcohol Use History / Comment(s): Pt smokes about 1 PPD, has started and stopped smoking multiple times in her life. Past Drug Use History: Marijuana Additional Drug Use History / Comment(s): Marijuana use once a week - Past Family History Mother Family Medical History: Deep Vein Thrombosis (DVT) Additional Family Medical History / Comment(s): Lupus Father Family Medical History: Myocardial Infarction ([place]) Additional Family Medical History / Comment(s): from [place] Medications and Allergies Home Medications Medication Instructions Recorded Confirmed Type Aspirin 325 mg PO HS 07/01/13 10/05/22 History Lovastatin [Mevacor] 40 mg PO HS 07/01/13 10/06/22 History Sucralfate [Carafate] 1 tab PO BID 07/01/13 10/05/22 History traZODone HCL [Desyrel] 100 mg PO HS 07/01/13 10/06/22 History Biotin 5 mg PO DAILY 09/27/20 10/05/22 History Ezetimibe [Zetia] 10 mg PO HS 09/27/20 10/05/22 History Furosemide [Lasix] 20 mg PO QAM 09/27/20 10/05/22 History Multivitamins, Thera [Multivitamin 1 tab PO DAILY 09/27/20 10/05/22 History (formulary)] diphenhydrAMINE [Benadryl] 25 mg PO HS 09/27/20 10/06/22 History Clopidogrel [Plavix] 75 mg PO DAILY #90 tab 10/14/20 10/05/22 Rx Gabapentin [Neurontin] 200 mg PO TID 06/09/22 10/05/22 History traMADol HCl [Ultram] 50 mg PO TID PRN 06/09/22 10/05/22 History Cetirizine HCl [Zyrtec] 10 mg PO DAILY 09/14/22 10/05/22 History Cholecalciferol [Vitamin D3 (25 50 mcg PO DAILY 09/14/22 10/05/22 History Mcg = 1000 Iu)] Levothyroxine Sodium [Synthroid] 75 mcg PO DAILY 09/14/22 10/05/22 History LORazepam [Ativan] 1 mg PO BID PRN 3 Days #6 tab 09/21/22 10/05/22 Rx Losartan [Cozaar] 100 mg PO DAILY #30 tab 09/21/22 10/05/22 Rx Venlafaxine HCl ER [Effexor XR] 150 mg PO HS #30 cap 09/21/22 10/06/22 Rx busPIRone HCl [Buspar] 20 mg PO BID #30 tab 09/21/22 10/05/22 Rx carvediloL [Coreg*] 12.5 mg PO BID-W/MEALS #60 tab 09/21/22 10/05/22 Rx [place]ova-3/Dha/Epa/Fish Oil [Fish Oil 1 each PO DAILY 10/05/22 10/06/22 History 1,000 mg Softgel] Allergies Allergy/AdvReac Type Severity Reaction Status Date / Time Iodinated Contrast Media Allergy hot Verified 10/06/22 11:24 feeling all over w/contrast dye iodine AdvReac very hot Verified 10/06/22 11:24 feeling with IV contrast Dctebhb-CUN-YqP Reductase AdvReac muscle Verified 10/06/22 11:24 Inhibitor pain, [Wrnqesz-Oqu-Xdr Reductase fatigue Inhibitor] Surgical - Exam Vital Signs Temp Pulse Resp BP Pulse Ox 97.9 F 91 20 199/112 95 09/14/22 07:32 09/14/22 07:32 09/14/22 07:32 09/14/22 07:32 09/14/22 07:32 Results - Labs 09/21/22 07:57 09/21/22 07:57 Abnormal Lab Results - Last 24 Hours (Table) 09/16/22 09/16/22 09/16/22 Range/Units 14:45 17:45 21:53 WBC (3.8-10.6) k/uL RBC (3.80-5.40) m/uL Sodium (137-145) mmol/L BUN (7-17) mg/dL Creatinine (0.52-1.04) mg/dL Glucose (74-99) mg/dL POC Glucose (mg/dL) 217 H 121 H (70-110) mg/dL Hemoglobin A1c (<=6.0) % AST (14-36) U/L ALT (4-34) U/L Total Protein (6.3-8.2) g/dL Albumin (3.5-5.0) g/dL Triglycerides (0.00-149.00) mg/dL Lipase 2661 H (23-300) U/L 09/17/22 09/17/22 09/17/22 Range/Units 03:19 03:19 03:19 WBC 13.0 H (3.8-10.6) k/uL RBC 3.73 L (3.80-5.40) m/uL Sodium 136 L (137-145) mmol/L BUN 26 H (7-17) mg/dL Creatinine 1.10 H (0.52-1.04) mg/dL Glucose 135 H (74-99) mg/dL POC Glucose (mg/dL) (70-110) mg/dL Hemoglobin A1c 8.5 H (<=6.0) % AST 149 H (14-36) U/L ALT 99 H (4-34) U/L Total Protein 6.0 L (6.3-8.2) g/dL Albumin 3.2 L (3.5-5.0) g/dL Triglycerides 165.00 H (0.00-149.00) mg/dL Lipase 3788 H (23-300) U/L 09/17/22 09/17/22 Range/Units 06:32 13:24 WBC (3.8-10.6) k/uL RBC (3.80-5.40) m/uL Sodium (137-145) mmol/L BUN (7-17) mg/dL Creatinine (0.52-1.04) mg/dL Glucose (74-99) mg/dL POC Glucose (mg/dL) 136 H 178 H (70-110) mg/dL Hemoglobin A1c (<=6.0) % AST (14-36) U/L ALT (4-34) U/L Total Protein (6.3-8.2) g/dL Albumin (3.5-5.0) g/dL Triglycerides (0.00-149.00) mg/dL Lipase (23-300) U/L Microbiology - Last 24 Hours (Table) 09/14/22 14:29 Blood Culture - Preliminary Blood 09/14/22 12:30 Blood Culture - Preliminary Blood Diabetes panel 09/16/22 09/17/22 09/17/22 Range/Units 17:35 03:19 03:19 Sodium 136 L (137-145) mmol/L Potassium 3.7 4.2 (3.5-5.1) mmol/L Chloride 102 (98-107) mmol/L Carbon Dioxide 27 (22-30) mmol/L BUN 26 H (7-17) mg/dL Creatinine 1.10 H (0.52-1.04) mg/dL Glucose 135 H (74-99) mg/dL Hemoglobin A1c 8.5 H (<=6.0) % Calcium 8.5 (8.4-10.2) mg/dL AST 149 H (14-36) U/L ALT 99 H (4-34) U/L Alkaline Phosphatase 123 (38-126) U/L Total Protein 6.0 L (6.3-8.2) g/dL Albumin 3.2 L (3.5-5.0) g/dL Triglycerides 165.00 H (0.00-149.00) mg/dL HDL Cholesterol 44.80 (40.00-60.00) mg/dL Calcium panel 09/17/22 Range/Units 03:19 Calcium 8.5 (8.4-10.2) mg/dL Albumin 3.2 L (3.5-5.0) g/dL Pituitary panel 09/16/22 09/17/22 Range/Units 17:35 03:19 Sodium 136 L (137-145) mmol/L Potassium 3.7 4.2 (3.5-5.1) mmol/L Chloride 102 (98-107) mmol/L Carbon Dioxide 27 (22-30) mmol/L BUN 26 H (7-17) mg/dL Creatinine 1.10 H (0.52-1.04) mg/dL Glucose 135 H (74-99) mg/dL Calcium 8.5 (8.4-10.2) mg/dL Adrenal panel 09/16/22 09/17/22 Range/Units 17:35 03:19 Sodium 136 L (137-145) mmol/L Potassium 3.7 4.2 (3.5-5.1) mmol/L Chloride 102 (98-107) mmol/L Carbon Dioxide 27 (22-30) mmol/L BUN 26 H (7-17) mg/dL Creatinine 1.10 H (0.52-1.04) mg/dL Glucose 135 H (74-99) mg/dL Calcium 8.5 (8.4-10.2) mg/dL Total Bilirubin 0.3 0.4 (0.2-1.3) mg/dL AST 149 H (14-36) U/L ALT 99 H (4-34) U/L Alkaline Phosphatase 123 (38-126) U/L Total Protein 6.0 L (6.3-8.2) g/dL Albumin 3.2 L (3.5-5.0) g/dL
[2022-09-17 16:35] LABS: Glucose,Whole Blood 133 mg/dL (70-110)
[2022-09-17] MEDS: ASPIRIN 325 MG TAB PO SCH (20:50)
[2022-09-17] MEDS: EZETIMIBE 10 MG TAB PO SCH (20:50)
[2022-09-17 21:00] LABS: Glucose,Whole Blood 143 mg/dL (70-110)
[2022-09-17] MEDS: traZODone HCL 100 MG TAB PO SCH (21:43)
[2022-09-18] MEDS: methylPREDNISolone SOD SUCCI 125 MG/2 ML VIAL IV SCH ×4 (00:29→18:39)
[2022-09-18] MEDS: HYDROmorphone 1 MG/ML 1 ML SYRINGE IVP PRN ×5 (00:30→21:06)
[2022-09-18] MEDS: DEXMEDETOMIDINE/0.9% NACL(PMX) 400 MCG in EMPTY BAG 1 BAG IV SCH ×2 (00:31→22:46)
[2022-09-18] MEDS ORDERED: METOPROLOL TARTRATE 25 MG TAB PO STA ×2 (02:15→06:36)
[2022-09-18] MEDS ORDERED: amLODIPine 10 MG TAB PO STA (02:18)
[2022-09-18 04:04] LABS: HCT 35.2 % (34.0-46.0); HGB 11.4 gm/dL (11.4-16.0); MCH 31.5 pg (25.0-35.0); MCHC 32.4 g/dL (31.0-37.0); MCV 97.2 fL (80.0-100.0); Mean Platelet Volume 8.8; Platelet Count 221 k/uL (150-450); RBC 3.62 m/uL (3.80-5.40); RDW 12.8 % (11.5-15.5); WBC 9.8 k/uL (3.8-10.6)
[2022-09-18 04:09] LABS: ALT 90 U/L (4-34); AST 107 U/L (14-36); African American GFR (CKD) 68 (>60 ml/min/1.73 sqM); Albumin 3.2 g/dL (3.5-5.0); Alkaline Phosphatase 119 U/L (38-126); Anion Gap 7 mmol/L; Blood Urea Nitrogen 25 mg/dL (7-17); Calcium 8.6 mg/dL (8.4-10.2); Carbon Dioxide 26 mmol/L (22-30); Chloride 103 mmol/L (98-107); Glucose 129 mg/dL (74-99); Lipase 1038 U/L (23-300); Non-African American GFR(CKD) 59 (>60 ml/min/1.73 sqM); Potassium 4.5 mmol/L (3.5-5.1); Sodium 136 mmol/L (137-145); Total Bilirubin 0.4 mg/dL (0.2-1.3); Total Protein 5.8 g/dL (6.3-8.2)
[2022-09-18] MEDS: LEVOTHYROXINE 75 MCG TAB PO SCH (06:27)
[2022-09-18] MEDS: SODIUM CHLORIDE 0.9% 1,000 ML IV SCH ×2 (06:41→22:45)
[2022-09-18 06:53] LABS: Glucose,Whole Blood 133 mg/dL (70-110)
[2022-09-18] MEDS: FORMOTEROL FUMARATE 20 MCG/2 ML NEBU INHALATION SCH ×2 (08:01→21:15)
[2022-09-18] MEDS: BUDESONIDE 0.5 MG/2 ML NEBU INHALATION SCH ×2 (08:01→21:15)
[2022-09-18] MEDS: IPRATROPIUM-ALBUTEROL 3 ML NEB INHALATION SCH ×4 (08:01→21:15)
[2022-09-18] MEDS: INSULIN ASPART (NovoLOG) 100 UNIT/ML VIAL SQ SCH ×4 (08:14→22:46)
[2022-09-18] MEDS: SUCRALFATE 1 GM TAB PO SCH ×2 (08:17→22:44)
[2022-09-18] MEDS: busPIRone HCl 10 MG TAB PO SCH ×2 (08:18→22:45)
[2022-09-18] MEDS: guaiFENesin 600 MG TABLET.ER PO SCH ×2 (08:18→22:44)
[2022-09-18] MEDS: CLOPIDOGREL 75 MG TAB PO SCH (08:18)
[2022-09-18] MEDS: MULTIVITAMINS, THERA 1 EACH TAB PO SCH (08:18)
[2022-09-18] MEDS: GABAPENTIN 100 MG CAP PO SCH ×3 (08:18→22:44)
[2022-09-18] MEDS: PANTOPRAZOLE 40 MG/10 ML VIAL IV SCH (08:18)
[2022-09-18] MEDS: ENOXAPARIN 40 MG/0.4 ML SYRINGE SQ SCH (08:18)
[2022-09-18] MEDS: LOSARTAN 50 MG TAB PO SCH (08:19)
[2022-09-18] MEDS: METOPROLOL TARTRATE 25 MG TAB PO SCH ×2 (08:19→22:44)
[2022-09-18] MEDS: VENLAFAXINE HCL ER 75 MG CAP PO SCH ×2 (08:19→23:05)
[2022-09-18] MEDS: amLODIPine 10 MG TAB PO SCH (08:19)
[2022-09-18] MEDS: traMADol 50 MG TAB PO PRN ×2 (08:37→16:09)
[2022-09-18 11:37] LABS: Glucose,Whole Blood 149 mg/dL (70-110)
[2022-09-18] MEDS ORDERED: LORazepam 2 MG/ML INJ IV PRN (13:46)
--- NOTE | 2022-09-18 13:47 | P.PN ---
Subjective Progress Note Date: 09/18/22 Principal diagnosis: Acute hypoxic and hypercapnic respiratory failure secondary to COPD exacerbation and acute pancreatitis 62-year-old female patient, presented to the emergency department because of progressive dyspnea for approximately a week. She has been seen in our office will worsening shortness of breath and she was diagnosed having an acute COPD exacerbation/tracheal bronchitis and the patient was given a course of doxycycline and a prednisone burst taper. Nevertheless, her condition decompensated and the patient ended up coming into the emergency department with increase shortness of breath. The patient was in significant respiratory distress. She was immediately placed on a BiPAP at a pressure of 12/5 cm of water. Initial blood gases were poor and the patient a pH of 7.24 with a pCO2 of 46. This could have been potentially intravenous sample also. Nevertheless, her condition progressively improved and the patient became less labored while on the BiPAP. At this point in time, she is communicating. She is alert. She feels that her breathing is improved. She is still actively bronchospastic and wheezy. Lactic acid is being monitored and the level was high at 3.4 and the patient was given a total of 2 L of IV fluids. As of the blood work is within normal limits. CBC within normal limits. The d-dimer was 0.66. CT angiogram showed no acute abnormalities. No evidence of any pulmonary embolism. No evidence of any pneumonias. The patient has a negative Covid 19 influenza and RSV screening test. She is known to have multiple medical problems. She is known to have coronary artery disease and she has undergone single-vessel bypass surgery, she has fibromyalgia, hyperlipidemia, Sjogren's disease, hyperlipidemia, hypothyroidism, and she has a previous history of smoking and she is not actively smoking at this point in time. She also has previous history of seizure disorder. She has undergone previous vascular intervention ang ioplasty and stenting to the SFA as the patient is also known to have peripheral vascular disease and claudication. 09/15/2022, I'm seeing the patient for a follow-up. The patient was seen in the emergency department the patient got moved to the intensive care unit. Overnight, the patient was kept on a BiPAP. She was given brief episodes of the BiPAP yet she still very much BiPAP dependent as the patient is still bronchospastic and wheezy and she continues to have limited air entry bilateral ly. She is on a BiPAP at a pressure of 12/5. She generating a tidal volume of 400 with a rate of 25 and a minute ventilation of 10. She is on FiO2 of 40%. Overnight, she became anxious and hypotensive. I started on Precedex which is currently running at 0.3 mcg/kg/h. This has calmed her significantly and made her more synchronous with the BiPAP machine. She was able to get a IV line in the left upper extremity. WBC count today's at 6.6 with a hemoglobin of 11.4. BUN is at 16 with a creatinine of 0.8 and a sodium level is at 135. Lactic acid level dropped down to 1.6. Troponin was 0.01, 0.08 and 0.09 respectively. The patient is awake and alert and communicating. She is on DuoNeb updrafts. She is on Pulmicort and Perforomist and blood treatments. She remains on IV Solu-Medrol. Outpatient medications have been resumed. 09/16/2022, the patient remains on BiPAP. She was given episodes off the BiPAP yesterday where she was able to tolerate and she was placed back on a BiPAP. Earlier this morning, she was looking great and she was taken off the Precedex also. Subsequently, she became very anxious off the Precedex and the patient showed up her blood pressure and her heart rate. The medication was restarted and the patient is currently on Precedex at 0.2 mcg/kg/h. Chest x-ray findings are unchanged. She was placed back on a BiPAP at a pressure of 12.5 cm of water with an FiO2 of 40%. She remains bronchodilators and steroids. There is improvement in air entry on today's lung examination. She'll be offered some soft diet. The white cell count of 7.6 with a hemoglobin of 11, BUN is at 20 with a creatinine of 0.9. Sodium level is at 139. Awake and alert and communicating. is at the bedside. Patient of 09/17/2022, the patient is still complaining of abdominal pain. This abdominal pain started yesterday and further investigation the other than the patient is having an acute pancreatitis. Unfortunately, the lipase still is on the rise. Based on the most recent labs, the lipase came from 2661 up to 3788. As far as the rest of LFTs, the patient has an AST of 149, ALP of 99 and an alkaline phosphatase of 123. She is post cholecystectomy. Ultrasound of the liver and the right upper quadrant was done yesterday and it showed that the p atfelisa has surgically absent gallbladder. There was evidence of sonographic Rojas sign. Common bile duct was within normal limits and there was no evidence of choledocholithiasis. The ultrasound the abdomen was essentially unremarkable. The patient is currently on Dilaudid at a dose of 1 mg every 3 hours for pain control. Fortunately, her anxiety levels improved. She remains on Precedex at 0.2 mcg/kg/h. At same time the patient was started on BuSpar yesterday in combination with Effexor and she takes trazodone at nighttime. That overall respiratory status is also improved. She is obviously less bronchospastic and wheezy on a combination of bronchodilators and steroids. She was taken off the BiPAP. In fact, the patient is currently on room air oxygen with a pulse ox of 91%. IV fluids are running at 50 mL an hour. She was having some signs of fluid overload yesterday. Her ejection fraction is around 35% and she was given a dose of Lasix yesterday with excellent urine output. She produces at least 1 L of urine output yesterday. Subsequently, she was placed back on 75 mL an hour of normal saline. On today's blood work, the patient's CBC shows a hemoglobin of 11.6 and a white cell count of 15. Platelet count is at 249. Blood gas from yesterday was noted. The patient was taken off the BiPAP. BUN is at 26 with a creatinine of 1.1 and his sodium levels of 138. Patient evaluated today on , patient seems to be comfortable, not in any distress, she is on room air, which had a Precedex was discontinued yesterday. She is receiving Rocephin, patient again does not seem to be uncomfortable, her is at bedside. Lipase seems to be trending down. CBC is relatively normal electrolytes are normal bicarb is 26, liver enzymes are slightly elevated and lipase is down to 1038. Patient is still receiving bronchodilators in the form of albuterol, Perforomist, Pulmicort, ipratropium bromide, and intermittently on BiPAP. Presently on room air. Patient continues to have some discomfort/epigastric discomfort on and off. But on physical examination her abdomen does not seem to be surgical. Objective - Vital Signs Vital signs: Vital Signs Temp 98 F 09/18/22 12:00 Pulse 64 09/18/22 12:01 Resp 12 09/18/22 12:00 BP 150/70 09/18/22 12:00 Pulse Ox 98 09/18/22 12:00 FiO2 4 09/16/22 14:00 Intake & Output 09/17/22 09/18/22 09/18/22 18:59 06:59 18:59 Intake Total 873.203 908.072 550 Output Total 1100 700 Balance 873.203 -191.928 -150 Weight 58.5 kg Intake: IV 825 900 550 IV Fluid 775 900 450 cefTRIAXone 1 gm In 50 100 Sodium Chloride 0.9% 50 ml @ 100 mls/hr IVPB DAILY ANNMARIE Rx#:[id number] Intake, IV Titration 48.203 8.072 Amount Dexmedetomidine/0.9% NaCl 48.203 8.072 (Pmx) 400 mcg In Empty Bag 1 bag @ 0.2 MCG/KG/HR 2.744 mls/hr IV .Q24H ANNMARIE Rx#:[id number] Output: Urine 1100 700 Other: Voiding Method Bedside Commode Bedside Commode Bedside Commode # Voids 1 - Exam Physical Exam: Revealed a 62-year-old female in no distress, on room air Head: Atraumatic normocephalic. HEENT:[Neck is supple.] [No neck masses.] [No thyromegaly.] [No JVD.] Chest: [Diminished breath sound bilaterally no crackles or rhonchi or wheezes Cardiac Exam: [Normal S1 and S2, no S3 gallop, no murmur.] Abdomen: [Soft, nontender, no megaly, no rebound, no guarding, normal bowel sounds.] Extremities: [No clubbing, no edema, no cyanosis.] Neurological Exam: [No focal neurologic deficit.] Alert oriented 3 Psychiatric: Normal mood affect and normal mental status exam. Skin: No rashes - Labs CBC & Chem 7: 09/18/22 03:30 09/18/22 03:30 Labs: Abnormal Lab Results - Last 24 Hours (Table) 09/17/22 09/17/22 09/17/22 Range/Units 14:22 16:33 20:59 RBC (3.80-5.40) m/uL Sodium (137-145) mmol/L BUN (7-17) mg/dL Glucose (74-99) mg/dL POC Glucose (mg/dL) 133 H 143 H (70-110) mg/dL AST (14-36) U/L ALT (4-34) U/L Total Protein (6.3-8.2) g/dL Albumin (3.5-5.0) g/dL Lipase 2592 H (23-300) U/L 09/18/22 09/18/22 09/18/22 Range/Units 03:30 03:30 06:52 RBC 3.62 L (3.80-5.40) m/uL Sodium 136 L (137-145) mmol/L BUN 25 H (7-17) mg/dL Glucose 129 H (74-99) mg/dL POC Glucose (mg/dL) 133 H (70-110) mg/dL AST 107 H (14-36) U/L ALT 90 H (4-34) U/L Total Protein 5.8 L (6.3-8.2) g/dL Albumin 3.2 L (3.5-5.0) g/dL Lipase 1038 H (23-300) U/L 09/18/22 Range/Units 11:34 RBC (3.80-5.40) m/uL Sodium (137-145) mmol/L BUN (7-17) mg/dL Glucose (74-99) mg/dL POC Glucose (mg/dL) 149 H (70-110) mg/dL AST (14-36) U/L ALT (4-34) U/L Total Protein (6.3-8.2) g/dL Albumin (3.5-5.0) g/dL Lipase (23-300) U/L Microbiology - Last 24 Hours (Table) 09/14/22 14:29 Blood Culture - Preliminary Blood 09/14/22 12:30 Blood Culture - Preliminary Blood Assessment and Plan Assessment: Impression: Acute exacerbation of COPD Acute hypoxic/hypercapnic respiratory failure secondary to above Acute pancreatitis Benign essential hypertension, pressure remains relatively high and needs to be better controlled Underlying coronary artery disease with previous CABG Peripheral vessel occlusive disease Dyslipidemia Ex-smoker Fibromyalgia Seizure disorder Sjogren's disease Recommendation: Continue present supportive care measures Continue Dilaudid Continue Ativan as needed Resume blood pressure medications and adjust accordingly Continue bronchodilators and IV Solu-Medrol Continue BiPAP as needed Continue IV fluid at 75 mL per hour Pancreatitis is being addressed by surgery on the case Continue DVT and GI prophylaxis Consider transferring the patient out of the ICU later today once the blood pressure seems to be better controlled We will continue to follow Time with Patient: Less than 30
--- NOTE | 2022-09-18 14:04 | P.CN ---
Psychiatric Consult - . Consult date: 09/18/22 Consult:: 09/18/22 14:02 IDENTIFYING DATA: This patient is a , retired, 62-year-old female with a significant history of sarcoidosis, rheumatoid arthritis, and myocardial infarction who presented to the hospital on 09/14/2022 for shortness of breath HISTORY OF PRESENT ILLNESS: The patient presented to the hospital on 09/14/2022 for shortness of breath. Prior to her presentation the hospital, the patient was prescribed steroids and an antibiotic in order to address her symptoms. Working diagnosis of acute hypoxic hypercapnic respiratory failure secondary to acute tracheobronchitis. Patient experienced respiratory distress and was transferred to the ICU for further management of COPD and sepsis. Psychiatry has been consulted for evaluation of anxiety and panic attacks. Present in the room as the patient's Shilpa Ernandez. Patient is agreeable to having him present for the psychiatric evaluation. The patient reports that she began expressing panic attacks and elevated anxiety since Sunday afternoon. She states that they were precipitated by her shortness of breath. She reports that she was unable to catch her breath due to the COPD/bronchitis which led her to "panic." She describes panic is feeling like she is about to and that she is drowning. She reports that she expresses significant epigastric pain when she is panicking. The panic was alleviated by the administration of Ativan. She reports that the episode lasted approximately 10 minutes. The patient is currently denying any panic attacks prior to this hospitalization. She does report a history of anxiety and has been managed with Effexor for the past 10 years. Regards other mood symptoms, the patient does not report any significant symptoms of depression or bipolar disorder at this time. She reports no anhedonia, hopelessness, helplessness, changes in sleep or appetite. She is vehemently denying any current or past suicidal or homicidal ideation, intention, and/or plan. She reports no history of auditory or visual hallucinations. She denies any history of paranoia or other delusions. She does not endorse any significant history of bipolar disorder and denies any areas of excessive energy, grandiosity, or mood lability. PAST PSYCHIATRIC HISTORY: Patient has a history of anxiety. Her medications are currently Effexor 75 mg by mouth twice a day, trazodone 100 mg by mouth at bedtime, Topamax 50 mg by mouth twice a day, and Neurontin 20 mg by mouth 3 times a day. Patient denies any previous psychiatric hospitalizations. Patient denies any psychiatric outpatient follow-up. Patient denies any history of suicide attempts in the past. PAST MEDICAL HISTORY: Past Medical History: Chest Pain / Angina, Fibromyalgia, Hyperlipidemia, Hypertension, Myocardial Infarction (LA), Rheumatoid Arthritis (RA), Seizure Disorder, Thyroid Disorder Additional Past Medical History / Comment(s): Migraines, 1 seizure in 2012, sarcoidosis, raynauds, LLE edema Last Myocardial Infarction Date:: 04/2012 History of Any Multi-Drug Resistant Organisms: None Reported Past Surgical History: Appendectomy, Bariatric Surgery, Cholecystectomy, Coronary Bypass/CABG, Heart Catheterization With Stent, Hysterectomy Additional Past Surgical History / Comment(s): 09/30/20 BILATERAL ARTERIOGRAM AND RUNOFF, partial hysterectomy, right leg angioplasty with stenting October 2021, carpal tunnel surgery bilateral wrists, CABG 2012 1 vessel Past Anesthesia/Blood Transfusion Reactions: No Reported Reaction Additional Past Anesthesia/Blood Transfusion Reaction / Comment(s): woke up during heart cath Date of Last Stent Placement:: 04/2011 Past Psychological History: Anxiety Smoking Status: Current some day smoker Past Alcohol Use History: None Reported, Rare Additional Past Alcohol Use History / Comment(s): Pt smokes about 1 PPD, has started and stopped smoking multiple times in her life. Past Drug Use History: Marijuana Additional Drug Use History / Comment(s): Marijuana use once a week ALLERGIES: Allergies Allergy/AdvReac Type Severity Reaction Status Date / Time iodine AdvReac very hot Verified 09/14/22 08:50 feeling with IV contrast Kvjvfcv-PGC-GsG Reductase AdvReac muscle Verified 09/14/22 08:50 Inhibitor pain, [Elfaiog-Ahb-Adg Reductase fatigue Inhibitor] CHEMICAL DEPENDENCY HISTORY: The patient was a previous one pack per day tobacco user but quit this past Sunday. She denies any alcohol use. Marijuana once per week as per chart (patient denies any use). She reports no illicit drug use. FAMILY PSYCHIATRIC/SUBSTANCE USE HISTORY: She reports no significant family history of mental illness or substance abuse. SOCIAL HISTORY: Patient was born and raised in [place], [place]. She has been to her Shilpa for 13 years. She has 2 children. She has a bachelor's in social work and was previously employed as a social media content manager. She denies any legal history, jewish affiliation, or service. MENTAL STATUS EXAM: General Appearance: Patient appears to be stated age is alert, pleasant, and cooperative. Patient appears to have fair hygiene and grooming wearing hospital gown with fair eye contact. Behavior: Patient is calmly lying in bed without any agitated behavior. Eye contact is appropriate. Speech: Patient's speech is fluent and nonpressured. Mood/Affect: Patient reports their mood is "doing better", affect is congruent and euthymic Suicidality/Homicidality: Patient does not endorse any suicidal or homicidal ideation, intention, and/or plan. Perceptions: Patient denies any visual hallucinations and denies any auditory hallucinations Though content/process: There is no evidence of any delusional thought content and thought process is linear and goal-directed. Memory and concentration: AOX3, grossly intact for the purposes of this session. 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 The patient is not presenting imminent risk of harm to self or others. She is not overtly manic or psychotic. -The patient was provided with psychoeducation and reflective listening. -Would recommend the following medication changes/additions: Change Ativan to 1 mg IV twice a day when necessary for panic attacks; recommend discharging the patient with Ativan 1 mg by mouth twice a day when necessary for 2 weeks upon discharge -Change Effexor to 150 mg by mouth at bedtime for anxiety and panic Continue BuSpar 20 mg by mouth twice a day for anxiety Continue trazodone 100 mg daily at bedtime for insomnia Continue gabapentin 200 mg by mouth 3 times a day -Psychoeducation and supportive therapy provided to patient. Risks and benefits of pharmacological treatment versus the risks and benefits of nontreatment weighed and discussed. Informed consent discussion held. Common side effects of psychotropics discussed such as, but not limited to headache, GI disturbance, sexual dysfunction, movement disorders, sedation, and orthostatic hypotension. Life threatening and blackbox warnings of prescribed medications also discussed. Potential risks of operating a vehicle or heavy machinery discussed with patient at length. Advised on importance of compliance and a reliable and responsible manner. Patient advised to review FDA consumer labeling of all medications prior to taking. Patient verbalized understanding of potential risks, and agrees with current treatment plan. Patient advised to medically contact physician/emergency personnel if any acute changes in condition occur. -Patient does not require 1:1 sitter. -Recommend outpatient follow-up -Psychiatry will sign off at this point, please contact with any questions. 09/18/22 14:03
--- NOTE | 2022-09-18 14:49 | P.PN ---
Subjective Progress Note Date: 09/18/22 CHIEF COMPLAINT: Pancreatitis HISTORY OF PRESENT ILLNESS: Patient is currently in the ICU. She continues to complain of epigastric abdominal pain. She has a known history of cholecystectomy. Denies any alcohol use. Denies any nausea or vomiting. Reports the pain is about the same. WBC is coming down from 13-9.8. Lipase trending down from 5864-7551. LFTs trending down. Triglyceride 165. Currently nothing by mouth. PHYSICAL EXAM: VITAL SIGNS: Reviewed GENERAL: Well-developed in no acute distress. HEENT: No sclera icterus. Extraocular movements grossly intact. Moist buccal mucosa. Head is atraumatic, normocephalic. Hears conversational speech. No nasal drainage. NECK: Supple without lymphadenopathy. CHEST: Non-labored respirations and equal bilateral excursions. CARDIOVASCULAR: Palpable 2+ radial pulses. ABDOMEN: Soft. Nondistended. Epigastric tenderness MUSCULOSKELETAL: No clubbing or cyanosis. NEUROLOGIC: No focal or lateralizing signs. Cranial nerves II through XII grossly intact. PSYCH: Appropriate affect. Alert and oriented to person, place and time. SKIN: Well perfused. Good skin turgor. ASSESSMENT: 1. Acute pancreatitis 2. Acute COPD exacerbation 3. Hypertension 4. Coronary artery disease with prior CABG PLAN: -Keep patient nothing by mouth -Repeat CMP and lipase in a.m. -Continue IV fluids -Recommend TPN for nutrition support. Unfortunately there is no interventional radiology or vascular surgery available to place PICC line for the TPN -Continue supportive care Physician Building Inspector note has been reviewed by physician. Signing provider agrees with the documented findings, assessment, and plan of care. CHIEF COMPLAINT: Pancreatitis HISTORY OF PRESENT ILLNESS: The patient is a 62 year old female who developed epigastric pain and clinical features of acute pancreatitis. Lipase was elevated up to 3000. She still reports epigastric abdominal pain. REVIEW OF ORGAN SYSTEMS: No fevers or chills. No productive sputum. No chest pain. PHYSICAL EXAM: VITALS: Reviewed CONSTITUTIONAL: Well developed and in no acute distress. EYES: Conjuctivae without sclera icterus. Extraocular movements grossly intact. HEAD, EARS, NOSE, THROAT: Moist buccal mucosa. Head is atraumatic, normocephalic. Hears conversational speech. No nasal drainage. RESPIRATORY: Non-labored respirations and equal bilateral excursions. No gross wheezes. CARDIOVASCULAR: Palpable 2+ radial pulses. ABDOMEN: Epigastric pain no peritonitis. MUSCULOSKELETAL: No clubbing cyanosis or edema SKIN: Warm and well perfused with good skin turgor. NEUROLOGIC: Cranial nerves II through XII grossly intact. No focal or lateralizing signs. PSYCH: Appropriate affect. Alert and oriented to person, place and time. Displays appropriate insight. CLINCAL LABS: Reviewed. WBC elevated from 7.6 to 13.0, down to 9.8. Lipase elevated 1168-9231, decreased to 1038 ASSESSMENT: 1. Acute pancreatitis with epigastric abdominal pain 2. Hypertensive heart disease 3. Leukocytosis 4. Hyperlipidemia 5. Hypothyroidism 6. History of heart catheterization 7. Peripheral vascular occlusive disease 8. Coronary artery disease 9. Fibromyalgia 10. Neuropathy 11. Seizure disorder PLAN: 1. Recommend nothing by mouth with TPN 2. Recommend IV fluids. Objective - Vital Signs Vital signs: Vital Signs Temp 98 F 09/18/22 12:00 Pulse 64 09/18/22 12:01 Resp 12 09/18/22 12:00 BP 150/70 09/18/22 12:00 Pulse Ox 98 09/18/22 12:00 FiO2 4 09/16/22 14:00 Intake & Output 09/17/22 09/18/22 09/18/22 18:59 06:59 18:59 Intake Total 873.203 908.072 550 Output Total 1100 700 Balance 873.203 -191.928 -150 Weight 58.5 kg Intake: IV 825 900 550 IV Fluid 775 900 450 cefTRIAXone 1 gm In 50 100 Sodium Chloride 0.9% 50 ml @ 100 mls/hr IVPB DAILY [facility] Rx#:[id number] Intake, IV Titration 48.203 8.072 Amount Dexmedetomidine/0.9% NaCl 48.203 8.072 (Pmx) 400 mcg In Empty Bag 1 bag @ 0.2 MCG/KG/HR 2.744 mls/hr IV .Q24H [facility] Rx#:[id number] Output: Urine 1100 700 Other: Voiding Method Bedside Commode Bedside Commode Bedside Commode # Voids 1 - Labs CBC & Chem 7: 09/21/22 07:57 09/21/22 07:57 Labs: Abnormal Lab Results - Last 24 Hours (Table) 09/17/22 09/17/22 09/17/22 Range/Units 14:22 16:33 20:59 RBC (3.80-5.40) m/uL Sodium (137-145) mmol/L BUN (7-17) mg/dL Glucose (74-99) mg/dL POC Glucose (mg/dL) 133 H 143 H (70-110) mg/dL AST (14-36) U/L ALT (4-34) U/L Total Protein (6.3-8.2) g/dL Albumin (3.5-5.0) g/dL Lipase 2592 H (23-300) U/L 09/18/22 09/18/22 09/18/22 Range/Units 03:30 03:30 06:52 RBC 3.62 L (3.80-5.40) m/uL Sodium 136 L (137-145) mmol/L BUN 25 H (7-17) mg/dL Glucose 129 H (74-99) mg/dL POC Glucose (mg/dL) 133 H (70-110) mg/dL AST 107 H (14-36) U/L ALT 90 H (4-34) U/L Total Protein 5.8 L (6.3-8.2) g/dL Albumin 3.2 L (3.5-5.0) g/dL Lipase 1038 H (23-300) U/L 09/18/22 Range/Units 11:34 RBC (3.80-5.40) m/uL Sodium (137-145) mmol/L BUN (7-17) mg/dL Glucose (74-99) mg/dL POC Glucose (mg/dL) 149 H (70-110) mg/dL AST (14-36) U/L ALT (4-34) U/L Total Protein (6.3-8.2) g/dL Albumin (3.5-5.0) g/dL Lipase (23-300) U/L Microbiology - Last 24 Hours (Table) 09/14/22 14:29 Blood Culture - Preliminary Blood 09/14/22 12:30 Blood Culture - Preliminary Blood
--- NOTE | 2022-09-18 14:59 | P.PN ---
Subjective Progress Note Date: 09/18/22 SUBJECTIVE: 62-year-old female was admitted to ICU primarily for abdominal discomfort and respiratory distress. She was diagnosed with pancreatitis. Cardiology was consulted for poorly controlled blood pressure and chest pain evaluation. She has been to rule out of acute coronary syndrome with negative ECG and non-elevated Troponins Vitals: BP 154/84 mmHg, heart rate 68 beats a minute, sinus rhythm on telemetry Head: Normocephalic. Eyes: Sclerae nonicteric. Neck: Good carotid upstroke, no bruit, no jugular venous distention. Lungs: Clear to auscultation. Heart: Regular rate and rhythm, S1-S2, no S3, no murmur or rub. Abdomen: Tenderness in the right upper quadrant of abdomen Extremities: No edema, intact distal pulses. LABS: Hemoglobin 11.4, creatinine 1.03 ASSESSMENT: 1. Acute abdominal pain due to pancreatitis 2. Ischemic cardiomyopathy, LVEF 35% 3. Peripheral arterial disease status post prior intervention by Dr. Martinez 4. Coronary artery disease status post CABG 5. Uncontrolled hypertension PLAN: Continue her aspirin, Plavix. She is not on statins due to intolerance. Continue Zetia. Continue losartan 100 mg daily and metoprolol 25 mg twice a day. She was started on amlodipine 10 mg daily. Objective - Vital Signs Vital signs: Vital Signs Temp 98 F 09/18/22 12:00 Pulse 64 09/18/22 12:01 Resp 12 09/18/22 12:00 BP 150/70 09/18/22 12:00 Pulse Ox 98 09/18/22 12:00 FiO2 4 09/16/22 14:00 Intake & Output 09/17/22 09/18/22 09/18/22 18:59 06:59 18:59 Intake Total 873.203 908.072 550 Output Total 1100 700 Balance 873.203 -191.928 -150 Weight 58.5 kg Intake: IV 825 900 550 IV Fluid 775 900 450 cefTRIAXone 1 gm In 50 100 Sodium Chloride 0.9% 50 ml @ 100 mls/hr IVPB DAILY [facility] Rx#:[id number] Intake, IV Titration 48.203 8.072 Amount Dexmedetomidine/0.9% NaCl 48.203 8.072 (Pmx) 400 mcg In Empty Bag 1 bag @ 0.2 MCG/KG/HR 2.744 mls/hr IV .Q24H [facility] Rx#:[id number] Output: Urine 1100 700 Other: Voiding Method Bedside Commode Bedside Commode Bedside Commode # Voids 1 - Labs CBC & Chem 7: 09/18/22 03:30 09/18/22 03:30 Labs: Abnormal Lab Results - Last 24 Hours (Table) 09/17/22 09/17/22 09/17/22 Range/Units 14:22 16:33 20:59 RBC (3.80-5.40) m/uL Sodium (137-145) mmol/L BUN (7-17) mg/dL Glucose (74-99) mg/dL POC Glucose (mg/dL) 133 H 143 H (70-110) mg/dL AST (14-36) U/L ALT (4-34) U/L Total Protein (6.3-8.2) g/dL Albumin (3.5-5.0) g/dL Lipase 2592 H (23-300) U/L 09/18/22 09/18/22 09/18/22 Range/Units 03:30 03:30 06:52 RBC 3.62 L (3.80-5.40) m/uL Sodium 136 L (137-145) mmol/L BUN 25 H (7-17) mg/dL Glucose 129 H (74-99) mg/dL POC Glucose (mg/dL) 133 H (70-110) mg/dL AST 107 H (14-36) U/L ALT 90 H (4-34) U/L Total Protein 5.8 L (6.3-8.2) g/dL Albumin 3.2 L (3.5-5.0) g/dL Lipase 1038 H (23-300) U/L 09/18/22 Range/Units 11:34 RBC (3.80-5.40) m/uL Sodium (137-145) mmol/L BUN (7-17) mg/dL Glucose (74-99) mg/dL POC Glucose (mg/dL) 149 H (70-110) mg/dL AST (14-36) U/L ALT (4-34) U/L Total Protein (6.3-8.2) g/dL Albumin (3.5-5.0) g/dL Lipase (23-300) U/L Microbiology - Last 24 Hours (Table) 09/14/22 14:29 Blood Culture - Preliminary Blood 09/14/22 12:30 Blood Culture - Preliminary Blood
--- NOTE | 2022-09-18 15:58 | P.PN ---
Subjective Progress Note Date: 09/18/22 62-year-old lady with past medical history of peripheral arterial disease, COPD, hypertension, hyperlipidemia, recent intervention for critical limb ischemia of left lower extremity with balloon angioplasty of SFA in June 2022 present to the emergency department with complaints of not feeling well for 1 week. Patient had followed up with pulmonary medicine outpatient and was prescribed steroids and antibiotic. Patient says she has been having shortness of breath and generalized fatigue and malaise chest congestion and perfuse diarrhea. Patient also had episode of vomiting. Time of presentation in ER patient was noted to be in acute distress with significant elevation of blood pressure. Patient was noted to be tachycardic and hypoxic. Blood was obtained in ER included elevated d-dimer, CT chest was obtained which was negative for pulmonary embolism. Basic metabolic panel showed normal sodium , potassium, normal creatinine, lactic acid of 2.5 follow-up lactate of 3.4 patient was resuscitated with fluid. Patient tested negative for Covid and influenza Patient was noted to have respiratory distress and was transferred to ICU for further management for COPD exacerbation and sepsis 09/15: Hospital day 2, patient significant improvement noted. Patient able to have a full conversation and weaned off to room air. Troponins were elevated overnight likely secondary to type II MN. Cardiology consulted as well at bedside QUESTIONS answered. Patient does complain of shortness of breath and cough. Poor IV access with IV noted in lower extremity 09/16: Patient is improving from respiratory standpoint. Hospital day 3. Did complain of epigastric pain. Lipase ordered x-ray KUB ordered IV pain medications ordered one time we'll follow-up denies of associated nausea. Denies fever. Continue to remain on room air continue to be managed in ICU 09/17: Patient complained of abdominal pain, noted to have acute pancreatitis, ultrasound abdomen negative, CT abdomen pelvis ordered pending at this time. Continue patient on IV hydration. Patient was seen by critical care team and started on Precedex with significant anxiety as well. We will consult psychiatry 09/18. Patient seen and examined. Denies any abdominal pain. Patient is very cooperative, answering questions appropriately REVIEW OF SYSTEMS: CONSTITUTIONAL: No fever, no malaise,. CARDIOVASCULAR: No chest pain, no palpitations, no syncope. PULMONARY: No shortness of breath, no cough, GASTROINTESTINAL: No diarrhea, no nausea, no vomiting, no abdominal pain. NEUROLOGICAL: No headaches, no weakness, PHYSICAL EXAMINATION: GENERAL: The patient is alert and oriented x3, not in any acute distress. Well developed, well nourished. HEENT: Pupils are round and equally reacting to light. EOMI. No scleral icterus. No conjunctival pallor. Normocephalic, atraumatic. No pharyngeal erythema. No thyromegaly. CARDIOVASCULAR: S1 and S2 present. No murmurs, rubs, or gallops. PULMONARY: Chest is clear to auscultation, no wheezing or crackles. ABDOMEN: Soft, nontender, nondistended, normoactive bowel sounds. No palpable organomegaly. MUSCULOSKELETAL: No joint swelling or deformity. EXTREMITIES: No cyanosis, clubbing, or pedal edema. NEUROLOGICAL: Gross neurological examination did not reveal any focal deficits. SKIN: No rashes. Assessment and plan Acute hypoxic hypercapnic respiratory failure acute tracheobronchitis * Acute metabolic encephalopathy * Acute pancreatitis * Peripheral arterial disease recent angioplasty of left SFA * Sepsis * Coronary artery disease * Hypertensive urgency * Elevated troponin secondary to type 2 MN * Monitor vital signs Monitor CBC Monitor CMP Continue telemetry monitoring Continue IV Rocephin Continue on Precedex drip Continue IV steroids Continue breathing treatments For peripheral artery disease, continue aspirin, Plavix, statin, Cardiology consulted for elevated troponin, echocardiogram shows moderately impaired left ventricle systolic function with wall motion abnormality, mild mitral and tricuspid regurgitation noted to ejection fraction 65%. Etiology for elevated troponin type II MN Surgery consulted for acute pancreatitis, recommend keeping patient nothing by mouth, pain management Critical care following Labs and medication were reviewed.. Continue same treatment. Continue with symptomatic treatment. Resume home medication. Monitor labs and vitals. DVT and GI prophylaxis. Further recommendations as per clinical course of the patient Dictation was produced using [employer] dictation software. please excuse any grammatical, word or spelling errors. Objective - Vital Signs Vital signs: Vital Signs Temp 96.8 F L 09/18/22 08:00 Pulse 66 09/18/22 09:00 Resp 23 09/18/22 09:00 BP 176/88 09/18/22 09:00 Pulse Ox 95 09/18/22 09:00 FiO2 4 09/16/22 14:00 Intake & Output 09/17/22 09/18/22 09/18/22 18:59 06:59 18:59 Intake Total 873.203 908.072 325 Output Total 1100 200 Balance 873.203 -191.928 125 Weight 58.5 kg Intake: IV 825 900 325 IV Fluid 775 900 225 cefTRIAXone 1 gm In 50 100 Sodium Chloride 0.9% 50 ml @ 100 mls/hr IVPB DAILY [facility] Rx#:[id number] Intake, IV Titration 48.203 8.072 Amount Dexmedetomidine/0.9% NaCl 48.203 8.072 (Pmx) 400 mcg In Empty Bag 1 bag @ 0.2 MCG/KG/HR 2.744 mls/hr IV .Q24H [facility] Rx#:[id number] Output: Urine 1100 200 Other: Voiding Method Bedside Commode Bedside Commode Bedside Commode # Voids 1 - Labs CBC & Chem 7: 09/18/22 03:30 09/18/22 03:30 Labs: Abnormal Lab Results - Last 24 Hours (Table) 09/17/22 09/17/22 09/17/22 Range/Units 13:24 14:22 16:33 RBC (3.80-5.40) m/uL Sodium (137-145) mmol/L BUN (7-17) mg/dL Glucose (74-99) mg/dL POC Glucose (mg/dL) 178 H 133 H (70-110) mg/dL AST (14-36) U/L ALT (4-34) U/L Total Protein (6.3-8.2) g/dL Albumin (3.5-5.0) g/dL Lipase 2592 H (23-300) U/L 09/17/22 09/18/22 09/18/22 Range/Units 20:59 03:30 03:30 RBC 3.62 L (3.80-5.40) m/uL Sodium 136 L (137-145) mmol/L BUN 25 H (7-17) mg/dL Glucose 129 H (74-99) mg/dL POC Glucose (mg/dL) 143 H (70-110) mg/dL AST 107 H (14-36) U/L ALT 90 H (4-34) U/L Total Protein 5.8 L (6.3-8.2) g/dL Albumin 3.2 L (3.5-5.0) g/dL Lipase 1038 H (23-300) U/L 09/18/22 Range/Units 06:52 RBC (3.80-5.40) m/uL Sodium (137-145) mmol/L BUN (7-17) mg/dL Glucose (74-99) mg/dL POC Glucose (mg/dL) 133 H (70-110) mg/dL AST (14-36) U/L ALT (4-34) U/L Total Protein (6.3-8.2) g/dL Albumin (3.5-5.0) g/dL Lipase (23-300) U/L Microbiology - Last 24 Hours (Table) 09/14/22 14:29 Blood Culture - Preliminary Blood 09/14/22 12:30 Blood Culture - Preliminary Blood
[2022-09-18 16:46] LABS: Glucose,Whole Blood 175 mg/dL (70-110)
[2022-09-18 19:53] LABS: Glucose,Whole Blood 171 mg/dL (70-110)
[2022-09-18] MEDS: traZODone HCL 100 MG TAB PO SCH (22:44)
[2022-09-18] MEDS: ASPIRIN 325 MG TAB PO SCH (22:44)
[2022-09-18] MEDS: EZETIMIBE 10 MG TAB PO SCH (22:44)
[2022-09-19] MEDS: HYDROmorphone 1 MG/ML 1 ML SYRINGE IVP PRN ×5 (00:18→21:50)
[2022-09-19] MEDS: methylPREDNISolone SOD SUCCI 125 MG/2 ML VIAL IV SCH ×3 (00:18→12:07)
[2022-09-19 06:05] LABS: Glucose,Whole Blood 197 mg/dL (70-110)
[2022-09-19] MEDS: LEVOTHYROXINE 75 MCG TAB PO SCH (06:23)
[2022-09-19] MEDS: INSULIN ASPART (NovoLOG) 100 UNIT/ML VIAL SQ SCH ×4 (07:04→21:27)
[2022-09-19 07:13] LABS: ALT 69 U/L (4-34); AST 60 U/L (14-36); African American GFR (CKD) >90 (>60 ml/min/1.73 sqM); Albumin 2.7 g/dL (3.5-5.0); Alkaline Phosphatase 105 U/L (38-126); Anion Gap 9 mmol/L; Blood Urea Nitrogen 23 mg/dL (7-17); Calcium 8.3 mg/dL (8.4-10.2); Carbon Dioxide 20 mmol/L (22-30); Chloride 106 mmol/L (98-107); Glucose 174 mg/dL (74-99); Lipase 590 U/L (23-300); Non-African American GFR(CKD) 80 (>60 ml/min/1.73 sqM); Sodium 135 mmol/L (137-145); Total Bilirubin 0.5 mg/dL (0.2-1.3); Total Protein 4.9 g/dL (6.3-8.2)
[2022-09-19] MEDS: IPRATROPIUM-ALBUTEROL 3 ML NEB INHALATION SCH ×4 (07:58→21:35)
[2022-09-19] MEDS: FORMOTEROL FUMARATE 20 MCG/2 ML NEBU INHALATION SCH ×2 (07:58→21:35)
[2022-09-19] MEDS: BUDESONIDE 0.5 MG/2 ML NEBU INHALATION SCH ×2 (07:59→21:35)
[2022-09-19] MEDS: LOSARTAN 50 MG TAB PO SCH (08:10)
[2022-09-19] MEDS: CLOPIDOGREL 75 MG TAB PO SCH (08:10)
[2022-09-19] MEDS: METOPROLOL TARTRATE 25 MG TAB PO SCH (08:10)
[2022-09-19] MEDS: busPIRone HCl 10 MG TAB PO SCH ×2 (08:10→21:21)
[2022-09-19] MEDS: guaiFENesin 600 MG TABLET.ER PO SCH ×2 (08:10→21:22)
[2022-09-19] MEDS: SUCRALFATE 1 GM TAB PO SCH ×2 (08:10→21:21)
[2022-09-19] MEDS: MULTIVITAMINS, THERA 1 EACH TAB PO SCH (08:11)
[2022-09-19] MEDS: traMADol 50 MG TAB PO PRN (08:11)
[2022-09-19] MEDS: ENOXAPARIN 40 MG/0.4 ML SYRINGE SQ SCH (08:11)
[2022-09-19] MEDS: PANTOPRAZOLE 40 MG/10 ML VIAL IV SCH (08:11)
[2022-09-19] MEDS: amLODIPine 10 MG TAB PO SCH (08:11)
[2022-09-19] MEDS: GABAPENTIN 100 MG CAP PO SCH ×3 (08:11→21:21)
[2022-09-19] MEDS ORDERED: carvediloL 6.25 MG TAB PO SCH (09:15)
[2022-09-19 11:52] LABS: Glucose,Whole Blood 148 mg/dL (70-110)
--- NOTE | 2022-09-19 12:02 | P.PN ---
Subjective HISTORY OF PRESENT ILLNESS: 09/18/2022 62-year-old female was admitted to ICU primarily for abdominal discomfort and respiratory distress. She was diagnosed with pancreatitis. Cardiology was consulted for poorly controlled blood pressure and chest pain evaluation. She has been to rule out of acute coronary syndrome with negative ECG and non- elevated Troponins Vitals: BP 154/84 mmHg, heart rate 68 beats a minute, sinus rhythm on telemetry 09/19/2022 Patient examined this morning at the bedside. Patient denies chest pain or pressure. She denies shortness of breath. Denies dizziness or lightheadedness. Reports improvement in her abdominal pain. Blood pressure improved with a recent reading of 156/72. PHYSICAL EXAM: VITAL SIGNS: Reviewed. GENERAL: Well-developed in no acute distress. NECK: Supple. No JVD or thyromegaly LUNGS: Respirations even and unlabored. Lungs essentially clear to auscultation bilaterally. HEART: Regular rate and rhythm. S1 and S2 heard. EXTREMITIES: Normal range of motion. No clubbing or cyanosis. Peripheral pulses intact. No lower extremity edema ASSESSMENT: 1. Acute abdominal pain due to pancreatitis 2. Ischemic cardiomyopathy, LVEF 35% 3. Peripheral arterial disease status post prior intervention by Dr. Martinez 4. Coronary artery disease status post CABG 5. Uncontrolled hypertension PLAN: Continue current cardiac medications Patient intolerant to statin therapy Discontinue amlodipine secondary to cardiomyopathy Discontinue metoprolol. Begin carvedilol 6.25 mg twice a day for a total blood pressure control. Dose may need to be increased to 12.5 mg pending response. Continue to monitor blood pressure Further recommendations pending patient's course Nurse practitioner note has been reviewed by physician. Signing provider agrees with the documented findings, assessment, and plan of care. Objective - Vital Signs Vital signs: Vital Signs Temp 97.8 F 09/19/22 08:10 Pulse 76 09/19/22 08:26 Resp 18 09/19/22 08:10 BP 156/72 09/19/22 08:10 Pulse Ox 97 09/19/22 08:10 FiO2 4 09/16/22 14:00 Intake & Output 09/18/22 09/19/22 09/19/22 18:59 06:59 18:59 Intake Total 925 0 Output Total 1200 Balance -275 0 Weight 56 kg Intake: IV 925 IV Fluid 825 cefTRIAXone 1 gm In 100 Sodium Chloride 0.9% 50 ml @ 100 mls/hr IVPB DAILY [facility] Rx#:[id number] Oral 0 Output: Urine 1200 Other: Voiding Method Bedside Commode Toilet Toilet # Voids 1 1 - Labs CBC & Chem 7: 09/18/22 03:30 09/19/22 06:28 Labs: Abnormal Lab Results - Last 24 Hours (Table) 09/18/22 09/18/22 09/19/22 Range/Units 16:44 19:51 06:03 Sodium (137-145) mmol/L Carbon Dioxide (22-30) mmol/L BUN (7-17) mg/dL Glucose (74-99) mg/dL POC Glucose (mg/dL) 175 H 171 H 197 H (70-110) mg/dL Calcium (8.4-10.2) mg/dL AST (14-36) U/L ALT (4-34) U/L Total Protein (6.3-8.2) g/dL Albumin (3.5-5.0) g/dL Lipase (23-300) U/L 09/19/22 09/19/22 Range/Units 06:28 11:50 Sodium 135 L (137-145) mmol/L Carbon Dioxide 20 L (22-30) mmol/L BUN 23 H (7-17) mg/dL Glucose 174 H (74-99) mg/dL POC Glucose (mg/dL) 148 H (70-110) mg/dL Calcium 8.3 L (8.4-10.2) mg/dL AST 60 H (14-36) U/L ALT 69 H (4-34) U/L Total Protein 4.9 L (6.3-8.2) g/dL Albumin 2.7 L (3.5-5.0) g/dL Lipase 590 H (23-300) U/L
[2022-09-19] MEDS: ONDANSETRON 4 MG/2 ML VIAL IVP PRN ×2 (12:07→18:03)
--- NOTE | 2022-09-19 12:40 | P.PN ---
Subjective Progress Note Date: 09/19/22 Principal diagnosis: Acute hypoxic and hypercapnic respiratory failure secondary to COPD exacerbation and acute pancreatitis 62-year-old female patient, presented to the emergency department because of progressive dyspnea for approximately a week. She has been seen in our office will worsening shortness of breath and she was diagnosed having an acute COPD exacerbation/tracheal bronchitis and the patient was given a course of doxycycline and a prednisone burst taper. Nevertheless, her condition decompensated and the patient ended up coming into the emergency department with increase shortness of breath. The patient was in significant respiratory distress. She was immediately placed on a BiPAP at a pressure of 12/5 cm of water. Initial blood gases were poor and the patient a pH of 7.24 with a pCO2 of 46. This could have been potentially intravenous sample also. Nevertheless, her condition progressively improved and the patient became less labored while on the BiPAP. At this point in time, she is communicating. She is alert. She feels that her breathing is improved. She is still actively bronchospastic and wheezy. Lactic acid is being monitored and the level was high at 3.4 and the patient was given a total of 2 L of IV fluids. As of the blood work is within normal limits. CBC within normal limits. The d-dimer was 0.66. CT angiogram showed no acute abnormalities. No evidence of any pulmonary embolism. No evidence of any pneumonias. The patient has a negative Covid 19 influenza and RSV screening test. She is known to have multiple medical problems. She is known to have coronary artery disease and she has undergone single-vessel bypass surgery, she has fibromyalgia, hyperlipidemia, Sjogren's disease, hyperlipidemia, hypothyroidism, and she has a previous history of smoking and she is not actively smoking at this point in time. She also has previous history of seizure disorder. She has undergone previous vascular intervention ang ioplasty and stenting to the SFA as the patient is also known to have peripheral vascular disease and claudication. 09/15/2022, I'm seeing the patient for a follow-up. The patient was seen in the emergency department the patient got moved to the intensive care unit. Overnight, the patient was kept on a BiPAP. She was given brief episodes of the BiPAP yet she still very much BiPAP dependent as the patient is still bronchospastic and wheezy and she continues to have limited air entry bilateral ly. She is on a BiPAP at a pressure of 12/5. She generating a tidal volume of 400 with a rate of 25 and a minute ventilation of 10. She is on FiO2 of 40%. Overnight, she became anxious and hypotensive. I started on Precedex which is currently running at 0.3 mcg/kg/h. This has calmed her significantly and made her more synchronous with the BiPAP machine. She was able to get a IV line in the left upper extremity. WBC count today's at 6.6 with a hemoglobin of 11.4. BUN is at 16 with a creatinine of 0.8 and a sodium level is at 135. Lactic acid level dropped down to 1.6. Troponin was 0.01, 0.08 and 0.09 respectively. The patient is awake and alert and communicating. She is on DuoNeb updrafts. She is on Pulmicort and Perforomist and blood treatments. She remains on IV Solu-Medrol. Outpatient medications have been resumed. 09/16/2022, the patient remains on BiPAP. She was given episodes off the BiPAP yesterday where she was able to tolerate and she was placed back on a BiPAP. Earlier this morning, she was looking great and she was taken off the Precedex also. Subsequently, she became very anxious off the Precedex and the patient showed up her blood pressure and her heart rate. The medication was restarted and the patient is currently on Precedex at 0.2 mcg/kg/h. Chest x-ray findings are unchanged. She was placed back on a BiPAP at a pressure of 12.5 cm of water with an FiO2 of 40%. She remains bronchodilators and steroids. There is improvement in air entry on today's lung examination. She'll be offered some soft diet. The white cell count of 7.6 with a hemoglobin of 11, BUN is at 20 with a creatinine of 0.9. Sodium level is at 139. Awake and alert and communicating. is at the bedside. Patient of 09/17/2022, the patient is still complaining of abdominal pain. This abdominal pain started yesterday and further investigation the other than the patient is having an acute pancreatitis. Unfortunately, the lipase still is on the rise. Based on the most recent labs, the lipase came from 2661 up to 3788. As far as the rest of LFTs, the patient has an AST of 149, ALP of 99 and an alkaline phosphatase of 123. She is post cholecystectomy. Ultrasound of the liver and the right upper quadrant was done yesterday and it showed that the p atfelisa has surgically absent gallbladder. There was evidence of sonographic Rojas sign. Common bile duct was within normal limits and there was no evidence of choledocholithiasis. The ultrasound the abdomen was essentially unremarkable. The patient is currently on Dilaudid at a dose of 1 mg every 3 hours for pain control. Fortunately, her anxiety levels improved. She remains on Precedex at 0.2 mcg/kg/h. At same time the patient was started on BuSpar yesterday in combination with Effexor and she takes trazodone at nighttime. That overall respiratory status is also improved. She is obviously less bronchospastic and wheezy on a combination of bronchodilators and steroids. She was taken off the BiPAP. In fact, the patient is currently on room air oxygen with a pulse ox of 91%. IV fluids are running at 50 mL an hour. She was having some signs of fluid overload yesterday. Her ejection fraction is around 35% and she was given a dose of Lasix yesterday with excellent urine output. She produces at least 1 L of urine output yesterday. Subsequently, she was placed back on 75 mL an hour of normal saline. On today's blood work, the patient's CBC shows a hemoglobin of 11.6 and a white cell count of 15. Platelet count is at 249. Blood gas from yesterday was noted. The patient was taken off the BiPAP. BUN is at 26 with a creatinine of 1.1 and his sodium levels of 138. Patient evaluated today on , patient seems to be comfortable, not in any distress, she is on room air, which had a Precedex was discontinued yesterday. She is receiving Rocephin, patient again does not seem to be uncomfortable, her is at bedside. Lipase seems to be trending down. CBC is relatively normal electrolytes are normal bicarb is 26, liver enzymes are slightly elevated and lipase is down to 1038. Patient is still receiving bronchodilators in the form of albuterol, Perforomist, Pulmicort, ipratropium bromide, and intermittently on BiPAP. Presently on room air. Patient continues to have some discomfort/epigastric discomfort on and off. But on physical examination her abdomen does not seem to be surgical. Patient was reevaluated today on , patient is doing well, continues to have some vague abdominal discomfort, not in any form of pulmonary distress, patient is doing great overall. Remains on room air, electrolytes are normal and liver enzymes are borderline elevated, lipase is down to 590. Her pancreatitis is is obviously resolving Objective - Vital Signs Vital signs: Vital Signs Temp 97.8 F 09/19/22 08:10 Pulse 76 09/19/22 08:26 Resp 18 09/19/22 08:10 BP 156/72 09/19/22 08:10 Pulse Ox 96 09/19/22 11:30 FiO2 4 09/16/22 14:00 Intake & Output 09/18/22 09/19/22 09/19/22 18:59 06:59 18:59 Intake Total 925 0 Output Total 1200 Balance -275 0 Weight 56 kg Intake: IV 925 IV Fluid 825 cefTRIAXone 1 gm In 100 Sodium Chloride 0.9% 50 ml @ 100 mls/hr IVPB DAILY [facility] Rx#:[id number] Oral 0 Output: Urine 1200 Other: Voiding Method Bedside Commode Toilet Toilet # Voids 1 1 - Exam Physical Exam: Revealed a 62-year-old female in no distress, on room air Head: Atraumatic normocephalic. HEENT:[Neck is supple.] [No neck masses.] [No thyromegaly.] [No JVD.] Chest: [Diminished breath sound bilaterally no crackles or rhonchi or wheezes Cardiac Exam: [Normal S1 and S2, no S3 gallop, no murmur.] Abdomen: [Soft, nontender, no megaly, no rebound, no guarding, normal bowel sounds.] Extremities: [No clubbing, no edema, no cyanosis.] Neurological Exam: [No focal neurologic deficit.] Alert oriented 3 Psychiatric: Normal mood affect and normal mental status exam. Skin: No rashes - Labs CBC & Chem 7: 09/18/22 03:30 09/19/22 06:28 Labs: Abnormal Lab Results - Last 24 Hours (Table) 09/18/22 09/18/22 09/19/22 Range/Units 16:44 19:51 06:03 Sodium (137-145) mmol/L Carbon Dioxide (22-30) mmol/L BUN (7-17) mg/dL Glucose (74-99) mg/dL POC Glucose (mg/dL) 175 H 171 H 197 H (70-110) mg/dL Calcium (8.4-10.2) mg/dL AST (14-36) U/L ALT (4-34) U/L Total Protein (6.3-8.2) g/dL Albumin (3.5-5.0) g/dL Lipase (23-300) U/L 09/19/22 09/19/22 Range/Units 06:28 11:50 Sodium 135 L (137-145) mmol/L Carbon Dioxide 20 L (22-30) mmol/L BUN 23 H (7-17) mg/dL Glucose 174 H (74-99) mg/dL POC Glucose (mg/dL) 148 H (70-110) mg/dL Calcium 8.3 L (8.4-10.2) mg/dL AST 60 H (14-36) U/L ALT 69 H (4-34) U/L Total Protein 4.9 L (6.3-8.2) g/dL Albumin 2.7 L (3.5-5.0) g/dL Lipase 590 H (23-300) U/L Assessment and Plan Assessment: Impression: Acute exacerbation of COPD Acute hypoxic/hypercapnic respiratory failure secondary to above Acute pancreatitis Benign essential hypertension, pressure remains relatively high and needs to be better controlled Underlying coronary artery disease with previous CABG Peripheral vessel occlusive disease Dyslipidemia Ex-smoker Fibromyalgia Seizure disorder Sjogren's disease Recommendation: Continue present supportive care measures Pain medication as per the admitting physician Continue Ativan as needed, patient was seen by psychiatry in consultation for her anxiety and panic attacks. Continue bronchodilators discontinue Solu-Medrol Continue BiPAP as needed Pancreatitis is being addressed by surgery on the case Continue DVT and GI prophylaxis Will follow as needed Time with Patient: Less than 30
--- NOTE | 2022-09-19 13:29 | P.PN ---
Subjective Progress Note Date: 09/19/22 62-year-old lady with past medical history of peripheral arterial disease, COPD, hypertension, hyperlipidemia, recent intervention for critical limb ischemia of left lower extremity with balloon angioplasty of SFA in June 2022 present to the emergency department with complaints of not feeling well for 1 week. Patient had followed up with pulmonary medicine outpatient and was prescribed steroids and antibiotic. Patient says she has been having shortness of breath and generalized fatigue and malaise chest congestion and perfuse diarrhea. Patient also had episode of vomiting. Time of presentation in ER patient was noted to be in acute distress with significant elevation of blood pressure. Patient was noted to be tachycardic and hypoxic. Blood was obtained in ER included elevated d-dimer, CT chest was obtained which was negative for pulmonary embolism. Basic metabolic panel showed normal sodium , potassium, normal creatinine, lactic acid of 2.5 follow-up lactate of 3.4 patient was resuscitated with fluid. Patient tested negative for Covid and influenza Patient was noted to have respiratory distress and was transferred to ICU for further management for COPD exacerbation and sepsis 09/15: Hospital day 2, patient significant improvement noted. Patient able to have a full conversation and weaned off to room air. Troponins were elevated overnight likely secondary to type II MD. Cardiology consulted as well at bedside QUESTIONS answered. Patient does complain of shortness of breath and cough. Poor IV access with IV noted in lower extremity 09/16: Patient is improving from respiratory standpoint. Hospital day 3. Did complain of epigastric pain. Lipase ordered x-ray KUB ordered IV pain medications ordered one time we'll follow-up denies of associated nausea. Denies fever. Continue to remain on room air continue to be managed in ICU 09/17: Patient complained of abdominal pain, noted to have acute pancreatitis, ultrasound abdomen negative, CT abdomen pelvis ordered pending at this time. Continue patient on IV hydration. Patient was seen by critical care team and started on Precedex with significant anxiety as well. We will consult psychiatry 09/18. Patient seen and examined. Denies any abdominal pain. Patient is very cooperative, answering questions appropriately 09/19. Patient seen and examined. States abdominal pain has improved. Family at the bedside, all questions answered REVIEW OF SYSTEMS: CONSTITUTIONAL: No fever, no malaise,. CARDIOVASCULAR: No chest pain, no palpitations, no syncope. PULMONARY: No shortness of breath, no cough, GASTROINTESTINAL: No diarrhea, no nausea, no vomiting, no abdominal pain. NEUROLOGICAL: No headaches, no weakness, PHYSICAL EXAMINATION: GENERAL: The patient is alert and oriented x3, not in any acute distress. Well developed, well nourished. HEENT: Pupils are round and equally reacting to light. EOMI. No scleral icterus. No conjunctival pallor. Normocephalic, atraumatic. No pharyngeal erythema. No thyromegaly. CARDIOVASCULAR: S1 and S2 present. No murmurs, rubs, or gallops. PULMONARY: Chest is clear to auscultation, no wheezing or crackles. ABDOMEN: Soft, nontender, nondistended, normoactive bowel sounds. No palpable organomegaly. MUSCULOSKELETAL: No joint swelling or deformity. EXTREMITIES: No cyanosis, clubbing, or pedal edema. NEUROLOGICAL: Gross neurological examination did not reveal any focal deficits. SKIN: No rashes. Assessment and plan Acute hypoxic hypercapnic respiratory failure acute tracheobronchitis * Acute metabolic encephalopathy * Acute pancreatitis * Peripheral arterial disease recent angioplasty of left SFA * Sepsis * Coronary artery disease * Hypertensive urgency * Elevated troponin secondary to type 2 MD * Monitor vital signs Monitor CBC Monitor CMP Continue telemetry monitoring Complete course of IV antibiotics Continue IV fluids Continue breathing treatments For peripheral artery disease, continue aspirin, Plavix, statin, Cardiology consulted for elevated troponin, recommend medical management Surgery consulted for acute pancreatitis, recommend keeping patient nothing by mouth, pain management Critical care following Labs and medication were reviewed.. Continue same treatment. Continue with symptomatic treatment. Resume home medication. Monitor labs and vitals. DVT and GI prophylaxis. Further recommendations as per clinical course of the patient Dictation was produced using [employer] dictation software. please excuse any grammatical, word or spelling errors. Objective - Vital Signs Vital signs: Vital Signs Temp 97.8 F 09/19/22 08:10 Pulse 76 09/19/22 08:26 Resp 18 09/19/22 08:10 BP 156/72 09/19/22 08:10 Pulse Ox 96 09/19/22 11:30 FiO2 4 09/16/22 14:00 Intake & Output 09/18/22 09/19/22 09/19/22 18:59 06:59 18:59 Intake Total 925 0 Output Total 1200 Balance -275 0 Weight 56 kg Intake: IV 925 IV Fluid 825 cefTRIAXone 1 gm In 100 Sodium Chloride 0.9% 50 ml @ 100 mls/hr IVPB DAILY [facility] Rx#:[id number] Oral 0 Output: Urine 1200 Other: Voiding Method Bedside Commode Toilet Toilet # Voids 1 1 - Labs CBC & Chem 7: 09/18/22 03:30 09/19/22 06:28 Labs: Abnormal Lab Results - Last 24 Hours (Table) 09/18/22 09/18/22 09/19/22 Range/Units 16:44 19:51 06:03 Sodium (137-145) mmol/L Carbon Dioxide (22-30) mmol/L BUN (7-17) mg/dL Glucose (74-99) mg/dL POC Glucose (mg/dL) 175 H 171 H 197 H (70-110) mg/dL Calcium (8.4-10.2) mg/dL AST (14-36) U/L ALT (4-34) U/L Total Protein (6.3-8.2) g/dL Albumin (3.5-5.0) g/dL Lipase (23-300) U/L 09/19/22 09/19/22 Range/Units 06:28 11:50 Sodium 135 L (137-145) mmol/L Carbon Dioxide 20 L (22-30) mmol/L BUN 23 H (7-17) mg/dL Glucose 174 H (74-99) mg/dL POC Glucose (mg/dL) 148 H (70-110) mg/dL Calcium 8.3 L (8.4-10.2) mg/dL AST 60 H (14-36) U/L ALT 69 H (4-34) U/L Total Protein 4.9 L (6.3-8.2) g/dL Albumin 2.7 L (3.5-5.0) g/dL Lipase 590 H (23-300) U/L
[2022-09-19] MEDS: SODIUM CHLORIDE 0.9% 1,000 ML IV SCH (13:49)
--- NOTE | 2022-09-19 14:25 | P.PN ---
Subjective Progress Note Date: 09/19/22 CHIEF COMPLAINT: Pancreatitis HISTORY OF PRESENT ILLNESS: Patient is transferred out of the ICU. She reports she is feeling better her pain has decreased greatly denies any nausea. Her lipase level has come down to 590 LFTs are trending down. Afebrile PHYSICAL EXAM: VITAL SIGNS: Reviewed GENERAL: Well-developed in no acute distress. HEENT: No sclera icterus. Extraocular movements grossly intact. Moist buccal mucosa. Head is atraumatic, normocephalic. Hears conversational speech. No nasal suhail inage. NECK: Supple without lymphadenopathy. CHEST: Non-labored respirations and equal bilateral excursions. CARDIOVASCULAR: Palpable 2+ radial pulses. ABDOMEN: Soft. Nondistended. Nontender MUSCULOSKELETAL: No clubbing or cyanosis. NEUROLOGIC: No focal or lateralizing signs. Cranial nerves II through XII grossly intact. PSYCH: Appropriate affect. Alert and oriented to person, place and time. SKIN: Well perfused. Good skin turgor. ASSESSMENT: 1. Acute pancreatitis 2. Acute COPD exacerbation 3. Hypertension 4. Coronary artery disease with prior CABG PLAN: -Advance diet to clear liquids -Repeat CMP and lipase in a.m. -Continue supportive care Physician Cnc Machine Programmer note has been reviewed by physician. Signing provider agrees with the documented findings, assessment, and plan of care. CHIEF COMPLAINT: Pancreatitis HISTORY OF PRESENT ILLNESS: The patient is a 62 year old female who developed epigastric pain and clinical features of acute pancreatitis. She reports epigastric pain is improving. No nausea and vomiting. REVIEW OF ORGAN SYSTEMS: No fevers or chills. No productive sputum. No chest pain. PHYSICAL EXAM: VITALS: Reviewed CONSTITUTIONAL: Well developed and in no acute distress. EYES: Conjuctivae without sclera icterus. Extraocular movements grossly intact. HEAD, EARS, NOSE, THROAT: Moist buccal mucosa. Head is atraumatic, normocephalic. Hears conversational speech. No nasal drainage. RESPIRATORY: Non-labored respirations and equal bilateral excursions. No gross wheezes. CARDIOVASCULAR: Palpable 2+ radial pulses. ABDOMEN: Epigastric pain no peritonitis. MUSCULOSKELETAL: No clubbing cyanosis or edema SKIN: Warm and well perfused with good skin turgor. NEUROLOGIC: Cranial nerves II through XII grossly intact. No focal or l ateralizing signs. PSYCH: Appropriate affect. Alert and oriented to person, place and time. Displ ays appropriate insight. CLINCAL LABS: Reviewed. Lipase down from over 3000 to 590. LFTs is mildly elevated ASSESSMENT: 1. Acute pancreatitis with epigastric abdominal pain 2. Hypertensive heart disease 3. Leukocytosis 4. Hyperlipidemia 5. Hypothyroidism 6. History of heart catheterization 7. Peripheral vascular occlusive disease 8. Coronary artery disease 9. Fibromyalgia 10. Neuropathy 11. Seizure disorder PLAN: 1. Start oral diet 2. Monitor lipase and CMP Objective - Vital Signs Vital signs: Vital Signs Temp 97.8 F 09/19/22 08:10 Pulse 62 09/19/22 12:00 Resp 16 09/19/22 12:00 BP 159/79 09/19/22 12:00 Pulse Ox 96 09/19/22 12:00 FiO2 4 09/16/22 14:00 Intake & Output 09/18/22 09/19/22 09/19/22 18:59 06:59 18:59 Intake Total 925 0 Output Total 1200 Balance -275 0 Weight 56 kg Intake: IV 925 IV Fluid 825 cefTRIAXone 1 gm In 100 Sodium Chloride 0.9% 50 ml @ 100 mls/hr IVPB DAILY [facility] Rx#:[id number] Oral 0 Output: Urine 1200 Other: Voiding Method Bedside Commode Toilet Toilet # Voids 1 1 - Labs CBC & Chem 7: 09/21/22 07:57 09/21/22 07:57 Labs: Abnormal Lab Results - Last 24 Hours (Table) 09/18/22 09/18/22 09/19/22 Range/Units 16:44 19:51 06:03 Sodium (137-145) mmol/L Carbon Dioxide (22-30) mmol/L BUN (7-17) mg/dL Glucose (74-99) mg/dL POC Glucose (mg/dL) 175 H 171 H 197 H (70-110) mg/dL Calcium (8.4-10.2) mg/dL AST (14-36) U/L ALT (4-34) U/L Total Protein (6.3-8.2) g/dL Albumin (3.5-5.0) g/dL Lipase (23-300) U/L 09/19/22 09/19/22 Range/Units 06:28 11:50 Sodium 135 L (137-145) mmol/L Carbon Dioxide 20 L (22-30) mmol/L BUN 23 H (7-17) mg/dL Glucose 174 H (74-99) mg/dL POC Glucose (mg/dL) 148 H (70-110) mg/dL Calcium 8.3 L (8.4-10.2) mg/dL AST 60 H (14-36) U/L ALT 69 H (4-34) U/L Total Protein 4.9 L (6.3-8.2) g/dL Albumin 2.7 L (3.5-5.0) g/dL Lipase 590 H (23-300) U/L
[2022-09-19 16:45] LABS: Glucose,Whole Blood 197 mg/dL (70-110)
[2022-09-19] MEDS: carvediloL 6.25 MG TAB PO SCH (17:09)
[2022-09-19 19:54] LABS: Glucose,Whole Blood 200 mg/dL (70-110)
[2022-09-19] MEDS: ASPIRIN 325 MG TAB PO SCH (21:21)
[2022-09-19] MEDS: traZODone HCL 100 MG TAB PO SCH (21:21)
[2022-09-19] MEDS: VENLAFAXINE HCL ER 150 MG CAP PO SCH (21:21)
[2022-09-19] MEDS: EZETIMIBE 10 MG TAB PO SCH (21:22)
[2022-09-20] MEDS: HYDROmorphone 1 MG/ML 1 ML SYRINGE IVP PRN ×3 (01:10→09:42)
[2022-09-20] MEDS: SODIUM CHLORIDE 0.9% 1,000 ML IV SCH (01:10)
[2022-09-20 06:09] LABS: Glucose,Whole Blood 111 mg/dL (70-110)
[2022-09-20 06:23] LABS: Basophils % (A) 0 %; Eosinophils # (A) 0.1 k/uL (0-0.7); Eosinophils % (A) 1 %; HCT 38.4 % (34.0-46.0); HGB 12.6 gm/dL (11.4-16.0); Lymphocytes # (A) 1.9 k/uL (1.0-4.8); Lymphocytes % (A) 19 %; MCH 31.3 pg (25.0-35.0); MCHC 32.9 g/dL (31.0-37.0); MCV 95.2 fL (80.0-100.0); Mean Platelet Volume 8.4; Monocytes # (A) 0.4 k/uL (0-1.0); Monocytes % (A) 4 %; Neutrophils # (A) 7.6 k/uL (1.3-7.7); Neutrophils % (A) 75 %; Platelet Count 273 k/uL (150-450); RBC 4.03 m/uL (3.80-5.40); RDW 12.7 % (11.5-15.5); WBC 10.1 k/uL (3.8-10.6)
[2022-09-20] MEDS: INSULIN ASPART (NovoLOG) 100 UNIT/ML VIAL SQ SCH ×4 (06:28→21:39)
[2022-09-20 06:39] LABS: ALT 77 U/L (4-34); AST 97 U/L (14-36); African American GFR (CKD) >90 (>60 ml/min/1.73 sqM); Alkaline Phosphatase 120 U/L (38-126); Anion Gap 8 mmol/L; Blood Urea Nitrogen 18 mg/dL (7-17); Calcium 8.9 mg/dL (8.4-10.2); Carbon Dioxide 26 mmol/L (22-30); Chloride 103 mmol/L (98-107); Glucose 105 mg/dL (74-99); Lipase 664 U/L (23-300); Non-African American GFR(CKD) 85 (>60 ml/min/1.73 sqM); Potassium 3.6 mmol/L (3.5-5.1); Sodium 137 mmol/L (137-145); Total Bilirubin 0.6 mg/dL (0.2-1.3); Total Protein 5.6 g/dL (6.3-8.2)
[2022-09-20] MEDS: LEVOTHYROXINE 75 MCG TAB PO SCH (06:57)
[2022-09-20] MEDS: carvediloL 6.25 MG TAB PO SCH (06:57)
[2022-09-20] MEDS: IPRATROPIUM-ALBUTEROL 3 ML NEB INHALATION SCH ×4 (07:33→20:32)
[2022-09-20] MEDS: FORMOTEROL FUMARATE 20 MCG/2 ML NEBU INHALATION SCH ×2 (07:33→20:33)
[2022-09-20] MEDS: BUDESONIDE 0.5 MG/2 ML NEBU INHALATION SCH ×2 (07:33→20:33)
[2022-09-20] MEDS ORDERED: carvediloL 6.25 MG TAB PO STA (08:45)
[2022-09-20] MEDS: PANTOPRAZOLE 40 MG/10 ML VIAL IV SCH (09:41)
[2022-09-20] MEDS: CLOPIDOGREL 75 MG TAB PO SCH (09:42)
[2022-09-20] MEDS: LOSARTAN 50 MG TAB PO SCH (09:42)
[2022-09-20] MEDS: busPIRone HCl 10 MG TAB PO SCH ×2 (09:42→21:41)
[2022-09-20] MEDS: MULTIVITAMINS, THERA 1 EACH TAB PO SCH (09:42)
[2022-09-20] MEDS: guaiFENesin 600 MG TABLET.ER PO SCH ×2 (09:42→21:39)
[2022-09-20] MEDS: SUCRALFATE 1 GM TAB PO SCH ×2 (09:42→21:38)
[2022-09-20] MEDS: ENOXAPARIN 40 MG/0.4 ML SYRINGE SQ SCH (09:42)
[2022-09-20] MEDS: GABAPENTIN 100 MG CAP PO SCH ×3 (09:42→21:38)
--- NOTE | 2022-09-20 10:15 | P.PN ---
Subjective HISTORY OF PRESENT ILLNESS: 09/18/2022 62-year-old female was admitted to ICU primarily for abdominal discomfort and respiratory distress. She was diagnosed with pancreatitis. Cardiology was consulted for poorly controlled blood pressure and chest pain evaluation. She has been to rule out of acute coronary syndrome with negative ECG and non- elevated Troponins Vitals: BP 154/84 mmHg, heart rate 68 beats a minute, sinus rhythm on telemetry 09/19/2022 Patient examined this morning at the bedside. Patient denies chest pain or pressure. She denies shortness of breath. Denies dizziness or lightheadedness. Reports improvement in her abdominal pain. Blood pressure improved with a recent reading of 156/72. 09/20/2022 Patient examined this morning at the bedside. Patient denies chest pain or pressure. She denies shortness of breath. She reports abdominal pain this morning and states she has been having heartburn overnight. Patient's blood pressure is improved however not optimally controlled. Most recent reading 169/76. PHYSICAL EXAM: VITAL SIGNS: Reviewed. GENERAL: Well-developed in no acute distress. NECK: Supple. No JVD or thyromegaly LUNGS: Respirations even and unlabored. Lungs essentially clear to auscultation bilaterally. HEART: Regular rate and rhythm. S1 and S2 heard. EXTREMITIES: Normal range of motion. No clubbing or cyanosis. Peripheral pulses intact. No lower extremity edema ASSESSMENT: 1. Acute abdominal pain due to pancreatitis 2. Ischemic cardiomyopathy, LVEF 35% 3. Peripheral arterial disease status post prior intervention by Dr. Martinez 4. Coronary artery disease status post CABG 5. Uncontrolled hypertension PLAN: Continue current cardiac medications Patient intolerant to statin therapy Amlodipine discontinued yesterday secondary to cardiomyopathy Increase carvedilol to 12.5 mg twice a day Continue to monitor blood pressure Further recommendations pending patient's course Nurse practitioner note has been reviewed by physician. Signing provider agrees with the documented findings, assessment, and plan of care. Objective - Vital Signs Vital signs: Vital Signs Temp 98 F 09/19/22 20:00 Pulse 68 09/20/22 07:51 Resp 16 09/20/22 04:00 BP 169/76 09/20/22 04:00 Pulse Ox 97 09/20/22 07:34 FiO2 4 09/16/22 14:00 Intake & Output 09/19/22 09/20/22 09/20/22 18:59 06:59 18:59 Intake Total 180 180 Balance 180 180 Intake: Oral 180 180 Other: Voiding Method Toilet Toilet # Voids 4 2 - Labs CBC & Chem 7: 09/20/22 05:47 09/20/22 05:47 Labs: Abnormal Lab Results - Last 24 Hours (Table) 09/19/22 09/19/22 09/19/22 Range/Units 11:50 16:43 19:51 BUN (7-17) mg/dL Glucose (74-99) mg/dL POC Glucose (mg/dL) 148 H 197 H 200 H (70-110) mg/dL AST (14-36) U/L ALT (4-34) U/L Total Protein (6.3-8.2) g/dL Albumin (3.5-5.0) g/dL Lipase (23-300) U/L 09/20/22 09/20/22 Range/Units 05:47 06:03 BUN 18 H (7-17) mg/dL Glucose 105 H (74-99) mg/dL POC Glucose (mg/dL) 111 H (70-110) mg/dL AST 97 H (14-36) U/L ALT 77 H (4-34) U/L Total Protein 5.6 L (6.3-8.2) g/dL Albumin 3.0 L (3.5-5.0) g/dL Lipase 664 H (23-300) U/L Microbiology - Last 24 Hours (Table) 09/14/22 14:29 Blood Culture - Final Blood 09/14/22 12:30 Blood Culture - Final Blood
[2022-09-20 11:31] LABS: Glucose,Whole Blood 103 mg/dL (70-110)
[2022-09-20 11:50] VITALS: RESP 18
--- NOTE | 2022-09-20 11:59 | P.PN ---
Subjective Progress Note Date: 09/20/22 62-year-old lady with past medical history of peripheral arterial disease, COPD, hypertension, hyperlipidemia, recent intervention for critical limb ischemia of left lower extremity with balloon angioplasty of SFA in June 2022 present to the emergency department with complaints of not feeling well for 1 week. Patient had followed up with pulmonary medicine outpatient and was prescribed steroids and antibiotic. Patient says she has been having shortness of breath and generalized fatigue and malaise chest congestion and perfuse diarrhea. Patient also had episode of vomiting. Time of presentation in ER patient was noted to be in acute distress with significant elevation of blood pressure. Patient was noted to be tachycardic and hypoxic. Blood was obtained in ER included elevated d-dimer, CT chest was obtained which was negative for pulmonary embolism. Basic metabolic panel showed normal sodium , potassium, normal creatinine, lactic acid of 2.5 follow-up lactate of 3.4 patient was resuscitated with fluid. Patient tested negative for Covid and influenza Patient was noted to have respiratory distress and was transferred to ICU for further management for COPD exacerbation and sepsis 09/15: Hospital day 2, patient significant improvement noted. Patient able to have a full conversation and weaned off to room air. Troponins were elevated overnight likely secondary to type II PR. Cardiology consulted as well at bedside QUESTIONS answered. Patient does complain of shortness of breath and cough. Poor IV access with IV noted in lower extremity 09/16: Patient is improving from respiratory standpoint. Hospital day 3. Did complain of epigastric pain. Lipase ordered x-ray KUB ordered IV pain medications ordered one time we'll follow-up denies of associated nausea. Denies fever. Continue to remain on room air continue to be managed in ICU 09/17: Patient complained of abdominal pain, noted to have acute pancreatitis, ultrasound abdomen negative, CT abdomen pelvis ordered pending at this time. Continue patient on IV hydration. Patient was seen by critical care team and started on Precedex with significant anxiety as well. We will consult psychiatry 09/18. Patient seen and examined. Denies any abdominal pain. Patient is very cooperative, answering questions appropriately 09/19. Patient seen and examined. States abdominal pain has improved. Family at the bedside, all questions answered 09/20. Patient seen and examined, laying comfortably in the bed. States abdom inal pain is improved, currently on clear liquid diet REVIEW OF SYSTEMS: CONSTITUTIONAL: No fever, no malaise,. CARDIOVASCULAR: No chest pain, no palpitations, no syncope. PULMONARY: No shortness of breath, no cough, GASTROINTESTINAL: No diarrhea, no nausea, no vomiting, no abdominal pain. NEUROLOGICAL: No headaches, no weakness, PHYSICAL EXAMINATION: GENERAL: The patient is alert and oriented x3, not in any acute distress. Well developed, well nourished. HEENT: Pupils are round and equally reacting to light. EOMI. No scleral icterus. No conjunctival pallor. Normocephalic, atraumatic. No pharyngeal erythema. No thyromegaly. CARDIOVASCULAR: S1 and S2 present. No murmurs, rubs, or gallops. PULMONARY: Chest is clear to auscultation, no wheezing or crackles. ABDOMEN: Soft, nontender, nondistended, normoactive bowel sounds. No palpable organomegaly. MUSCULOSKELETAL: No joint swelling or deformity. EXTREMITIES: No cyanosis, clubbing, or pedal edema. NEUROLOGICAL: Gross neurological examination did not reveal any focal deficits. SKIN: No rashes. Assessment and plan Acute hypoxic hypercapnic respiratory failure acute tracheobronchitis * Acute metabolic encephalopathy * Acute pancreatitis * Peripheral arterial disease recent angioplasty of left SFA * Sepsis * Coronary artery disease * Hypertensive urgency * Elevated troponin secondary to type 2 PR * Monitor vital signs Monitor CBC Monitor CMP Continue telemetry monitoring Complete course of IV antibiotics Continue IV fluids Continue breathing treatments For peripheral artery disease, continue aspirin, Plavix, statin, Cardiology consulted for elevated troponin, recommend medical management Surgery consulted for acute pancreatitis, currently on clear liquid diet, advance diet per surgery, pain management Critical care following Labs and medication were reviewed.. Continue same treatment. Continue with symptomatic treatment. Resume home medication. Monitor labs and vitals. DVT and GI prophylaxis. Further recommendations as per clinical course of the patient Dictation was produced using [employer] dictation software. please excuse any grammatical, word or spelling errors. Objective - Vital Signs Vital signs: Vital Signs Temp 98.2 F 09/20/22 08:00 Pulse 64 09/20/22 11:18 Resp 18 09/20/22 08:00 BP 147/63 09/20/22 08:00 Pulse Ox 93 L 09/20/22 08:00 FiO2 4 09/16/22 14:00 Intake & Output 09/19/22 09/20/22 09/20/22 18:59 06:59 18:59 Intake Total 180 180 Balance 180 180 Intake: Oral 180 180 Other: Voiding Method Toilet Toilet # Voids 4 2 - Labs CBC & Chem 7: 09/20/22 05:47 09/20/22 05:47 Labs: Abnormal Lab Results - Last 24 Hours (Table) 09/19/22 09/19/22 09/20/22 Range/Units 16:43 19:51 05:47 BUN 18 H (7-17) mg/dL Glucose 105 H (74-99) mg/dL POC Glucose (mg/dL) 197 H 200 H (70-110) mg/dL AST 97 H (14-36) U/L ALT 77 H (4-34) U/L Total Protein 5.6 L (6.3-8.2) g/dL Albumin 3.0 L (3.5-5.0) g/dL Lipase 664 H (23-300) U/L 09/20/22 Range/Units 06:03 BUN (7-17) mg/dL Glucose (74-99) mg/dL POC Glucose (mg/dL) 111 H (70-110) mg/dL AST (14-36) U/L ALT (4-34) U/L Total Protein (6.3-8.2) g/dL Albumin (3.5-5.0) g/dL Lipase (23-300) U/L Microbiology - Last 24 Hours (Table) 09/14/22 14:29 Blood Culture - Final Blood 09/14/22 12:30 Blood Culture - Final Blood
[2022-09-20] MEDS: HYDROcodone/APAP 10-325MG 1 EACH TAB PO PRN ×3 (13:30→21:38)
--- NOTE | 2022-09-20 14:30 | P.GSCN ---
History of Present Illness Consult date: 09/20/22 History of present illness: CHIEF COMPLAINT: Shortness of breath HISTORY OF PRESENT ILLNESS: This is a 62-year-old female who presented to the hospital on 09/14/2022 with shortness of breath and evidence of COPD exacerbation. Patient also complains of epigastric abdominal pain and had been diagnosed with acute pancreatitis. Patient had been followed by Dr. Ruth. Yesterday her abdominal pain had improved and she was started on clear liquids. Patient is now requesting a change in surgeon to Dr. Yang because he has done surgery on her in the past. Patient had clear liquids yesterday reports that she does okay with the water but when she tried the popsicle she did have increase in pain. Patient has been needing the IV Dilaudid. Patient denies any nausea or vomiting. Patient has history of cholecystectomy. Patient denies alcohol use. PAST MEDICAL HISTORY: See below PAST SURGICAL HISTORY: See below MEDICATIONS: See below ALLERGIES: See below SOCIAL HISTORY: No illicit drug use. REVIEW OF SYSTEMS: CONSTITUTIONAL: Denies fever or chills. HEENT: Denies blurred vision, vision changes, or eye pain. Denies hemoptysis CARDIOVASCULAR: Denies chest pain or pressure. RESPIRATORY: No shortness of breath. GASTROINTESTINAL: See HPI for pertinent findings HEMATOLOGIC: Denies bleeding disorders. GENITOURINARY: Denies any blood in urine or increased urinary frequency. SKIN: Denies pruitis. Denies rash. PHYSICAL EXAM: VITAL SIGNS: Reviewed GENERAL: Well-developed in no acute distress. ABDOMEN: Soft. Nondistended. Epigastric tenderness NEUROLOGIC: Alert and oriented. Cranial nerves II through XII grossly intact. LABORATORY DATA: WBC 10.1 Hgb 12.6 platelets 273 AST slightly up from 60-97 ALT 69-77 total bilirubin is 0.6 up to 664. IMAGING: Computed tomography scan of pelvis moderate fatty infiltration of liver. Small amount of fluid adjacent to the body and tail of the pancreas. Correlate for acute pancreatitis Abdominal ultrasound unremarkable ASSESSMENT: 1. Acute pancreatitis PLAN: -Continue sips of clear -Continue pain management -Encouraged patient to ambulate -Repeat lipase in a.m. Physician Head Housekeeper note has been reviewed by physician. Signing provider agrees with the documented findings, assessment, and plan of care. Past Medical History Past Medical History: Chest Pain / Angina, Fibromyalgia, Hyperlipidemia, Hypertension, Myocardial Infarction (CO), Rheumatoid Arthritis (RA), Seizure Disorder, Thyroid Disorder Additional Past Medical History / Comment(s): Migraines, 1 seizure in 2012, sarcoidosis, raynauds, LLE edema Last Myocardial Infarction Date:: 04/2012 History of Any Multi-Drug Resistant Organisms: None Reported Past Surgical History: Appendectomy, Bariatric Surgery, Cholecystectomy, Coronary Bypass/CABG, Heart Catheterization With Stent, Hysterectomy Additional Past Surgical History / Comment(s): 09/30/20 BILATERAL ARTERIOGRAM AND RUNOFF, partial hysterectomy, right leg angioplasty with stenting October 2021, carpal tunnel surgery bilateral wrists, CABG 2012 1 vessel Past Anesthesia/Blood Transfusion Reactions: No Reported Reaction Additional Past Anesthesia/Blood Transfusion Reaction / Comm: woke up during heart cath Date of Last Stent Placement:: 04/2011 Smoking Status: Current every day smoker - Past Family History Mother Family Medical History: Deep Vein Thrombosis (DVT) Additional Family Medical History / Comment(s): Lupus Father Family Medical History: Myocardial Infarction ([place]) Additional Family Medical History / Comment(s): from [place] Medications and Allergies Home Medications Medication Instructions Recorded Confirmed Type Aspirin 325 mg PO HS 07/01/13 09/14/22 History Lovastatin [Mevacor] 40 mg PO HS 07/01/13 09/14/22 History Sucralfate [Carafate] 1 tab PO BID 07/01/13 09/14/22 History Topiramate [Topamax] 50 mg PO BID 07/01/13 09/14/22 History traZODone HCL [Desyrel] 100 mg PO HS 07/01/13 09/14/22 History Biotin 5 mg PO DAILY 09/27/20 09/14/22 History Ezetimibe [Zetia] 10 mg PO HS 09/27/20 09/14/22 History Furosemide [Lasix] 20 mg PO QAM 09/27/20 09/14/22 History Magnesium 200 mg PO DAILY 09/27/20 09/14/22 History Multivitamins, Thera [Multivitamin 1 tab PO DAILY 09/27/20 09/14/22 History (formulary)] diphenhydrAMINE [Benadryl] 25 mg PO HS 09/27/20 09/14/22 History Clopidogrel [Plavix] 75 mg PO DAILY #90 tab 10/14/20 09/14/22 Rx Gabapentin [Neurontin] 200 mg PO TID 06/09/22 09/14/22 History traMADol HCl [Ultram] 50 mg PO TID PRN 06/09/22 09/14/22 History Cetirizine HCl [Zyrtec] 10 mg PO DAILY 09/14/22 09/14/22 History Cholecalciferol [Vitamin D3 (25 50 mcg PO DAILY 09/14/22 09/14/22 History Mcg = 1000 Iu)] Levothyroxine Sodium [Synthroid] 75 mcg PO DAILY 09/14/22 09/14/22 History Venlafaxine HCl ER [Effexor Xr] 75 mg PO BID 09/14/22 09/14/22 History Allergies Allergy/AdvReac Type Severity Reaction Status Date / Time iodine AdvReac very hot Verified 09/14/22 08:50 feeling with IV contrast Iduzaab-[id number]-FkA Reductase AdvReac muscle Verified 09/14/22 08:50 Inhibitor pain, [Sqzoayr-Omd-Vzz Reductase fatigue Inhibitor] Surgical - Exam Vital Signs Temp Pulse Resp BP Pulse Ox 97.9 F 91 20 199/112 95 09/14/22 07:32 09/14/22 07:32 09/14/22 07:32 09/14/22 07:32 09/14/22 07:32 Results - Labs 09/20/22 05:47 09/20/22 05:47 Abnormal Lab Results - Last 24 Hours (Table) 09/19/22 09/19/22 09/20/22 Range/Units 16:43 19:51 05:47 BUN 18 H (7-17) mg/dL Glucose 105 H (74-99) mg/dL POC Glucose (mg/dL) 197 H 200 H (70-110) mg/dL AST 97 H (14-36) U/L ALT 77 H (4-34) U/L Total Protein 5.6 L (6.3-8.2) g/dL Albumin 3.0 L (3.5-5.0) g/dL Lipase 664 H (23-300) U/L 09/20/22 Range/Units 06:03 BUN (7-17) mg/dL Glucose (74-99) mg/dL POC Glucose (mg/dL) 111 H (70-110) mg/dL AST (14-36) U/L ALT (4-34) U/L Total Protein (6.3-8.2) g/dL Albumin (3.5-5.0) g/dL Lipase (23-300) U/L Microbiology - Last 24 Hours (Table) 09/14/22 14:29 Blood Culture - Final Blood 09/14/22 12:30 Blood Culture - Final Blood Diabetes panel 09/20/22 Range/Units 05:47 Sodium 137 (137-145) mmol/L Potassium 3.6 (3.5-5.1) mmol/L Chloride 103 (98-107) mmol/L Carbon Dioxide 26 (22-30) mmol/L BUN 18 H (7-17) mg/dL Creatinine 0.76 (0.52-1.04) mg/dL Glucose 105 H (74-99) mg/dL Calcium 8.9 (8.4-10.2) mg/dL AST 97 H (14-36) U/L ALT 77 H (4-34) U/L Alkaline Phosphatase 120 (38-126) U/L Total Protein 5.6 L (6.3-8.2) g/dL Albumin 3.0 L (3.5-5.0) g/dL Calcium panel 09/20/22 Range/Units 05:47 Calcium 8.9 (8.4-10.2) mg/dL Albumin 3.0 L (3.5-5.0) g/dL Pituitary panel 09/20/22 Range/Units 05:47 Sodium 137 (137-145) mmol/L Potassium 3.6 (3.5-5.1) mmol/L Chloride 103 (98-107) mmol/L Carbon Dioxide 26 (22-30) mmol/L BUN 18 H (7-17) mg/dL Creatinine 0.76 (0.52-1.04) mg/dL Glucose 105 H (74-99) mg/dL Calcium 8.9 (8.4-10.2) mg/dL Adrenal panel 09/20/22 Range/Units 05:47 Sodium 137 (137-145) mmol/L Potassium 3.6 (3.5-5.1) mmol/L Chloride 103 (98-107) mmol/L Carbon Dioxide 26 (22-30) mmol/L BUN 18 H (7-17) mg/dL Creatinine 0.76 (0.52-1.04) mg/dL Glucose 105 H (74-99) mg/dL Calcium 8.9 (8.4-10.2) mg/dL Total Bilirubin 0.6 (0.2-1.3) mg/dL AST 97 H (14-36) U/L ALT 77 H (4-34) U/L Alkaline Phosphatase 120 (38-126) U/L Total Protein 5.6 L (6.3-8.2) g/dL Albumin 3.0 L (3.5-5.0) g/dL
[2022-09-20 17:02] LABS: Glucose,Whole Blood 99 mg/dL (70-110)
[2022-09-20] MEDS: traMADol 50 MG TAB PO PRN (17:56)
[2022-09-20] MEDS: carvediloL 12.5 MG TAB PO SCH (17:56)
[2022-09-20 20:45] LABS: Glucose,Whole Blood 109 mg/dL (70-110)
[2022-09-20] MEDS: VENLAFAXINE HCL ER 150 MG CAP PO SCH (21:38)
[2022-09-20] MEDS: EZETIMIBE 10 MG TAB PO SCH (21:38)
[2022-09-20] MEDS: ASPIRIN 325 MG TAB PO SCH (21:38)
[2022-09-20] MEDS: traZODone HCL 100 MG TAB PO SCH (21:45)
[2022-09-21] MEDS: SODIUM CHLORIDE 0.9% 1,000 ML IV SCH ×2 (02:56→06:34)
[2022-09-21] MEDS: HYDROcodone/APAP 10-325MG 1 EACH TAB PO PRN (05:41)
[2022-09-21 06:03] LABS: Glucose,Whole Blood 90 mg/dL (70-110)
[2022-09-21] MEDS: LEVOTHYROXINE 75 MCG TAB PO SCH (06:33)
[2022-09-21] MEDS: INSULIN ASPART (NovoLOG) 100 UNIT/ML VIAL SQ SCH (06:34)
[2022-09-21] MEDS: carvediloL 12.5 MG TAB PO SCH (06:34)
[2022-09-21] MEDS: BUDESONIDE 0.5 MG/2 ML NEBU INHALATION SCH (08:15)
[2022-09-21] MEDS: FORMOTEROL FUMARATE 20 MCG/2 ML NEBU INHALATION SCH (08:15)
[2022-09-21] MEDS: IPRATROPIUM-ALBUTEROL 3 ML NEB INHALATION SCH ×3 (08:15→15:15)
[2022-09-21 08:18] LABS: HCT 40.5 % (34.0-46.0); HGB 13.1 gm/dL (11.4-16.0); MCH 30.8 pg (25.0-35.0); MCHC 32.3 g/dL (31.0-37.0); MCV 95.3 fL (80.0-100.0); Mean Platelet Volume 8.6; Platelet Count 337 k/uL (150-450); RBC 4.25 m/uL (3.80-5.40); RDW 12.8 % (11.5-15.5); WBC 13.4 k/uL (3.8-10.6)
[2022-09-21 08:40] LABS: ALT 84 U/L (4-34); AST 106 U/L (14-36); African American GFR (CKD) >90 (>60 ml/min/1.73 sqM); Albumin 3.2 g/dL (3.5-5.0); Alkaline Phosphatase 120 U/L (38-126); Anion Gap 11 mmol/L; Blood Urea Nitrogen 16 mg/dL (7-17); Calcium 8.6 mg/dL (8.4-10.2); Carbon Dioxide 23 mmol/L (22-30); Chloride 101 mmol/L (98-107); Glucose 124 mg/dL (74-99); Lipase 1090 U/L (23-300); Non-African American GFR(CKD) >90 (>60 ml/min/1.73 sqM); Potassium 3.7 mmol/L (3.5-5.1); Sodium 135 mmol/L (137-145); Total Bilirubin 0.8 mg/dL (0.2-1.3); Total Protein 5.7 g/dL (6.3-8.2)
[2022-09-21 08:54] VITALS: BP 165/75; TEMP 98.1
[2022-09-21] MEDS: MULTIVITAMINS, THERA 1 EACH TAB PO SCH (08:54)
[2022-09-21] MEDS: LOSARTAN 50 MG TAB PO SCH (08:54)
[2022-09-21] MEDS: PANTOPRAZOLE 40 MG/10 ML VIAL IV SCH (08:54)
[2022-09-21] MEDS: guaiFENesin 600 MG TABLET.ER PO SCH (08:54)
[2022-09-21] MEDS: traMADol 50 MG TAB PO PRN (08:55)
[2022-09-21] MEDS: busPIRone HCl 10 MG TAB PO SCH (08:55)
[2022-09-21] MEDS: GABAPENTIN 100 MG CAP PO SCH (08:55)
[2022-09-21] MEDS: SUCRALFATE 1 GM TAB PO SCH (08:55)
[2022-09-21] MEDS: CLOPIDOGREL 75 MG TAB PO SCH (08:55)
[2022-09-21] MEDS: ENOXAPARIN 40 MG/0.4 ML SYRINGE SQ SCH (08:56)
[2022-09-21 11:41] LABS: Glucose,Whole Blood 155 mg/dL (70-110)
--- NOTE | 2022-09-21 12:42 | P.PN ---
Subjective Progress Note Date: 09/21/22 CHIEF COMPLAINT: Pancreatitis HISTORY OF PRESENT ILLNESS: Patient on the cardiac floor. She is feeling much better. She has very minimal pain she rated a 1 out of 10. She is requesting more to eat. Afebrile. WBC 13.4 lipase 664-1090. Diet was advanced to full liquids for lunch. Patient tolerated full liquids. She's requesting to be discharged. PHYSICAL EXAM: VITAL SIGNS: Reviewed GENERAL: Well-developed in no acute distress. HEENT: No sclera icterus. Extraocular movements grossly intact. Moist buccal mucosa. Head is atraumatic, normocephalic. Hears conversational speech. No nasal drai nage. NECK: Supple without lymphadenopathy. CHEST: Non-labored respirations and equal bilateral excursions. CARDIOVASCULAR: Palpable 2+ radial pulses. ABDOMEN: Soft. Nondistended. Nontender MUSCULOSKELETAL: No clubbing or cyanosis. NEUROLOGIC: No focal or lateralizing signs. Cranial nerves II through XII grossly intact. PSYCH: Appropriate affect. Alert and oriented to person, place and time. SKIN: Well perfused. Good skin turgor. ASSESSMENT: 1. Acute pancreatitis 2. Acute COPD exacerbation 3. Hypertension 4. Coronary artery disease with prior CABG PLAN: -Patient can be discharged from surgical standpoint -Recommend one-week follow-up with Dr. mcclellan office -Continue full liquid diet for a few days and then advance as tolerated Physician Engineering Vice President note has been reviewed by physician. Signing provider agrees with the documented findings, assessment, and plan of care. Objective - Vital Signs Vital signs: Vital Signs Temp 98.1 F 09/21/22 08:00 Pulse 72 09/21/22 11:50 Resp 18 09/21/22 08:00 BP 165/75 09/21/22 08:00 Pulse Ox 93 L 09/21/22 08:15 FiO2 4 09/16/22 14:00 Intake & Output 09/20/22 09/21/22 09/21/22 18:59 06:59 18:59 Intake Total 630 Balance 630 Intake: Oral 630 Other: # Voids 3 2 - Labs CBC & Chem 7: 09/21/22 07:57 09/21/22 07:57 Labs: Abnormal Lab Results - Last 24 Hours (Table) 09/21/22 09/21/22 09/21/22 Range/Units 07:57 07:57 11:39 WBC 13.4 H (3.8-10.6) k/uL Sodium 135 L (137-145) mmol/L Glucose 124 H (74-99) mg/dL POC Glucose (mg/dL) 155 H (70-110) mg/dL AST 106 H (14-36) U/L ALT 84 H (4-34) U/L Total Protein 5.7 L (6.3-8.2) g/dL Albumin 3.2 L (3.5-5.0) g/dL Lipase 1090 H (23-300) U/L
--- NOTE | 2022-09-21 12:50 | P.DS ---
Providers Date of admission: 09/14/22 13:30 Expected date of discharge: 09/21/22 Attending physician: Paul Hurtado MD Consults: 09/14/22 11:34 Consult Physician Routine Consulting Provider: Jose Ramon Camarena Consult Reason/Comments: Dyspnea, elevated d-dimer Do you want consulting provider notified?: Already Contacted 09/14/22 16:16 Consult Physician Routine Consulting Provider: Brittany Gasca Consult Reason/Comments: Coronary artery disease, elevated troponin Do you want consulting provider notified?: Yes 09/17/22 09:13 Consult Physician Routine Consulting Provider: Fercho Yang Consult Reason/Comments: pancreatitis Do you want consulting provider notified?: Yes 09/17/22 14:35 Consult Physician Routine Consulting Provider: Hung Meza Consult Reason/Comments: Anxiety, Panic attacks Do you want consulting provider notified?: Yes Primary care physician: Juanpablo Inman [facility] Course: Discharge diagnoses; Acute hypoxic hypercapnic respiratory failure acute tracheobronchitis * Acute metabolic encephalopathy * Acute pancreatitis * Peripheral arterial disease recent angioplasty of left SFA * Sepsis * Coronary artery disease * Hypertensive urgency * Elevated troponin secondary to type 2 WA Hospital course; 62-year-old lady with past medical history of peripheral arterial disease, COPD, hypertension, hyperlipidemia, recent intervention for critical limb ischemia of left lower extremity with balloon angioplasty of SFA in June 2022 present to the emergency department with complaints of not feeling well for 1 week. Patient had followed up with pulmonary medicine outpatient and was prescribed steroids and antibiotic. Patient says she has been having shortness of breath and generalized fatigue and malaise chest congestion and perfuse diarrhea. Patient also had episode of vomiting. Time of presentation in ER patient was noted to be in acute distress with significant elevation of blood pressure. Patient was noted to be tachycardic and hypoxic. Blood was obtained in ER included elevated d-dimer, CT chest was obtained which was negative for pulmonary embolism. Basic metabolic panel showed normal sodium, potassium, normal creatinine, lactic acid of 2.5 follow-up lactate of 3.4 patient was resuscitated with fluid. Patient tested negative for Covid and influenza Patient was noted to have respiratory distress and was transferred to ICU for further management for COPD exacerbation and sepsis 09/15: Hospital day 2, patient significant improvement noted. Patient able to have a full conversation and weaned off to room air. Troponins were elevated overnight likely secondary to type II WA. Cardiology consulted as well at bedside QUESTIONS answered. Patient does complain of shortness of breath and cough. Poor IV access with IV noted in lower extremity 09/16: Patient is improving from respiratory standpoint. Hospital day 3. Did complain of epigastric pain. Lipase ordered x-ray KUB ordered IV pain medications ordered one time we'll follow-up denies of associated nausea. Denies fever. Continue to remain on room air continue to be managed in ICU 09/17: Patient complained of abdominal pain, noted to have acute pancreatitis, ultrasound abdomen negative, CT abdomen pelvis ordered pending at this time. Continue patient on IV hydration. Patient was seen by critical care team and started on Precedex with significant anxiety as well. We will consult psychiatry 09/18. Patient seen and examined. Denies any abdominal pain. Patient is very cooperative, answering questions appropriately 09/19. Patient seen and examined. States abdominal pain has improved. Family at the bedside, all questions answered 09/20. Patient seen and examined, laying comfortably in the bed. States abdominal pain is improved, currently on clear liquid diet 09/21. Patient seen and examined. Patient currently tolerating liquid diet, patient keen to go home. Surgery recommend outpatient follow-up, cleared the patient for discharge Psych also evaluated the patient recommended to the following changes to medications Change Ativan to 1 mg IV twice a day when necessary for panic attacks; recommend discharging the patient with Ativan 1 mg by mouth twice a day when necessary for 2 weeks upon discharge -Change Effexor to 150 mg by mouth at bedtime for anxiety and panic Continue BuSpar 20 mg by mouth twice a day for anxiety Continue trazodone 100 mg daily at bedtime for insomnia Continue gabapentin 200 mg by mouth 3 times a day PHYSICAL EXAMINATION: GENERAL: The patient is alert and oriented x3, not in any acute distress. Well developed, well nourished. HEENT: Pupils are round and equally reacting to light. EOMI. No scleral icterus. No conjunctival pallor. Normocephalic, atraumatic. No pharyngeal erythema. No thyromegaly. CARDIOVASCULAR: S1 and S2 present. No murmurs, rubs, or gallops. PULMONARY: Chest is clear to auscultation, no wheezing or crackles. ABDOMEN: Soft, nontender, nondistended, normoactive bowel sounds. No palpable organomegaly. MUSCULOSKELETAL: No joint swelling or deformity. EXTREMITIES: No cyanosis, clubbing, or pedal edema. NEUROLOGICAL: Gross neurological examination did not reveal any focal deficits. SKIN: No rashes. Dictation was produced using Entefy dictation software. please excuse any grammatical, word or spelling errors. Patient Condition at Discharge: Good Plan - Discharge Summary New Discharge Prescriptions: New LORazepam [Ativan] 1 mg PO BID PRN 3 Days #6 tab PRN Reason: Anxiety Losartan [Cozaar] 100 mg PO DAILY #30 tab busPIRone HCl [Buspar] 20 mg PO BID #30 tab carvediloL [Coreg*] 12.5 mg PO BID-W/MEALS #60 tab Venlafaxine HCl ER [Effexor XR] 150 mg PO HS #30 cap Continue Sucralfate [Carafate] 1 tab PO BID Lovastatin [Mevacor] 40 mg PO HS traZODone HCL [Desyrel] 100 mg PO HS Aspirin 325 mg PO HS Multivitamins, Thera [Multivitamin (formulary)] 1 tab PO DAILY Furosemide [Lasix] 20 mg PO QAM Biotin 5 mg PO DAILY diphenhydrAMINE [Benadryl] 25 mg PO HS Gabapentin [Neurontin] 200 mg PO TID Cetirizine HCl [Zyrtec] 10 mg PO DAILY Levothyroxine Sodium [Synthroid] 75 mcg PO DAILY Ezetimibe [Zetia] 10 mg PO HS Magnesium 200 mg PO DAILY Clopidogrel [Plavix] 75 mg PO DAILY #90 tab traMADol HCl [Ultram] 50 mg PO TID PRN PRN Reason: Pain Cholecalciferol [Vitamin D3 (25 Mcg = 1000 Iu)] 50 mcg PO DAILY Discontinued Topiramate [Topamax] 50 mg PO BID Venlafaxine HCl ER [Effexor Xr] 75 mg PO BID Discharge Medication List Aspirin 325 mg PO HS 07/01/13 [History] Lovastatin [Mevacor] 40 mg PO HS 07/01/13 [History] Sucralfate [Carafate] 1 tab PO BID 07/01/13 [History] traZODone HCL [Desyrel] 100 mg PO HS 07/01/13 [History] Biotin 5 mg PO DAILY 09/27/20 [History] Ezetimibe [Zetia] 10 mg PO HS 09/27/20 [History] Furosemide [Lasix] 20 mg PO QAM 09/27/20 [History] Magnesium 200 mg PO DAILY 09/27/20 [History] Multivitamins, Thera [Multivitamin (formulary)] 1 tab PO DAILY 09/27/20 [History] diphenhydrAMINE [Benadryl] 25 mg PO HS 09/27/20 [History] Clopidogrel [Plavix] 75 mg PO DAILY #90 tab 10/14/20 [Rx] Gabapentin [Neurontin] 200 mg PO TID 06/09/22 [History] traMADol HCl [Ultram] 50 mg PO TID PRN 06/09/22 [History] Cetirizine HCl [Zyrtec] 10 mg PO DAILY 09/14/22 [History] Cholecalciferol [Vitamin D3 (25 Mcg = 1000 Iu)] 50 mcg PO DAILY 09/14/22 [History] Levothyroxine Sodium [Synthroid] 75 mcg PO DAILY 09/14/22 [History] LORazepam [Ativan] 1 mg PO BID PRN 3 Days #6 tab 09/21/22 [Rx] Losartan [Cozaar] 100 mg PO DAILY #30 tab 09/21/22 [Rx] Venlafaxine HCl ER [Effexor XR] 150 mg PO HS #30 cap 09/21/22 [Rx] busPIRone HCl [Buspar] 20 mg PO BID #30 tab 09/21/22 [Rx] carvediloL [Coreg*] 12.5 mg PO BID-W/MEALS #60 tab 09/21/22 [Rx] Follow up Appointment(s)/Referral(s): Flip Martinez MD [STAFF PHYSICIAN] - 1 Week Juanpablo Inman DO [Primary Care Provider] - 1-2 days Fercho Yang MD [STAFF PHYSICIAN] - 1 Week Discharge Disposition: HOME SELF-CARE
--- NOTE | 2022-09-21 13:44 | P.PN ---
Subjective HISTORY OF PRESENT ILLNESS: 09/18/2022 62-year-old female was admitted to ICU primarily for abdominal discomfort and respiratory distress. She was diagnosed with pancreatitis. Cardiology was consulted for poorly controlled blood pressure and chest pain evaluation. She has been to rule out of acute coronary syndrome with negative ECG and non- elevated Troponins Vitals: BP 154/84 mmHg, heart rate 68 beats a minute, sinus rhythm on telemetry 09/19/2022 Patient examined this morning at the bedside. Patient denies chest pain or pressure. She denies shortness of breath. Denies dizziness or lightheadedness. Reports improvement in her abdominal pain. Blood pressure improved with a recent reading of 156/72. 09/20/2022 Patient examined this morning at the bedside. Patient denies chest pain or pressure. She denies shortness of breath. She reports abdominal pain this morning and states she has been having heartburn overnight. Patient's blood pressure is improved however not optimally controlled. Most recent reading 169/76. 09/21/2022 Patient examined this morning at the bedside. Patient denies chest pain or pressure. She denies shortness of breath. She states her abdominal pain has resolved. Patient's blood pressures are improved although not optimally well- controlled. The patient is extremely anxious to be discharged home today. PHYSICAL EXAM: VITAL SIGNS: Reviewed. GENERAL: Well-developed in no acute distress. NECK: Supple. No JVD or thyromegaly LUNGS: Respirations even and unlabored. Lungs essentially clear to auscultation bilaterally. HEART: Regular rate and rhythm. S1 and S2 heard. EXTREMITIES: Normal range of motion. No clubbing or cyanosis. Peripheral pulses intact. No lower extremity edema ASSESSMENT: 1. Acute abdominal pain due to pancreatitis 2. Ischemic cardiomyopathy, LVEF 35% 3. Peripheral arterial disease status post prior intervention by Dr. Martinez 4. Coronary artery disease status post CABG 5. Uncontrolled hypertension PLAN: Continue current cardiac medications Patient intolerant to statin therapy Amlodipine discontinued secondary to cardiomyopathy Patient may be discharged home today from a cardiac standpoint Patient instructed to bring her blood pressure cuff with her to her follow-up appointment with Dr. Wang and also keep a log of her blood pressures at home. Patient is agreeable. Nurse practitioner note has been reviewed by physician. Signing provider agrees with the documented findings, assessment, and plan of care. Objective - Vital Signs Vital signs: Vital Signs Temp 98.1 F 08/10/23 08:00 Pulse 72 09/21/22 11:50 Resp 18 09/21/22 08:00 BP 165/75 09/21/22 08:00 Pulse Ox 93 L 09/21/22 08:15 FiO2 4 09/16/22 14:00 Intake & Output 09/20/22 09/21/22 09/21/22 18:59 06:59 18:59 Intake Total 630 118 Balance 630 118 Intake: Oral 630 118 Other: # Voids 3 2 - Labs CBC & Chem 7: 09/21/22 07:57 09/21/22 07:57 Labs: Abnormal Lab Results - Last 24 Hours (Table) 09/21/22 09/21/22 09/21/22 Range/Units 07:57 07:57 11:39 WBC 13.4 H (3.8-10.6) k/uL Sodium 135 L (137-145) mmol/L Glucose 124 H (74-99) mg/dL POC Glucose (mg/dL) 155 H (70-110) mg/dL AST 106 H (14-36) U/L ALT 84 H (4-34) U/L Total Protein 5.7 L (6.3-8.2) g/dL Albumin 3.2 L (3.5-5.0) g/dL Lipase 1090 H (23-300) U/L
[2022-09-21 14:39] VITALS: PULSE 67
== END 2022-09-21 15:39 | disposition home or self-care (01) | DRG 871 ==
LOC: EC 07:18 → 2SICU 13:30 → 3SCARD 09-18 18:41
PROVIDERS: ADMIT Internal Medicine; ATTEND Internal Medicine
PROC: 05HB33Z Insertion of Infusion Device into Right Basilic Vein, Percutaneous Approach (ICD-10-PCS; principal; 2022-09-15 10:00)
DX: A41.9 Sepsis, unspecified organism (principal); G93.41 Metabolic encephalopathy; I21.A1 Myocardial infarction type 2; J96.01 Acute respiratory failure with hypoxia; J96.02 Acute respiratory failure with hypercapnia; K85.90 Acute pancreatitis without necrosis or infection, unspecified; J44.1 Chronic obstructive pulmonary disease with (acute) exacerbation; F41.0 Panic disorder [episodic paroxysmal anxiety]; E03.9 Hypothyroidism, unspecified; E78.5 Hyperlipidemia, unspecified; F17.200 Nicotine dependence, unspecified, uncomplicated; G40.909 Epilepsy, unspecified, not intractable, without status epilepticus; I10 Essential (primary) hypertension; I25.10 Atherosclerotic heart disease of native coronary artery without angina pectoris; I25.5 Ischemic cardiomyopathy; I73.00 Raynaud's syndrome without gangrene; J20.9 Acute bronchitis, unspecified; K76.0 Fatty (change of) liver, not elsewhere classified; M79.7 Fibromyalgia; M06.9 Rheumatoid arthritis, unspecified; I16.0 Hypertensive urgency; Z20.822 Contact with and (suspected) exposure to COVID-19; I25.2 Old myocardial infarction; Z79.02 Long term (current) use of antithrombotics/antiplatelets; Z79.82 Long term (current) use of aspirin; Z79.890 Hormone replacement therapy; Z79.899 Other long term (current) drug therapy; Z82.49 Family history of ischemic heart disease and other diseases of the circulatory system; Z90.49 Acquired absence of other specified parts of digestive tract; Z90.711 Acquired absence of uterus with remaining cervical stump; Z95.1 Presence of aortocoronary bypass graft; Z95.5 Presence of coronary angioplasty implant and graft; Z95.820 Peripheral vascular angioplasty status with implants and grafts; Z88.8 Allergy status to other drugs, medicaments and biological substances; Z91.041 Radiographic dye allergy status
CPT/HCPCS: 36410; 36415; 36600; 71045; 71046; 71275; 74018; 74177; 76700; 76937; 80048; 80053; 80061; 82247; 82803; 82805; 83036; 83605; 83690; 83735; 84132; 84484; 85025; 85027; 85379; 85610; 85730; 86140; 87040; 87636; 93005; 93306; 94640; 94660; 94760; 96361; 96365; 96366; 96367; 96368; 96372; 96375; 96376; 99291

== ENCOUNTER 2022-10-06 10:57 | Day surgery (SDC) | payer BC ==
[~2022-10-06 10:57] MED LIST changes: +ALPRAZolam 0.5 MG TAB PO PRN; -ASPIRIN 325 MG TAB PO PRN; +ASPIRIN 325 MG TAB PO STA; +NITROGLYCERIN SL TABS 0.4 MG TAB SUBLINGUAL PRN; -SODIUM CHLORIDE 0.9% 1,000 ML in EMPTY BAG 1 BAG IV ONE; +SODIUM CHLORIDE 0.9% 1,000 ML in EMPTY BAG 1 BAG IV SCH; -SODIUM CHLORIDE 0.9% 500 ML 500 ML with niCARdipine 6.25 MG, NITROGLYCERIN-D5W PMX 0.05... IV ONE
[2022-10-06 11:40] VITALS: RESP 16
[2022-10-06] MEDS ORDERED: SODIUM CHLORIDE 0.9% 1,000 ML IV ONE (11:41)
[2022-10-06 11:56] LABS: Basophils % (A) 0 %; Eosinophils # (A) 0.1 k/uL (0-0.7); Eosinophils % (A) 1 %; HCT 36.5 % (34.0-46.0); HGB 11.9 gm/dL (11.4-16.0); Lymphocytes # (A) 0.9 k/uL (1.0-4.8); Lymphocytes % (A) 8 %; MCH 31.1 pg (25.0-35.0); MCHC 32.5 g/dL (31.0-37.0); MCV 95.7 fL (80.0-100.0); Mean Platelet Volume 8.9; Monocytes # (A) 0.2 k/uL (0-1.0); Monocytes % (A) 2 %; Neutrophils # (A) 10.4 k/uL (1.3-7.7); Neutrophils % (A) 90 %; Platelet Count 270 k/uL (150-450); RBC 3.81 m/uL (3.80-5.40); RDW 12.4 % (11.5-15.5); WBC 11.6 k/uL (3.8-10.6)
[2022-10-06] MEDS ORDERED: LIDOCAINE 1% INJ 10MG/ML (30 ML VIAL-PF) SQ ONE (12:49)
[2022-10-06] MEDS ORDERED: MIDAZOLAM 2 MG/2 ML VIAL IVP ONE (12:51)
[2022-10-06] MEDS ORDERED: fentaNYL (PF) 50 MCG/ML 2 ML AMP IVP ONE (12:55)
[2022-10-06] MEDS ORDERED: IOPAMIDOL-370 200ML BTL INJ ONE (13:09)
[2022-10-06] MEDS ORDERED: RX INFO: IV CONTRAST WAS GIVEN 1 EACH MISC MISCELLANE PRN (13:13)
[2022-10-06] MEDS ORDERED: SODIUM CHLORIDE 0.9% 1,000 ML IV SCH (13:15)
--- NOTE | 2022-10-06 13:18 | P.PCN ---
Date of Procedure: 10/06/22 Operative Findings: CARDIAC CATHETERIZATION PERFORMING PHYSICIAN: Flip Martinez MD, RPVI PROCEDURE PERFORMED: 1. Selective right and left coronary angiogram 2. Left heart catheterization 3. GUTIERREZ into LAD angiogram 4. Right common femoral artery angiogram 5. Ultrasound-guided access of the right common femoral artery INDICATION: Resented diagnosis of cardiomyopathy in this 62-year-old female patient was known CAD and prior revascularization with prior stenting of the LAD and also known GUTIERREZ to LAD as well as hypertension and dyslipidemia and smoking COMPLICATION: None APPROACH: Right common femoral artery LEVEL OF SEDATION: Moderate with sedation in length of 18 minutes PROCEDURE DESCRIPTION: After obtaining an informed consent, the patient was brought to cardiac greenskeeper laborer. Local anesthesia was performed using lidocaine subcutaneously. The right common femoral artery was cannulated using Seldinger technique, the guidewire passed easily, following that we advanced a 6 Syrian sheath dilator assembly, the wire and dilator were removed and sheath was flushed. Selective right and left coronary angiogram using a 6-Syrian JR4 and JL catheters. The GUTIERREZ to LAD angiogram was performed using JR4 catheter Following that we did left heart catheterization using 6-Syrian pigtail catheter. The procedure was completed there was no complication. SELECTIVE CORONARY ANGIOGRAM: The right coronary artery: Large-caliber vessel and a dominant vessel. The RCA has mild disease in the midportion Left main: Is angiographically normal. Bifurcates into an LCx and LAD The left circumflex: Large-caliber vessel on dominant vessel. The LCx appeared to be angiographically normal and gives rises to an OM which seems to be normal as well. The left anterior descending artery: Large-caliber vessel. The stent in the proximal LAD is patent. The mid LAD has mild disease only The GUTIERREZ to LAD: Atrophic and occluded HEMODYNAMICS: The LVEDP was 20 mmHg was no significant gradient across aortic valve CONCLUSION: 1. Patent stent in the proximal LAD. No high-grade stenosis was identified in the LAD. Occluded GUTIERREZ to LAD 2. Mild disease involving the left main and left circumflex and RCA 3. Elevated left-sided filling pressure POSTPROCEDURE MANAGEMENT: Continue maximize medical treatment for cardiomyopathy
[2022-10-06] MEDS ORDERED: LORazepam 1 MG TAB PO PRN (13:34)
[2022-10-06] MEDS ORDERED: traMADol 50 MG TAB PO PRN (13:34)
[2022-10-06] MEDS ORDERED: GABAPENTIN 100 MG CAP PO SCH (16:00)
[2022-10-06 16:35] VITALS: TEMP 97.7
[2022-10-06] MEDS ORDERED: carvediloL 12.5 MG TAB PO SCH (17:30)
[2022-10-06 18:15] VITALS: BP 118/64; PULSE 72
[2022-10-06] MEDS ORDERED: EZETIMIBE 10 MG TAB PO SCH (21:00)
[2022-10-06] MEDS ORDERED: diphenhydrAMINE 25 MG CAP PO SCH (21:00)
[2022-10-06] MEDS ORDERED: VENLAFAXINE HCL ER 150 MG CAP PO SCH (21:00)
[2022-10-06] MEDS ORDERED: LOVASTATIN 40 MG PO SCH (21:00)
[2022-10-06] MEDS ORDERED: busPIRone HCl 10 MG TAB PO SCH (21:00)
[2022-10-06] MEDS ORDERED: traZODone HCL 100 MG TAB PO SCH (21:00)
[2022-10-06] MEDS ORDERED: ASPIRIN 325 MG TAB PO SCH (21:00)
[2022-10-07] MEDS ORDERED: LEVOTHYROXINE 75 MCG TAB PO SCH (06:30)
[2022-10-07] MEDS ORDERED: CLOPIDOGREL 75 MG TAB PO SCH (09:00)
[2022-10-07] MEDS ORDERED: FUROSEMIDE 20 MG TAB PO SCH (09:00)
[2022-10-07] MEDS ORDERED: LOSARTAN 50 MG TAB PO SCH (09:00)
[2022-10-07] MEDS ORDERED: LORATADINE 10 MG TAB PO SCH (09:00)
== END 2022-10-06 20:32 | disposition home or self-care (01) ==
LOC: CATHCVL 10:57 → 6NMEDSUR 13:23 → CATHCVL 20:32
PROVIDERS: ATTEND Internal Medicine Interventional Cardiology
DX: I25.10 Atherosclerotic heart disease of native coronary artery without angina pectoris (principal); I25.5 Ischemic cardiomyopathy; I42.9 Cardiomyopathy, unspecified; E78.5 Hyperlipidemia, unspecified; I10 Essential (primary) hypertension; Z95.5 Presence of coronary angioplasty implant and graft; F17.210 Nicotine dependence, cigarettes, uncomplicated; Z79.2 Long term (current) use of antibiotics; Z79.899 Other long term (current) drug therapy
CPT/HCPCS: 93459; 76937; 85025; C1769 ×2; C1894 ×2; J2250; J2001; J3010; Q9967

== ENCOUNTER 2023-04-23 14:40 | Emergency (ER) | payer OTHER, BC ==
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
[2023-04-23] MEDS: ACETAMINOPHEN TAB 325 MG TAB PO STA (15:23)
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
[2023-04-23] MEDS: DIPH,PERTUS(ACELL)TETVAC-LF 0.5 ML VIAL IM ONE (15:24)
[2023-04-23 16:21] VITALS: BP 186/80; PULSE 78; RESP 18; TEMP 98.4
== END 2023-04-23 15:30 | disposition home or self-care (01) ==
LOC: EC 14:40
DX: S50.12XA Contusion of left forearm, initial encounter (principal); E78.5 Hyperlipidemia, unspecified; I10 Essential (primary) hypertension; I25.2 Old myocardial infarction; E07.9 Disorder of thyroid, unspecified; F41.9 Anxiety disorder, unspecified; Z87.891 Personal history of nicotine dependence; Z79.82 Long term (current) use of aspirin; Z79.899 Other long term (current) drug therapy; Z79.890 Hormone replacement therapy; Z88.8 Allergy status to other drugs, medicaments and biological substances; Z91.041 Radiographic dye allergy status; Z23 Encounter for immunization; V89.2XXA Person injured in unspecified motor-vehicle accident, traffic, initial encounter; Y92.410 Unspecified street and highway as the place of occurrence of the external cause
CPT/HCPCS: 90471; 90715; 99284

== ENCOUNTER → 2023-05-07 | Outpatient (CLI) | payer OTHER ==
--- NOTE | 2023-05-07 13:01 | XR ---
EXAMINATION TYPE: XR forearm LT DATE OF EXAM: 05/07/2023 COMPARISON: NONE HISTORY: Pain Two views of the forearm demonstrate that the osseous structures appear to be intact and the joint sp aces appear to be preserved. There is no acute fracture or dislocation. Large area of soft tissue e kimberley along the dorsal surface of distal radius and ulna. Diffuse demineralization. IMPRESSION: 1. No acute fracture or dislocation 2. Large area of soft tissue edema along the distal margin of the radius and ulna.
--- NOTE | 2023-05-07 13:06 | XR ---
EXAMINATION TYPE: XR thoracic spine 2V DATE OF EXAM: 05/07/2023 COMPARISON: NONE HISTORY: Low back pain TECHNIQUE: 3 views submitted FINDINGS: Alignment is anatomic. There is no compression deformities. Vertebral body height and disc interspa valerie are maintained. Diffuse osteopenia with scoliosis and multilevel hypertrophic and degenerative di sc disease. Post median sternotomy changes are seen there is evidence of previous gastric\LAP-BAND daniels rgery. Postcholecystectomy clips. IMPRESSION: 1. Diffuse osteopenia with multilevel degenerative disc disease and scoliosis.
--- NOTE | 2023-05-07 13:08 | XR ---
EXAMINATION TYPE: XR wrist limited LT DATE OF EXAM: 05/07/2023 COMPARISON: NONE HISTORY: Pain TECHNIQUE: Four views submitted. FINDINGS: Diffuse osteopenia. There is a linear lucency along the ulnar styloid suspicious for hairline fractur e. Remaining osseous structures intact. IMPRESSION: 1. Hairline lucency through the base of the ulnar styloid suspicious for an underlying nondisplaced f racture. Correlate with point tenderness.
--- NOTE | 2023-05-07 13:10 | XR ---
EXAM TYPE: LUMBAR SPINE X RAY SERIES COMPARISON: NONE HISTORY: Pain TECHNIQUE: 4 views are submitted. FINDINGS: Alignment is anatomic. The pedicles are intact. The transverse processes are intact. Diffuse osteop enia with multilevel degenerative disc disease and facet arthropathy. Lap band procedure is seen and there is surgical clips in the gallbladder fossa. Vascular calcifications are seen. There is SI joint arthropathy. Multilevel facet arthropathy. Grade one retrolisthesis L1-2, L2-3 and L3-4. IMPRESSION: 1. Multilevel degenerative disc disease and facet arthropathy.
== END | disposition home or self-care (01) ==
LOC: RADXRMAIN 12:00
PROVIDERS: ATTEND Family Medicine
DX: M51.34 Other intervertebral disc degeneration, thoracic region (principal); M85.88 Other specified disorders of bone density and structure, other site; M41.84 Other forms of scoliosis, thoracic region; M79.602 Pain in left arm; M79.642 Pain in left hand; M51.37 Other intervertebral disc degeneration, lumbosacral region; M47.817 Spondylosis without myelopathy or radiculopathy, lumbosacral region; R60.0 Localized edema
CPT/HCPCS: 72070; 72100

== ENCOUNTER 2023-07-13 07:25 | Day surgery (SDC) | payer BC ==
[2023-07-13] MEDS: LACTATED RINGERS 1,000 ML IV SCH (07:54)
[2023-07-13] MEDS: IV FLUID CONTINUATION 1,000 ML IV ONE (07:54)
[2023-07-13 07:59] VITALS: RESP 16; TEMP 97.5
[2023-07-13] MEDS: fentaNYL (PF) 50 MCG/ML 2 ML AMP IVP ONE (08:09)
[2023-07-13] MEDS ORDERED: PROPOFOL 10 MG/ML 20 ML VIAL IV ONE (08:25)
[2023-07-13] MEDS ORDERED: LIDOCAINE 1% INJ 10MG/ML (20 ML MDV) ONE (08:25)
--- NOTE | 2023-07-13 08:45 | P.PCN ---
Date of Procedure: 07/13/23 Procedure(s) Performed: Brief history: Patient is a pleasant 63-year-old scheduled for an elective upper endoscopy as well as colonoscopy as a part of evaluation of intermittent episodes of nausea vomiting and change in bowel habits for the last several months duration. Procedure performed: Esophagogastroduodenoscopy biopsy with snare polypectomy Colonoscopy Preoperative diagnosis: Nausea vomiting Change in bowel habit Anesthesia: MAC Procedure: After informed consent was obtained from the patient was brought into the endoscopy unit and IV sedation was administered by anesthesia under continuous monitoring. Initially upper endoscopy was done. The Olympus GF 160 video endoscope was inserted inserted into the mouth and esophagus intubated without any difficulty and was gradually advanced into the stomach and duodenum and carefully examined. The bulb and second part of the duodenum appeared normal. The scope was then withdrawn into the stomach adequately insufflated with air and upon careful examination the antrum and body, gastritis and biopsies were done from this area. Mucosa of the cardia and fundus appeared normal. The scope was then withdrawn into the esophagus. The GE junction was located at 40 cm to the incisors. It appeared regular with no erythema erosions or ulcera tions. Rest of the esophagus appeared normal. Patient tolerated the procedure well. At this time the patient continued to remain sedation. Initial digital rectal examination was normal. Olympus CF 160 video colonoscope was then inserted into the rectum and gradually advanced to the cecum without any difficulty. Careful examination was performed as the scope was gradually being withdrawn. The prep was excellent. The cecum, ascending colon, transverse colon, descending colon polyp in the sigmoid colon there were 2 polyps measuring 5 mm and 1 cm in size both of which were removed by snare polypectomy. Scattered sigmoid diverticulosis seen. Rest of, sigmoid colon and rectum appeared normal. Retroflexion was performed in the rectum and no lesions were noted. Patient tolerated the procedure well. Impression: 1. Upper endoscopy revealed mild antral gastritis distal esophagitis or peptic ulcer disease 2. Colonoscopy revealed 5 mm and 1 cm sigmoid colon polyps s/p polypectomy and scattered sigmoid diverticula Recommendations: Findings of this examination were discussed with the patient as well as family. She was advised to follow-up with the biopsy results. If the biopsy reveals adenoma she can have repeat colonoscopy in 3 years.
[2023-07-13 09:42] VITALS: BP 140/80; PULSE 63
== END 2023-07-13 09:38 | disposition home or self-care (01) ==
LOC: ORWHC2ENDO 07:25
PROVIDERS: ATTEND Internal Medicine Gastroenterology
DX: K29.50 Unspecified chronic gastritis without bleeding (principal); K57.30 Diverticulosis of large intestine without perforation or abscess without bleeding; D12.5 Benign neoplasm of sigmoid colon; K31.A0 Gastric intestinal metaplasia, unspecified; I25.10 Atherosclerotic heart disease of native coronary artery without angina pectoris; I10 Essential (primary) hypertension; E78.5 Hyperlipidemia, unspecified; E07.9 Disorder of thyroid, unspecified; G40.909 Epilepsy, unspecified, not intractable, without status epilepticus; M06.9 Rheumatoid arthritis, unspecified; F41.9 Anxiety disorder, unspecified; Z79.899 Other long term (current) drug therapy; Z79.890 Hormone replacement therapy; Z79.82 Long term (current) use of aspirin
CPT/HCPCS: 88305; 88342; 45385; 43239; J2001; J3010; J2704

== ENCOUNTER → 2023-10-24 | Outpatient (CLI) | payer BC ==
--- NOTE | 2023-10-24 13:31 | CT ---
INDICATION: Patient age:Female; 63 years old; Reason for study: J84.9 INTERSTITIAL PULMONARY DISEAS; [facility]. COMPARISON: CTA chest 09/14/2022 TECHNIQUE: Multiple thin axial images were obtained through the chest at selected intervals. Prone and supine in spiratory along with supine expiratory images were submitted for review. Please note that due to inte rval acquisition images as defined by high-resolution CT protocol the entire lung parenchyma is not e valuated, therefore small nodular densities may not be visualized. Evaluation of vascular structures , viscera and lymphatics is limited due to lack of intravenous contrast administration. One or more C T dose reduction strategies were utilized during this examination. Total DLP 616 mGycm. FINDINGS: LUNGS: There is no evidence of interstitial thickening, significant groundglass opacity, honeycombing . Right middle and upper lobe anterior linear scarring. No bronchiectasis. No acute area of infiltrat stephan or consolidative change. LARGE AIRWAYS: Central airways are patent. No dynamic airway collapse on expiratory imaging. PLEURA: No pleural effusion. Stable posterior left lower lobe pleural thickening with few calcificati ons. HEART AND PERICARDIUM: Heart is normal in size. There is no pericardial effusion. Post-CABG changes. MEDIASTINUM AND SAKINA: No mediastinal or hilar lymphadenopathy or soft tissue mass. VESSELS: The thoracic aorta is normal in course and caliber. CHEST WALL AND DIAPHRAGM: Normal. LOWER NECK: Normal. UPPER ABDOMEN: Postsurgical changes from gastric lap band. Postcholecystectomy changes. MUSCULOSKELETAL: No acute fracture. Median sternotomy wires. IMPRESSION: Stable posterior left lower lobe pleural thickening with few calcifications. Stable linear scarring w ithin the right upper and midlung anteriorly. No CT evidence for interstitial lung disease.
== END | disposition home or self-care (01) ==
LOC: RADCTMAIN 12:37
PROVIDERS: ATTEND Internal Medicine Critical Care Medicine
DX: J84.9 Interstitial pulmonary disease, unspecified
CPT/HCPCS: 71250

== ENCOUNTER → 2024-08-20 | Outpatient (CLI) | payer BC ==
--- NOTE | 2024-08-20 11:03 | US ---
EXAMINATION TYPE: US kidneys/renal and bladder DATE OF EXAM: 08/20/2024 COMPARISON: CT abdomen and pelvis 09/17/2022 CLINICAL INDICATION: Female, 64 years old with history of R74.8 ABN FIND OF SERUM ENZ LEVEL, E11.9; TECHNIQUE: Grayscale imaging of the bilateral kidneys and urinary bladder: FINDINGS: EXAM MEASUREMENTS: Right Kidney: 7.9x4.2x4.4 cm Left Kidney: 9.0x4.2x4.0 cm limited study due to overlying gas Right Kidney: No hydronephrosis or masses seen Left Kidney: No hydronephrosis or masses seen Bladder: wnl Bilateral Jets seen: Yes No hydronephrosis or shadowing calculus. No solid renal mass identified. Corticomedullary differentia tion is maintained bilaterally. Urinary bladder is anechoic. Bilateral ureteral jets identified. IMPRESSION: Hydronephrosis or nephrolithiasis. [facility], , 08/20/2024 11:00 AM
== END | disposition home or self-care (01) ==
LOC: RADUSWWP 09:12
PROVIDERS: ATTEND Internal Medicine Nephrology
DX: R74.8 Abnormal levels of other serum enzymes (principal); E11.9 Type 2 diabetes mellitus without complications
CPT/HCPCS: 76770